=== PATIENT | male | born 1935 | race Caucasian/White ===

== ENCOUNTER 2018-04-15 13:05 | Emergency (ER) | payer MEDICARE, SELFPAY ==
[2018-04-15 13:26] VITALS: BP 160/81; PULSE 66; RESP 14; TEMP 36.8; O2SAT 96; BMI 29.0
--- NOTE | 2018-04-15 14:51 | DI.US.S_ITS ---
PROCEDURE: US PERIPH VENOUS LOW EXTREM BI INDICATIONS: BILATERAL LEG PAIN TECHNIQUE: Real-time imaging, as well as color and pulse Doppler interrogation, were performed of the deep veins of both legs from the inguinal ligament to the popliteal fossa. COMPARISON: None. FINDINGS: The deep veins are normally compressible, and free of intraluminal thrombus. Color and pulse Doppler demonstrate normal phasic intravascular flow. There is normal augmentation response to distal compression maneuver. IMPRESSION: No evidence of right lower extremity deep vein thrombosis. Dictated by: Tony Flores M.D. on 04/15/2018 at 14:32 Approved by: Tony Flores M.D. on 04/15/2018 at 14:32
[2018-04-15 15:00] VITALS: BP 152/76; PULSE 52; O2SAT 97
--- NOTE | 2018-04-15 15:32 | ED.LOWEXIN ---
HPI - Extremity Injury (Lower) General Chief Complaint: Extremity Injury, Lower Stated Complaint: THINKS HE HAS BLOOD CLOTS IN HIS LEGS Time Seen by Provider: 04/15/18 15:00 Source: patient Mode of arrival: ambulatory Limitations: no limitations History of Present Illness HPI Narrative: The patient is an 82-year-old male who presents with all right leg pain and left leg pain. He denies any recent falls. He has a history of multiple blood clots he is on Coumadin. He is worried that there might be a blood clot. He says it hurts when he is lying still sometimes when he is walking as well. He is able to walk he walks with a walker all the time. He is unable to walk without 1. He has right leg pain in the thigh on left leg pain in the groin. He feels his right leg all from his heel all the way up to his groin is hurting. Related Data Home Medications Medication Instructions Recorded Confirmed albuterol sulfate [Ventolin HFA] 2 puff INH BID #0 08/14/16 doxazosin 4 mg PO HS #0 08/14/16 hydrochlorothiazide 25 mg PO QDAY #0 08/14/16 metformin [Glucophage XR] 1,000 mg PO QPM #0 08/14/16 pantoprazole 40 mg PO QPM #0 08/14/16 warfarin [Coumadin] PO QPM #0 08/14/16 acetaminophen 2 tab PO BID #0 07/07/17 Previous Rx's Medication Instructions Recorded tramadol 50 mg PO Q6H PRN #10 tab 04/15/18 Allergies Allergy/AdvReac Type Severity Reaction Status Date / Time Penicillins [PENICILLINS] Allergy Unknown Verified 04/15/18 13:26 Review of Systems Review of Systems All systems reviewed & are unremarkable except as noted in HPI and below Constitutional Denies chills, Denies fever(s), Denies lethargy and Denies weakness Cardiovascular Denies chest pain, Denies irregular heart rhythm, Denies lightheadedness, Denies palpitations, Denies dyspnea, Denies dyspnea on exertion and Denies orthopnea Respiratory Denies cough, Denies dyspnea, Denies dyspnea on exertion and Denies wheezing Musculoskeletal Reports system reviewed and no additional complaints, except as docu Integumentary/Breasts Denies pruritus, Denies erythema, Denies rash and Denies wounds Neurologic Denies weakness Endocrine Denies palpitations Allergic/Immunologic Denies wheezing Exam Initial Vital Signs Initial Vital Signs: Vital Signs Temperature 98.2 F 04/15/18 13:26 Pulse Rate 66 04/15/18 13:26 Respiratory Rate 14 04/15/18 13:26 Blood Pressure 160/81 H 04/15/18 13:26 Pulse Oximetry 96 04/15/18 13:26 GENERAL: Alert elderly male no acute distress HEENT: Head atraumatic,EOMI, pupils reactive neck is supple CARDIOVASCULAR: Regular rate and rhythm without murmurs, rubs or gallops. RESPIRATORY: Breath sounds equal bilaterally, no wheezes rales or rhonchi. ABDOMEN: Soft, nontender. Normoactive bowel sounds all 4 quadrants. No guarding or rebound. EXTREMITIES: Normal range of motion, no clubbing or edema. Neurovascularly intact Distal pedal pulses are strong bilaterally no swelling of calves, no calf pain NEUROLOGICAL: Alert and oriented x4.Normal gait and speech. Cranial nerves II through XII grossly intact. SKIN: Warm, dry, no laceration, no petechiae, no rashes or lesions. Course Orders Ordered: ED Orders 04/15/18 14:51 US periph venous low extrem bi Stat Vital Signs - 8 hr 04/15/18 13:26 04/15/18 15:00 Temperature 98.2 F Pulse Rate 66 52 L Respiratory Rate 14 Blood Pressure 160/81 H Blood Pressure [Right Arm] 152/76 H Pulse Oximetry 96 97 MDM - Extremity Injury (Lower) Imaging Data Venous US: Radiologist's impression: PROCEDURE: US PERIPH VENOUS LOW EXTREM BI INDICATIONS: BILATERAL LEG PAIN TECHNIQUE: Real-time imaging, as well as color and pulse Doppler interrogation, were performed of the deep veins of both legs from the inguinal ligament to the popliteal fossa. COMPARISON: None. FINDINGS: The deep veins are normally compressible, and free of intraluminal thrombus. Color and pulse Doppler demonstrate normal phasic intravascular flow. There is normal augmentation response to distal compression maneuver. IMPRESSION: No evidence of right lower extremity deep vein thrombosis. Dictated by: Tony Flores M.D. on 04/15/2018 at 14:32 Discharge Plan Departure Patient Disposition: Home Clinical Impression: Osteoarthritis Discharge Date/Time: 04/15/18 16:14 Interventions: ED Discharge Assessment Last Done: 04/15/18 16:13 Instructions: DI for Arthritis Activity Restrictions/Additional Instructions: *You have been diagnosed with arthritis *What to do: Use a walker, increased walking as tolerated, no blood clot identified *Continue to take medications as directed -tramadol 50 mg every 6 hr if needed for severe pain *Follow up with your primary care provider in 2-3 days *Return to ER if you should have increasing pain, numbness, tingling, weakness or any new, worsening or concerning symptoms Prescriptions: New tramadol 50 mg tablet 50 mg PO Q6H PRN (Reason: pain) Qty: 10 RF: 0 No Action pantoprazole 40 MG tablet,delayed release (DR/EC) 40 mg PO QPM Qty: 0 RF: 0 hydrochlorothiazide 25 MG tablet 25 mg PO QDAY Qty: 0 RF: 0 warfarin [Coumadin] 5 MG tablet PO QPM Qty: 0 RF: 0 doxazosin 4 MG tablet 4 mg PO HS Qty: 0 RF: 0 albuterol sulfate [Ventolin HFA] 90 MCG/PUFF HFA aerosol inhaler 2 puff INH BID Qty: 0 RF: 0 metformin [Glucophage XR] 500 MG tablet extended release 24 hr 1,000 mg PO QPM Qty: 0 RF: 0 acetaminophen 650 MG tablet extended release 2 tab PO BID Qty: 0 RF: 0 Referrals: Jaclyn Palencia MD [Primary Care Provider] -
== END 2018-04-15 16:14 | disposition home or self-care (01) ==
PROVIDERS: Emergency Provider Emergency Medicine; PCP Internal Medicine
DX: M19.90 Unspecified osteoarthritis, unspecified site (principal)
CPT/HCPCS: 93970; 99283

== ENCOUNTER 2018-05-22 17:01 | Inpatient (IN) | payer MEDICARE, SELFPAY ==
[2018-05-22] VITALS (12 sets, daily range): BP systolic 109–138; BP diastolic 47–85; PULSE 71–104; RESP 21–28; TEMP 37.1–39.1; O2SAT 90–95; BMI 30.2
--- NOTE | 2018-05-22 | DI.CT.S_ITS ---
PROCEDURE: CT ANGIO CHEST PE PROTOCOL INDICATIONS: r/o PE or pneumonia TECHNIQUE: After the administration of intravenous contrast, 2 mm thick sections acquired from the pulmonary apices to the posterior costophrenic angles. 3-dimensional maximum intensity projection (MIP) coronal and sagittal reformats were then acquired through the thorax. For radiation dose reduction, the following was used: automated exposure control, adjustment of mA and/or kV according to patient size. COMPARISON: None. FINDINGS: Image quality: Excellent. Pulmonary arteries: Pulmonary arteries are normal in size, and demonstrate no intraluminal filling defects to suggest central pulmonary embolism. Lungs and pleura: Dependent changes are present within the bases. There is an overall appearance of increased pulmonary vascularity. No pleural effusions or pneumothorax. Central and peripheral airways are patent. Mediastinum: Heart size is normal, without pericardial effusion. No mediastinal or hilar adenopathy. Thoracic aorta is normal in caliber and enhancement. Esophagus is normal in caliber, without hiatal hernia. Bones and chest wall: No suspicious bony lesions. Ribs and thoracic spine appear intact throughout. Thyroid gland is unremarkable. No axillary or supraclavicular adenopathy. Abdomen: Multiple low attenuation hepatic foci are present suggestive of cysts. Stones are present within the gallbladder without wall thickening. Otherwise, visualized upper abdominal solid organs appear normal in the early arterial phase of enhancement. IMPRESSION: 1. No ulnar embolism. 2. Dependent changes within the bases. No consolidations or effusions. Increased pulmonary vascularity consistent with edema is present. 3. Cholelithiasis. Dictated by: Siri Samuel M.D. on 05/22/2018 at 20:33 Approved by: Siri Samuel M.D. on 05/22/2018 at 20:35
--- NOTE | 2018-05-22 17:11 | DI.CT.S_ITS ---
PROCEDURE: CT HEAD/BRAIN WO CON INDICATIONS: fall on coumadin last night TECHNIQUE: Noncontrast 4.5 mm thick angled axial sections acquired from the foramen magnum to the vertex, with coronal and sagittal reformats. For radiation dose reduction, the following was used: automated exposure control, adjustment of mA and/or kV according to patient size. COMPARISON: None. FINDINGS: Image quality: Excellent. CSF spaces: Basal cisterns are patent. No extra-axial fluid collections. The ventricles are symmetric in size and shape. Brain: No intracranial bleeds or masses. There is cerebral volume loss for age, with resultant ventricular and sulcal prominence. There are periventricular and deep white matter chronic small vessel ischemic changes. There is intracranial internal carotid artery atherosclerosis. Skull and face: Calvarium and visualized facial bones appear intact, without suspicious lesions. Sinuses: Visualized sinuses and mastoids are clear. IMPRESSION: 1. No acute intracranial process. 2. Moderate atrophy and chronic microvascular ischemic changes. Dictated by: Siri Samuel M.D. on 05/22/2018 at 18:02 Approved by: Siri Samuel M.D. on 05/22/2018 at 18:06
--- NOTE | 2018-05-22 17:11 | DI.CT.S_ITS ---
PROCEDURE: CT CERVICAL SPINE WO CON INDICATIONS: fall last night neck pain TECHNIQUE: Noncontrast 3 mm thick sections acquired from the skull base to the T4 level. Sagittal and coronal reformats were then constructed. For radiation dose reduction, the following was used: automated exposure control, adjustment of mA and/or kV according to patient size. COMPARISON: None. FINDINGS: Image quality: Excellent. Bones: No fractures or dislocations. Visualized superior ribs are intact. Multilevel degenerative disc space narrowing is present most severe at C5-6 and C6-7. There is trace anterolisthesis of C4 on C5, trace retrolisthesis of C6 on C7. Soft tissues: Prevertebral soft tissues are normal in thickness. No paravertebral hematomas. No apical pneumothoraces. IMPRESSION: No visualized fracture. Dictated by: Siri Samuel M.D. on 05/22/2018 at 18:06 Approved by: Siri Samuel M.D. on 05/22/2018 at 18:08
--- NOTE | 2018-05-22 17:12 | DI.RAD.S_ITS ---
PROCEDURE: XR CHEST 1V INDICATIONS: chest pain TECHNIQUE: One view of the chest was acquired. COMPARISON: [facility], CHEST 1 VIEW, 07/07/2017, 10:32. [facility], CHEST 1 VIEW, 08/14/2016, 13:47. FINDINGS: Surgical changes and devices: None. Lungs and pleura: No pleural effusions or pneumothorax. Increased pulmonary vascularity is present suggestive of edema. There is trace blunting of the costophrenic angles, unchanged and likely scarring. Mediastinum: Mediastinal contours appear normal. Heart size is normal. Bones and chest wall: No suspicious bony lesions. Overlying soft tissues appear unremarkable. IMPRESSION: Increased vascularity suggestive of edema. Dictated by: Siri Samuel M.D. on 05/22/2018 at 18:06 Approved by: Siri Samuel M.D. on 05/22/2018 at 18:06
[2018-05-22 17:20] LABS: Add Manual Diff / Slide Review NO; Basophils Percent Auto 0.1 % (0-2); Eosinophils Percent Auto 0.5 % (2-4); Hematocrit 41.7 % (41-53); Hemoglobin 13.8 g/dL (13.5-17.5); Lymphocytes Percent Auto 7.9 % (25-40); Mean Corpuscular HGB Conc 33.1 % (30-36); Mean Corpuscular Volume 99.7 fL (80-100); Monocytes Percent Auto 1.3 % (3-14); Neutrophils Absolute Auto 6900 /uL (3000-5900); Neutrophils Percent Auto 90.2 % (50-75); Platelet Count 121 X10^3/uL (150-400); Red Blood Cell Count 4.18 X10^6/uL (4.5-5.9); Red Cell Distribution Width 14.9 % (11.6-14.8); White Blood Cell Count 7.7 X10^3/uL (4.5-11.0)
[2018-05-22 17:21] LABS: INR 1.4 (0.9-1.3); Prothrombin Time 15.2 SECONDS (10.1-12.7)
--- NOTE | 2018-05-22 17:21 | ED_ITS ---
HPI - Weakness General Chief complaint: Weakness Stated complaint: Weakness, Shaking, fell last night Time Seen by Provider: 05/22/18 17:11 Source: EMS Mode of arrival: EMS Limitations: no limitations History of Present Illness HPI Narrative: Patient is a 82-year-old male who presents with generalized weakness and shakes. Does been ongoing for the last 2 days he has got extremely weak today he was unable to walk or stand with EMS. He visibly has she tremors. He said 2 days ago he had some significant chest pain and it went away and he was short of breath at that time. Last night he fell and hit is head he is unsure if he lost consciousness or not he has not had any vomiting. He does have some subsequent next pain from it but no numbness or tingling. MD Complaint: generalized weakness Related Data Home Medications Medication Instructions Recorded Confirmed albuterol sulfate [Ventolin HFA] 2 puff INH BID #0 08/14/16 doxazosin 4 mg PO HS #0 08/14/16 hydrochlorothiazide 25 mg PO QDAY #0 08/14/16 metformin [Glucophage XR] 1,000 mg PO QPM #0 08/14/16 pantoprazole 40 mg PO QPM #0 08/14/16 warfarin [Coumadin] PO QPM #0 08/14/16 acetaminophen 2 tab PO BID #0 07/07/17 Previous Rx's Medication Instructions Recorded tramadol 50 mg PO Q6H PRN #10 tab 04/15/18 Allergies Allergy/AdvReac Type Severity Reaction Status Date / Time Penicillins [PENICILLINS] Allergy Unknown Verified 04/15/18 13:26 Review of Systems Review of Systems All systems reviewed & are unremarkable except as noted in HPI and below Constitutional Reports body ache(s), Reports fatigue, Denies frequent falls and Reports headache(s) Eyes Denies change in vision, Denies eye discharge, Denies irritation and Denies loss of vision ENT Ears, Nose, Mouth, and Throat: Reports headache(s) Cardiovascular Reports as per HPI, Reports chest pain and Reports dyspnea Respiratory Reports as per HPI, Denies cough and Reports dyspnea Gastrointestinal Gastrointestinal: Denies abdominal pain, Denies change in bowel habits, Denies diarrhea, Denies nausea and Denies vomiting Musculoskeletal Reports myalgias Integumentary/Breasts Denies pruritus, Denies erythema, Denies rash and Denies wounds Neurologic Denies abnormal speech, Denies frequent falls, Reports headache(s), Denies loss of vision and Reports tremor(s) Endocrine Reports fatigue PFSH Medical History Colon cancer (Acute) DVT (deep venous thrombosis) (Acute) Diabetes (Acute) Social History Smoking Status: Former smoker Exam Initial Vital Signs Initial Vital Signs: Vital Signs Temperature 99.2 F 05/22/18 17:02 Pulse Rate 97 H 05/22/18 17:02 Respiratory Rate 21 05/22/18 17:02 Blood Pressure 138/65 05/22/18 17:02 Pulse Oximetry 92 05/22/18 17:02 Const General: cooperative and ill appearing Orientation: alert, awake and oriented x3 Other: Visible tremors and rigors HENMT Head: abrasion (Posterior) Ears: hearing grossly normal bilaterally Nose: external nose normal Eyes General: appearance normal, both eyes and all related structures Eyelids: eyelids normal Pupils: PERRL EOM: EOM intact bilaterally Neck Neck: tender (Mid line tenderness no step-offs collar placed in the ED) Chest Chest: normal inspection of the chest Resp Effort & Inspection: normal respiratory effort and able to speak in complete sentences Auscultation: clear to auscultation bilaterally, no rales, no rhonchi and no wheezes Cardio Rate: regular rate Rhythm: regular rhythm Heart Sounds: S1 normal and S2 normal GI Inspection: non-distended Palpation: soft, no hepatosplenomegaly, No guarding, No pulsatile mass and No tender Auscultation: normal bowel sounds Skin General: mottling and cool/cold Trauma: abrasion (Posterior head no surrounding erythema wound is healing) Neuro General: alert, awake, oriented x3 and deep tendon reflexes 2+ bilaterally Cranial Nerves: CN's II-XI intact bilaterally Cognition: normal cognition Speech: speech normal Motor: strength abnormal (Weaker in lower extremities especially left leg) Extrem General: normal to inspection and full ROM Scores qSOFA Altered Mental Status (GCS <15): No Respiratory rate greater than/equal to 22: Yes Systolic blood pressure less than or equal to 100: No qSOFA Total: 1 0-1 Not High Risk 1-3 High risk Course Orders Ordered: ED Orders 05/22/18 16:50 Complete Blood Count AUTO DIFF Stat Comprehensive Metabolic Panel Stat Partial Thromboplastin Time Stat Procalcitonin Stat Prothrombin Time INR Stat Troponin & CK Cardiac Panel Stat 05/22/18 17:11 CT cervical spine wo con Stat CT head/brain wo con Stat EKG-12 Lead Routine 05/22/18 17:12 XR chest 1V Stat 05/22/18 17:34 B Type Natriuretic Peptide Stat 05/22/18 17:42 Ictotest Urine Stat Urinalysis and Microscopic Stat Urine Culture Stat 05/22/18 17:50 Lactate (Lactic Acid) Stat 05/22/18 18:05 Blood Culture Stat Sodium Chloride (Normal Saline 0.9%) 1,000 mls @ 200 mls/hr IV CONT DEIDRA Last Infusion: 05/22/18 18:10 Dose: 150 mls/hr Admin: 05/22/18 17:38 Dose: 200 mls/hr Levofloxacin (Levaquin) 750 mg in 150 mls @ 100 mls/hr IV NOW ONE Stop: 05/22/18 19:28 Metronidazole (Flagyl) 500 mg in 100 mls @ 100 mls/hr IV NOW ONE Stop: 05/22/18 19:28 Sodium Chloride (Normal Saline 0.9%) 3,374.73 mls @ 1,124.91 mls/hr 30 ml/kg infuse over 3 hr (3374.73 ml) IV CONT DEIDRA Discontinued Medications Acetaminophen (Tylenol) 975 mg PO NOW ONE Stop: 05/22/18 17:50 Last Admin: 05/22/18 17:51 Dose: 975 mg Vital Signs - 8 hr 05/22/18 17:02 05/22/18 17:57 05/22/18 18:23 Temperature 99.2 F Pulse Rate 97 H 101 H 99 H Respiratory Rate 21 21 26 H Blood Pressure 138/65 Blood Pressure [Left Arm] 131/54 L Pulse Oximetry 92 95 94 MDM - Weakness Lab Data Attestation: I reviewed the patient's lab results. Result diagrams: 05/22/18 16:50 05/22/18 16:50 Lab Results 05/22/18 05/22/18 05/22/18 Range/Units 16:50 16:50 16:50 WBC 7.7 (4.5-11.0) X10^3/uL RBC 4.18 L (4.5-5.9) X10^6/uL Hgb 13.8 (13.5-17.5) g/dL Hct 41.7 (41-53) % MCV 99.7 (80-100) fL MCH 33.0 (26-34) PG MCHC 33.1 (30-36) % RDW 14.9 H (11.6-14.8) % Plt Count 121 L (150-400) X10^3/uL Neut % (Auto) 90.2 H (50-75) % Lymph % (Auto) 7.9 L (25-40) % [place] % (Auto) 1.3 L (3-14) % Eos % (Auto) 0.5 L (2-4) % Baso % (Auto) 0.1 (0-2) % Neut # (Auto) 6900 H (4513-5469) /uL PT 15.2 H (10.1-12.7) SECONDS INR 1.4 H (0.9-1.3) APTT 28 (26.4-36.2) SECONDS Sodium 147 H (137-145) mmol/L Potassium 3.4 (3.4-5.1) mmol/L Chloride 102 (98-107) mmol/L Carbon Dioxide 26 (22-32) mmol/L BUN 41 H (9-20) mg/dL Creatinine 1.10 (0.66-1.25) mg/dL Estimated GFR > 60.0 (>60) mL/min BUN/Creatinine Ratio 37.3 H (6-22) Glucose 124 H (80-110) mg/dL Lactate (0.7-2.1) mmol/L Calcium 9.2 (8.4-10.2) mg/dL Total Bilirubin 2.9 H (0.2-1.3) mg/dL AST 60 H (17-59) IU/L ALT 102 H (21-72) IU/L Alkaline Phosphatase 77 (38-126) U/L Total Creatine Kinase 150 (55-170) U/L CK-MB (CK-2) 1.90 (<2.37) ng/mL CK-MB (CK-2) Rel Index 1.3 L (1.5-5.0) % Troponin I 0.048 H (0.01-0.034) ng/mL Total Protein 7.3 (6.3-8.2) g/dL Albumin 4.3 (3.5-5.0) g/dL Globulin 3.0 (1.7-4.1) g/dL Albumin/Globulin Ratio 1.4 (1.0-2.8) Procalcitonin (<0.5) ng/mL Urine Color Urine Appearance Urine pH (4.5-8.0) Ur Specific [place] (1.000-1.035) Urine Protein (Negative) Urine Glucose (UA) (Normal) g/dL Urine Ketones (NEGATIVE) Urine Occult Blood (Negative) Urine Nitrate (Negative) Urine Bilirubin (NEGATIVE) Urine Ictotest (Negative) Urine Urobilinogen (0.2) E.U./dL Ur Leukocyte Esterase (NEGATIVE) Urine RBC (0-5/HPF) Urine WBC (0-5/HPF) Ur Squamous Epith Cells Amorphous Sediment Urine Bacteria (None) Hyaline Casts (None) Urine Mucus (Negative) Ur Culture Indicated? Micro UA Comment 05/22/18 05/22/18 05/22/18 Range/Units 16:50 17:42 17:50 WBC (4.5-11.0) X10^3/uL RBC (4.5-5.9) X10^6/uL Hgb (13.5-17.5) g/dL Hct (41-53) % MCV (80-100) fL MCH (26-34) PG MCHC (30-36) % RDW (11.6-14.8) % Plt Count (150-400) X10^3/uL Neut % (Auto) (50-75) % Lymph % (Auto) (25-40) % [place]ner % (Auto) (3-14) % Eos % (Auto) (2-4) % Baso % (Auto) (0-2) % Neut # (Auto) (2440-0325) /uL PT (10.1-12.7) SECONDS INR (0.9-1.3) APTT (26.4-36.2) SECONDS Sodium (137-145) mmol/L Potassium (3.4-5.1) mmol/L Chloride (98-107) mmol/L Carbon Dioxide (22-32) mmol/L BUN (9-20) mg/dL Creatinine (0.66-1.25) mg/dL Estimated GFR (>60) mL/min BUN/Creatinine Ratio (6-22) Glucose (80-110) mg/dL Lactate 4.6 H (0.7-2.1) mmol/L Calcium (8.4-10.2) mg/dL Total Bilirubin (0.2-1.3) mg/dL AST (17-59) IU/L ALT (21-72) IU/L Alkaline Phosphatase (38-126) U/L Total Creatine Kinase (55-170) U/L CK-MB (CK-2) (<2.37) ng/mL CK-MB (CK-2) Rel Index (1.5-5.0) % Troponin I (0.01-0.034) ng/mL Total Protein (6.3-8.2) g/dL Albumin (3.5-5.0) g/dL Globulin (1.7-4.1) g/dL Albumin/Globulin Ratio (1.0-2.8) Procalcitonin 10.97 H (<0.5) ng/mL Urine Color Yellow Urine Appearance Clear Urine pH 5.0 (4.5-8.0) Ur Specific [place] 1.025 (1.000-1.035) Urine Protein 1+ H (Negative) Urine Glucose (UA) Negative (Normal) g/dL Urine Ketones Trace H (NEGATIVE) Urine Occult Blood Trace-intact (Negative) Urine Nitrate Negative (Negative) Urine Bilirubin 1+ H (NEGATIVE) Urine Ictotest Negative (Negative) Urine Urobilinogen 1.0 (0.2) E.U./dL Ur Leukocyte Esterase Trace H (NEGATIVE) Urine RBC 0-1/hpf (0-5/HPF) Urine WBC 1-5/hpf (0-5/HPF) Ur Squamous Epith Cells 1-5 /hpf Amorphous Sediment 2+ Urine Bacteria Few (2-10) H (None) Hyaline Casts 0-1/lpf (None) Urine Mucus 2+ H (Negative) Ur Culture Indicated? Specimen cultured Micro UA Comment Not Reportable Imaging Data Chest x-ray: Radiologist's impression: PROCEDURE: XR CHEST 1V INDICATIONS: chest pain TECHNIQUE: One view of the chest was acquired. COMPARISON: formerly [facility], CHEST 1 VIEW, 07/07/2017, 10:32. formerly [facility], CHEST 1 VIEW, 08/14/2016, 13:47. FINDINGS: Surgical changes and devices: None. Lungs and pleura: No pleural effusions or pneumothorax. Increased pulmonary vascularity is present suggestive of edema. There is trace blunting of the costophrenic angles, unchanged and likely scarring. Mediastinum: Mediastinal contours appear normal. Heart size is normal. Bones and chest wall: No suspicious bony lesions. Overlying soft tissues appear unremarkable. IMPRESSION: Increased vascularity suggestive of edema. Dictated by: Siri Samuel M.D. on 05/22/2018 at 18:06 CT scan - head: Radiologist's impression: PROCEDURE: CT HEAD/BRAIN WO CON INDICATIONS: fall on coumadin last night TECHNIQUE: Noncontrast 4.5 mm thick angled axial sections acquired from the foramen magnum to the vertex, with coronal and sagittal reformats. For radiation dose reduction, the following was used: automated exposure control, adjustment of mA and/or kV according to patient size. COMPARISON: None. FINDINGS: Image quality: Excellent. CSF spaces: Basal cisterns are patent. No extra-axial fluid collections. The ventricles are symmetric in size and shape. Brain: No intracranial bleeds or masses. There is cerebral volume loss for age , with resultant ventricular and sulcal prominence. There are periventricular and deep white matter chronic small vessel ischemic changes. There is intracranial internal carotid artery atherosclerosis. Skull and face: Calvarium and visualized facial bones appear intact, without suspicious lesions. Sinuses: Visualized sinuses and mastoids are clear. IMPRESSION: 1. No acute intracranial process. 2. Moderate atrophy and chronic microvascular ischemic changes. Dictated by: Siri Samuel M.D. on 05/22/2018 at 18:02 CT Cervical: Radiologist's impression: PROCEDURE: CT CERVICAL SPINE WO CON INDICATIONS: fall last night neck pain TECHNIQUE: Noncontrast 3 mm thick sections acquired from the skull base to the T4 level. Sagittal and coronal reformats were then constructed. For radiation dose reduction, the following was used: automated exposure control, adjustment of mA and/or kV according to patient size. COMPARISON: None. FINDINGS: Image quality: Excellent. Bones: No fractures or dislocations. Visualized superior ribs are intact. Multilevel degenerative disc space narrowing is present most severe at C5-6 and C6-7. There is trace anterolisthesis of C4 on C5, trace retrolisthesis of C6 on C7. Soft tissues: Prevertebral soft tissues are normal in thickness. No paravertebral hematomas. No apical pneumothoraces. IMPRESSION: No visualized fracture. Dictated by: Siri Samuel M.D. on 05/22/2018 at 18:06 ECG Data Attestation: I personally reviewed and interpreted this ECG as follows: Prior ECG tracings: available for review Interpretation: Sinus rhythm rate 91 here interval 194 QRS 110 QTC 407 Q-waves noted in lead 3 previous EKG is similar. No acute ST or ischemic changes MDM Narrative Medical decision making narrative: Patient is hemodynamically stable. He has an increased lactic acid increased procalcitonin. No true findings of sepsis. His abdomen does remain soft. A chest x-ray did not show any pneumonia urine is clean. He is given IV fluids and empirically treated with Levaquin and Flagyl. Dr. Zambrano has been updated on patient's symptoms and test results. Agrees with admission request Flagyl. Discharge Plan Departure Patient Disposition: Admitted As Inpatient Clinical Impression: Sepsis Admit Date/Time: 05/22/18 18:29 Admit Provider: Eleanor Zambrano
[2018-05-22 17:23] LABS: PTT Partial Thromboplastin Tim 28 SECONDS (26.4-36.2)
[2018-05-22 17:34] LABS: Alanine Aminotransferase 102 IU/L (21-72); Albumin 4.3 g/dL (3.5-5.0); Albumin Globulin Ratio 1.4 (1.0-2.8); Alkaline Phosphatase 77 U/L (38-126); Aspartate Aminotransferase 60 IU/L (17-59); BUN Creatinine Ratio 37.3 (6-22); Bilirubin Total 2.9 mg/dL (0.2-1.3); Blood Urea Nitrogen 41 mg/dL (9-20); Calcium 9.2 mg/dL (8.4-10.2); Carbon Dioxide 26 mmol/L (22-32); Chloride 102 mmol/L (98-107); Creatine Kinase 150 U/L (55-170); Estimated Glomerular Filt Rate > 60.0 mL/min (>60); Glucose 124 mg/dL (80-110); HEMOLYSIS 23 (0-50); Potassium 3.4 mmol/L (3.4-5.1); Sodium 147 mmol/L (137-145); Total Protein 7.3 g/dL (6.3-8.2)
[2018-05-22] MEDS: SODIUM CHLORIDE 0.9% 1,000 ML 200 ML IV (17:38)
--- NOTE | 2018-05-22 17:40 | PC.NURSE ---
pt arrived with ns, 100ml infused, now infusing at 200ml hr via pump.
[2018-05-22 17:42] LABS: Procalcitonin 10.97 ng/mL (<0.5)
[2018-05-22 17:50] LABS: CKMB % Relative Index 1.3 % (1.5-5.0)
--- NOTE | 2018-05-22 17:50 | PC.NURSE ---
and lactate, pt requeted oxygen, applied 2lpm via nc.
[2018-05-22] MEDS: ACETAMINOPHEN 325 MG TABLET 975 MG PO (17:51)
[2018-05-22 17:57] LABS: Appearance Urine UA CLEAR; Bilirubin Urine UA 1+ (NEGATIVE); Color Urine UA YELLOW; Glucose Urine UA NEGATIVE (Normal); Ketones Urine UA TRACE (NEGATIVE); Leukocyte Esterase Urine UA TRACE (NEGATIVE); Nitrite Urine UA Negative (Negative); Occult Blood Urine UA TRACE-INTACT (Negative); Protein Urine UA 1+ (Negative); Specific Gravity Urine UA 1.025 (1.000-1.035)
[2018-05-22 18:10] LABS: Lactate (Lactic Acid) 4.6 mmol/L (0.7-2.1)
--- NOTE | 2018-05-22 18:13 | PC.NURSE ---
noted pt with generalized skin modeling, warm blanket applied. dr osman made aware.
[2018-05-22 18:24] LABS: Ictotest Urine Negative (Negative)
[2018-05-22 18:25] LABS: Amorphous Sediment Urine 2+; Bacteria Urine Few (2-10); Hyaline Casts Urine 0-1/LPF; Mucus Urine 2+ (Negative); RBC Urine 0-1/HPF (0-5/HPF); Squamous Epithelial Cell Urine 1-5 /HPF; WBC Urine 1-5/HPF (0-5/HPF)
[2018-05-22 18:26] LABS: Culture Indicated Urine Specimen Cultured
[2018-05-22 18:29] LABS: Troponin I 0.048 ng/mL (0.01-0.034)
--- NOTE | 2018-05-22 18:35 | PC.NURSE ---
recieved permission to give information to daughter antonia, daughter updated with plan of care. pt admission to the hospital.
--- NOTE | 2018-05-22 18:41 | PC.NURSE ---
change infusion rate to wide open vo dr osman
[2018-05-22] MEDS: levoFLOXacin 750 MG/150 ML PIGGYBACK 100 MG IV (18:42)
[2018-05-22] MEDS: SODIUM CHLORIDE 0.9% 999 ML IV (18:48)
--- NOTE | 2018-05-22 18:50 | PC.NURSE ---
pt remain alert and awake, no furthur scheevering, skin warm dry pink, maew. no nausea at this time.
--- NOTE | 2018-05-22 20:02 | P.HP_ITS ---
History of Present Illness Date Patient Seen: 05/22/18 Chief complaint: Weakness, Shaking, fell last night Narrative: Patient is an 82-year-old male with history of diabetes, GERD, history of multiple PEs, chronic lower extremity edema who was well until yesterday. Patient was helping his with Alzheimer's I get back to bed. He was attempting to write information down when he fell backwards hitting his head. He also reported having an episode of chest pressure. The pain was sharp. The pain lasted 20 min. It radiated down the left arm. He had associated shortness of breath which is chronic. He denied any palpitations. He had no sweating. He did feel chills. Patient reports shaking chills. He has documented fever of 102 here. He has had headaches since his fall. But he denies any cough or sneezing. Patient does have runny nose which is chronic. He is chronically short of breath. He uses an inhaler. His chest pain has since resolved. He has no history of cardiac disease. Patient was evaluated in the emergency department. CT scan of the head was negative. CT of the cervical spine was negative. Patient had a chest x-ray which was unremarkable. He had a UA which was negative. Patient was found to have a lactate of over 4. He received IV fluids for presumed severe sepsis. Patient's troponin was mildly elevated at 0.04. Procalcitonin was 10. Pa Coumadin for blood clots but noted elevated INR when taking ibuprofen. He was taking ibuprofen for chronic leg pain. Because of the chronic leg pain the patient I discontinued his Coumadin and has been alternating his Coumadin with ibuprofen. His INR upon admission was 1.4. Patient is admitted to the hospital for further evaluation. Patient History Medical History Colon cancer (Acute) DVT (deep venous thrombosis) (Acute) Diabetes (Acute) Family & Social History Safety & Behavioral: Feels Safe in Current Yes Environment Tobacco & Substance use: Smoking Status Former smoker Substance Use Type does not use Meds Home Medications Medication Instructions Recorded Confirmed Type albuterol sulfate [Ventolin HFA] 2 puff INH BID #0 08/14/16 05/22/18 History doxazosin 4 mg PO HS #0 08/14/16 05/22/18 History metformin [Glucophage XR] 1,000 mg PO QPM #0 08/14/16 05/22/18 History pantoprazole 40 mg PO QDRHS #0 08/14/16 05/22/18 History warfarin [Coumadin] 5 mg PO QPM #0 08/14/16 05/22/18 History acetaminophen 2 tab PO BID #0 07/07/17 05/22/18 History tramadol 50 mg PO Q6H PRN #10 tab 04/15/18 05/22/18 Rx Multi-Vitamins with Iron 1 tab PO DAILY 05/22/18 05/22/18 History gabapentin 300 mg PO BID 05/22/18 05/22/18 History Allergies Allergy/AdvReac Type Severity Reaction Status Date / Time Penicillins [PENICILLINS] Allergy Unknown Verified 04/15/18 13:26 Review of Systems Review of Systems All systems reviewed & are unremarkable except as noted in HPI and below Exam Vital Signs (past 8 hours): - 05/22/18 17:02 05/22/18 17:57 05/22/18 18:23 Temperature 99.2 F Pulse Rate 97 H 101 H 99 H Respiratory Rate 21 21 26 H Blood Pressure 138/65 Blood Pressure [Left Arm] 131/54 L Pulse Oximetry 92 95 94 05/22/18 18:30 05/22/18 18:46 Temperature 101.2 F H Pulse Rate 98 H Respiratory Rate 28 H Blood Pressure Blood Pressure [Left Arm] 127/47 L Pulse Oximetry 95 Oxygen Delivery Method Nasal Cannula Oxygen Flow Rate 2 Narrative Exam Narrative: Pleasant white male resting comfortably in no acute distress HEENT: NC/At, EOMI, Oropharynx dry mucus membranes, neck supple without adenopathy Lungs: Decreased breath sounds with left basilar crackles CV: RRR nl S1S2 2/6 BENITA Abd: Soft/ non tender/ non distended, no rebound tenderness, no boardlike rigidity, no palpable masses EXt: cool 1+ edema bilaterally Neuro: weak in lower extremities, non focal Skin: no lesions Psych: no delusions or hallucinations Objective Labs Result Diagrams: 05/22/18 16:50 05/22/18 16:50 Labs: Laboratory Results - last 24 hr 05/22/18 05/22/18 05/22/18 16:50 16:50 16:50 WBC 7.7 RBC 4.18 L Hgb 13.8 Hct 41.7 MCV 99.7 MCH 33.0 MCHC 33.1 RDW 14.9 H Plt Count 121 L Neut % (Auto) 90.2 H Lymph % (Auto) 7.9 L Emanuel % (Auto) 1.3 L Eos % (Auto) 0.5 L Baso % (Auto) 0.1 Neut # (Auto) 6900 H PT 15.2 H INR 1.4 H APTT 28 Sodium 147 H Potassium 3.4 Chloride 102 Carbon Dioxide 26 BUN 41 H Creatinine 1.10 Estimated GFR > 60.0 BUN/Creatinine Ratio 37.3 H Glucose 124 H Lactate Calcium 9.2 Total Bilirubin 2.9 H AST 60 H ALT 102 H Alkaline Phosphatase 77 Total Creatine Kinase 150 CK-MB (CK-2) 1.90 CK-MB (CK-2) Rel Index 1.3 L Troponin I 0.048 H B-Natriuretic Peptide Total Protein 7.3 Albumin 4.3 Globulin 3.0 Albumin/Globulin Ratio 1.4 Procalcitonin Urine Color Urine Appearance Urine pH Ur Specific [place] Urine Protein Urine Glucose (UA) Urine Ketones Urine Occult Blood Urine Nitrate Urine Bilirubin Urine Ictotest Urine Urobilinogen Ur Leukocyte Esterase Urine RBC Urine WBC Ur Squamous Epith Cells Amorphous Sediment Urine Bacteria Hyaline Casts Urine Mucus Ur Culture Indicated? Micro UA Comment 05/22/18 05/22/18 05/22/18 16:50 17:34 17:42 WBC RBC Hgb Hct MCV MCH MCHC RDW Plt Count Neut % (Auto) Lymph % (Auto) Emanuel % (Auto) Eos % (Auto) Baso % (Auto) Neut # (Auto) PT INR APTT Sodium Potassium Chloride Carbon Dioxide BUN Creatinine Estimated GFR BUN/Creatinine Ratio Glucose Lactate Calcium Total Bilirubin AST ALT Alkaline Phosphatase Total Creatine Kinase CK-MB (CK-2) CK-MB (CK-2) Rel Index Troponin I B-Natriuretic Peptide 617.0 H Total Protein Albumin Globulin Albumin/Globulin Ratio Procalcitonin 10.97 H Urine Color Yellow Urine Appearance Clear Urine pH 5.0 Ur Specific [place] 1.025 Urine Protein 1+ H Urine Glucose (UA) Negative Urine Ketones Trace H Urine Occult Blood Trace-intact Urine Nitrate Negative Urine Bilirubin 1+ H Urine Ictotest Negative Urine Urobilinogen 1.0 Ur Leukocyte Esterase Trace H Urine RBC 0-1/hpf Urine WBC 1-5/hpf Ur Squamous Epith Cells 1-5 /hpf Amorphous Sediment 2+ Urine Bacteria Few (2-10) H Hyaline Casts 0-1/lpf Urine Mucus 2+ H Ur Culture Indicated? Specimen cultured Micro UA Comment Not Reportable 05/22/18 17:50 WBC RBC Hgb Hct MCV MCH MCHC RDW Plt Count Neut % (Auto) Lymph % (Auto) Emanuel % (Auto) Eos % (Auto) Baso % (Auto) Neut # (Auto) PT INR APTT Sodium Potassium Chloride Carbon Dioxide BUN Creatinine Estimated GFR BUN/Creatinine Ratio Glucose Lactate 4.6 H Calcium Total Bilirubin AST ALT Alkaline Phosphatase Total Creatine Kinase CK-MB (CK-2) CK-MB (CK-2) Rel Index Troponin I B-Natriuretic Peptide Total Protein Albumin Globulin Albumin/Globulin Ratio Procalcitonin Urine Color Urine Appearance Urine pH Ur Specific [place] Urine Protein Urine Glucose (UA) Urine Ketones Urine Occult Blood Urine Nitrate Urine Bilirubin Urine Ictotest Urine Urobilinogen Ur Leukocyte Esterase Urine RBC Urine WBC Ur Squamous Epith Cells Amorphous Sediment Urine Bacteria Hyaline Casts Urine Mucus Ur Culture Indicated? Micro UA Comment Assessment & Plan (1) Severe sepsis: Problem details: Patient has had blood cultures drawn, is currently receiving 30 Cc/kg of IVF, Has been started on broad spectrum antibiotics. Will recheck lactate again Current visit: Yes Status: Acute (2) History of pulmonary embolus (PE): Problem details: Given history of chest pain, known recurrent PE's and low INR, will check CTA to r/o PE tonight Current visit: Yes Status: Acute (3) Dehydration: Problem details: Continue IV hydration as above Current visit: Yes Status: Acute (4) Hypernatremia: Problem details: Likely secondary to dehydration Current visit: Yes Status: Acute (5) Chest pain: Problem details: Serial cardiac enzymes and evaluate EKG. Current visit: No Status: Acute Plan: Assessment/Plan Narrative: Patient request to be DNR 60 minutes spent on this critcally ill patient
[2018-05-22 21:57] LABS: Reflexed Lactate in 2 Hours Y
[2018-05-22] MEDS: SODIUM CHLORIDE 0.9% 1,000 ML 100 ML IV (22:05)
[2018-05-22] MEDS: CEFTRIAXONE 2 GM/50 ML FROZ.PIGGY IV (22:06)
[2018-05-22] MEDS: DOCUSATE 100 MG CAPSULE PO (22:14)
[2018-05-22] MEDS: GABAPENTIN 300 MG CAPSULE PO (22:14)
[2018-05-22 22:28] LABS: Lactate 2HR (Lactic Acid Rflx) 1.4 mmol/L (0.7-2.1)
--- NOTE | 2018-05-22 22:39 | DI.US.S_ITS ---
PROCEDURE: US ABDOMEN COMPLETE INDICATIONS: GALLSTONES ON CT TECHNIQUE: Real-time scanning was performed of the abdominal and retroperitoneal organs, with image documentation. COMPARISON: None. FINDINGS: Liver: Liver is normal in size and homogeneous in echotexture, moderately hyperechoic consistent with fatty infiltration. There are several scattered simple appearing hepatic cysts measuring up to 4.4 cm of the right anterior hepatic segment and then also measuring up to 3.6 cm at the medial left hepatic lobe. Gallbladder: The gallbladder contains numerous stones, the largest of which measures up to 1.9 cm and is appear non-mobile, at and adjacent to the gallbladder neck. The gallbladder wall is abnormally thickened at 4.6-5.0 mm. Biliary ducts: Intrahepatic bile ducts are non-dilated. Extrahepatic bile duct caliber measures 12.0 mm. Normal is 6-7 mm or less in diameter, or 10 mm or less post-cholecystectomy. Pancreas: Visualized portions of the pancreas are sonographically normal. Spleen: Spleen is just above the upper limits of normal in size at 13 point for centimeters craniocaudad and homogeneous in echotexture. Kidneys: Kidneys are normal in size and echotexture. Right kidney measures 13.8 cm long; left kidney measures 15.3 cm long. No hydronephrosis or nephrolithiasis. No solid masses. Aorta: Visualized aorta is normal in caliber at less than 3 cm. Iliacs: Proximal common iliac arteries are normal in caliber at less than 2.5 cm. IVC: Intrahepatic inferior vena cava is patent. Miscellaneous: No free abdominal fluid. IMPRESSION: Abnormal gallbladder wall thickening, impacted calculi noted at the gallbladder neck area. Acute cholecystitis may explain the gallbladder wall thickening but chronic cholecystitis can also produce this appearance. Please correlate clinically. Abnormal distention of the common bile duct measuring up to 12 mm. Depending on clinical status this may indicate presence of the distal common duct stone which couldn't be adequately detected by MR cholangiogram. Incidental mode is made of moderate fatty infiltration throughout the liver. Mild splenomegaly. Dictated by: Harvey Yun M.D. on 05/23/2018 at 9:49 Approved by: Harvey Yun M.D. on 05/23/2018 at 9:54
--- NOTE | 2018-05-22 22:42 | PC.NURSE ---
1900 - Pt to room for ER. Transfer to bed via slider board. Temp on arrival 102.4. IVF bolus infusing. Oriented to room and routine. Dr. Zambrano into see pt. 1954 - Pt to CT with WALT Deutsch. R/o PE. 2199 - Dr. Zambrano called in to check CT results. Order obtained for [place]. in am. request call back with Lactate results. 2234 - Dr. Zambrano notified of Lactate results. Reviewed current vital signs. BP 115/68, HR 105, Temp 98.8. Orders obtained.
[2018-05-22] MEDS: AZITHROMYCIN 250 MG in DEXTROSE 5% IN WATER 250 ML IV (23:54)
[2018-05-23] VITALS (15 sets, daily range): BP systolic 105–150; BP diastolic 39–81; PULSE 58–103; RESP 14–28; TEMP 37.1–37.6; O2SAT 89–98
[2018-05-23] MEDS: ACETAMINOPHEN 325 MG TABLET 650 MG PO ×2 (02:47→08:35)
[2018-05-23 05:08] LABS: Add Manual Diff / Slide Review NO; Basophils Percent Auto 0.2 % (0-2); Eosinophils Percent Auto 0.4 % (2-4); Hematocrit 33.8 % (41-53); Hemoglobin 11.4 g/dL (13.5-17.5); Lymphocytes Percent Auto 6.7 % (25-40); Mean Corpuscular HGB Conc 33.8 % (30-36); Mean Corpuscular Hemoglobin 32.9 PG (26-34); Mean Corpuscular Volume 97.2 fL (80-100); Monocytes Percent Auto 5.8 % (3-14); Neutrophils Absolute Auto 6700 /uL (3000-5900); Neutrophils Percent Auto 86.9 % (50-75); Platelet Count 82 X10^3/uL (150-400); Red Blood Cell Count 3.48 X10^6/uL (4.5-5.9); Red Cell Distribution Width 14.3 % (11.6-14.8); White Blood Cell Count 7.7 X10^3/uL (4.5-11.0)
[2018-05-23 05:14] LABS: Alanine Aminotransferase 67 IU/L (21-72); Albumin 3.1 g/dL (3.5-5.0); Albumin Globulin Ratio 1.2 (1.0-2.8); Alkaline Phosphatase 57 U/L (38-126); Aspartate Aminotransferase 32 IU/L (17-59); Bilirubin Total 2.3 mg/dL (0.2-1.3); Blood Urea Nitrogen 27 mg/dL (9-20); Calcium 7.8 mg/dL (8.4-10.2); Carbon Dioxide 24 mmol/L (22-32); Chloride 108 mmol/L (98-107); Estimated Glomerular Filt Rate > 60.0 mL/min (>60); Globulin 2.5 g/dL (1.7-4.1); Glucose 142 mg/dL (80-110); HEMOLYSIS < 15 (0-50); Potassium 3.1 mmol/L (3.4-5.1); Sodium 141 mmol/L (137-145); Total Protein 5.6 g/dL (6.3-8.2)
[2018-05-23 05:25] LABS: Troponin I 0.054 ng/mL (0.01-0.034)
[2018-05-23] MEDS: INSULIN ASPART 100 UNIT/ML INSULN PEN SUBCUT ×2 (06:18→11:55)
--- NOTE | 2018-05-23 06:25 | PC.NURSE ---
This RN worked with Yajaira GODOY and agree with her assessment findings, ordered interventions, and care of the patient.
[2018-05-23] MEDS: GABAPENTIN 300 MG CAPSULE PO (08:35)
[2018-05-23] MEDS: ENOXAPARIN 40 MG/0.4 ML SYRINGE SUBCUT (08:35)
[2018-05-23] MEDS: PANTOPRAZOLE 40 MG TABLET PO ×2 (08:35→08:39)
[2018-05-23] MEDS: DOCUSATE 100 MG CAPSULE PO (08:36)
[2018-05-23 08:54] LABS: Acinetobacter baumannii Not Detected (Not Detect); Candida albicans Not Detected (Not Detect); Candida glabrata Not Detected (Not Detect); Candida krusei Not Detected (Not Detect); Candida parapsilosis Not Detected (Not Detect); Candida tropicalis Not Detected (Not Detect); E. coli Detected (Not Detect); Enterobacter cloacae complex Not Detected (Not Detect); Enterobacteriaceae species Not Detected (Not Detect); Enterococcus species Not Detected (Not Detect); Haemophilus influenzae Not Detected (Not Detect); KPC (carbapenem-resist gene) Not Detected (Not Detect); Listeria monocytogenes Not Detected (Not Detect); Neisseria meningitidis Not Detected (Not Detect); Proteus species Not Detected (Not Detect); Pseudomonas aeruginosa Not Detected (Not Detect); Serratia marcescens Not Detected (Not Detect); Staphylococcus species Not Detected (Not Detect); Streptococcus agalactiae (Gr B Not Detected (Not Detect); Streptococcus pneumonia Not Detected (Not Detect); Streptococcus pyogenes (Gr A) Not Detected (Not Detect); Streptococcus species Not Detected (Not Detect)
--- NOTE | 2018-05-23 11:34 | PM.PN.1 ---
Subjective Date Patient Seen: 05/23/18 Interval history: Patient complains of being thirsty, dry mouth, and back pain. He denies any abdominal pain. He really wants to eat. Overnight events were unremarkable Exam Vital Signs (past 8 hours): - 05/23/18 04:00 05/23/18 05:00 05/23/18 06:00 Temperature 99.2 F 99.1 F Pulse Rate 65 60 63 Respiratory Rate 28 H 25 H 18 Blood Pressure 105/39 L 107/55 L 128/64 Pulse Oximetry 97 98 95 05/23/18 07:00 05/23/18 07:31 05/23/18 08:02 Temperature Pulse Rate 70 Respiratory Rate 17 Blood Pressure 116/55 L Pulse Oximetry 97 97 96 05/23/18 08:11 05/23/18 08:30 05/23/18 08:35 Temperature 99.0 F 99.7 F H 99.7 F H Pulse Rate 73 Respiratory Rate 14 Blood Pressure 150/81 H Pulse Oximetry 95 05/23/18 10:39 Temperature Pulse Rate Respiratory Rate Blood Pressure Pulse Oximetry 96 Oxygen Delivery Method Nasal Cannula Oxygen Flow Rate 2 Narrative Exam Narrative: Pleasant gentleman in no acute distress Lungs: clear to auscultation CV:tachycardic nl S1S2 2/6 BENITA Abd: mildly distended, soft/ non tender/ hypoactive bowel tones/no boardlike rigidity or masses palpated Ext: no edema Objective Labs Result Diagrams: 05/23/18 04:43 05/23/18 04:43 Labs: Laboratory Results - last 24 hr No ulnar embolism. 2. Dependent changes within the bases. No consolidations or effusions. Increased pulmonary vascularity consistent with edema is present. 3. Cholelithiasis. Abnormal gallbladder wall thickening, impacted calculi noted at the gallbladder neck area. Acute cholecystitis may explain the gallbladder wall thickening but chronic cholecystitis can also produce this appearance. Please correlate clinically. Abnormal distention of the common bile duct measuring up to 12 mm. Depending on clinical status this may indicate presence of the distal common duct stone which couldn't be adequately detected by MR cholangiogram. Incidental mode is made of moderate fatty infiltration throughout the liver. Mild splenomegaly. 05/22/18 05/22/18 05/22/18 16:50 16:50 16:50 WBC 7.7 RBC 4.18 L Hgb 13.8 Hct 41.7 MCV 99.7 MCH 33.0 MCHC 33.1 RDW 14.9 H Plt Count 121 L Neut % (Auto) 90.2 H Lymph % (Auto) 7.9 L [place] % (Auto) 1.3 L Eos % (Auto) 0.5 L Baso % (Auto) 0.1 Neut # (Auto) 6900 H PT 15.2 H INR 1.4 H APTT 28 Sodium 147 H Potassium 3.4 Chloride 102 Carbon Dioxide 26 BUN 41 H Creatinine 1.10 Estimated GFR > 60.0 BUN/Creatinine Ratio 37.3 H Glucose 124 H Lactate Calcium 9.2 Total Bilirubin 2.9 H AST 60 H ALT 102 H Alkaline Phosphatase 77 Total Creatine Kinase 150 CK-MB (CK-2) 1.90 CK-MB (CK-2) Rel Index 1.3 L Troponin I 0.048 H B-Natriuretic Peptide Total Protein 7.3 Albumin 4.3 Globulin 3.0 Albumin/Globulin Ratio 1.4 Procalcitonin Urine Color Urine Appearance Urine pH Ur Specific [place] Urine Protein Urine Glucose (UA) Urine Ketones Urine Occult Blood Urine Nitrate Urine Bilirubin Urine Ictotest Urine Urobilinogen Ur Leukocyte Esterase Urine RBC Urine WBC Ur Squamous Epith Cells Amorphous Sediment Urine Bacteria Hyaline Casts Urine Mucus Ur Culture Indicated? Micro UA Comment Nasal Screen MRSA (PCR) A. baumannii (PCR) Adelina albicans (PCR) C. glabrata (PCR) C. krusei (PCR) C. parapsilosis (PCR) C. tropicalis (PCR) Enterobacteriac sp PCR E. cloacae complex PCR Enterococcus sp PCR E. coli (PCR) H. influenzae (PCR) Klebsiella oxytoca PCR Klebsiella pneumoniae List. monocytogenes PCR N. meningitidis (PCR) Proteus species (PCR) Serratia marcescens PCR Staphylococcus sp PCR Staph aureus (PCR) mecA-Methicil Res Gene Streptococcus sp PCR Group A Strep (PCR) Strep agalactiae (PCR) Strep pneumoniae (PCR) P. aeruginosa (PCR) Wilmer/B-Vanco Res Genes KPC-Carbap Res Gene PCR 05/22/18 05/22/18 05/22/18 16:50 16:50 17:34 WBC RBC Hgb Hct MCV MCH MCHC RDW Plt Count Neut % (Auto) Lymph % (Auto) [place] % (Auto) Eos % (Auto) Baso % (Auto) Neut # (Auto) PT INR APTT Sodium Potassium Chloride Carbon Dioxide BUN Creatinine Estimated GFR BUN/Creatinine Ratio Glucose Lactate Calcium Total Bilirubin AST ALT Alkaline Phosphatase Total Creatine Kinase CK-MB (CK-2) CK-MB (CK-2) Rel Index Troponin I B-Natriuretic Peptide 617.0 H Total Protein Albumin Globulin Albumin/Globulin Ratio Procalcitonin 10.97 H Urine Color Urine Appearance Urine pH Ur Specific [place] Urine Protein Urine Glucose (UA) Urine Ketones Urine Occult Blood Urine Nitrate Urine Bilirubin Urine Ictotest Urine Urobilinogen Ur Leukocyte Esterase Urine RBC Urine WBC Ur Squamous Epith Cells Amorphous Sediment Urine Bacteria Hyaline Casts Urine Mucus Ur Culture Indicated? Micro UA Comment Nasal Screen MRSA (PCR) A. baumannii (PCR) Not detected Adelina albicans (PCR) Not detected C. glabrata (PCR) Not detected C. krusei (PCR) Not detected C. parapsilosis (PCR) Not detected C. tropicalis (PCR) Not detected Enterobacteriac sp PCR Not detected E. cloacae complex PCR Not detected Enterococcus sp PCR Not detected E. coli (PCR) Detected H H. influenzae (PCR) Not detected Klebsiella oxytoca PCR Not detected Klebsiella pneumoniae Not detected List. monocytogenes PCR Not detected N. meningitidis (PCR) Not detected Proteus species (PCR) Not detected Serratia marcescens PCR Not detected Staphylococcus sp PCR Not detected Staph aureus (PCR) Not detected mecA-Methicil Res Gene Not Reportable Streptococcus sp PCR Not detected Group A Strep (PCR) Not detected Strep agalactiae (PCR) Not detected Strep pneumoniae (PCR) Not detected P. aeruginosa (PCR) Not detected Wilmer/B-Vanco Res Genes Not Reportable KPC-Carbap Res Gene PCR Not detected 05/22/18 05/22/18 05/22/18 17:42 17:50 19:15 WBC RBC Hgb Hct MCV MCH MCHC RDW Plt Count Neut % (Auto) Lymph % (Auto) [place] % (Auto) Eos % (Auto) Baso % (Auto) Neut # (Auto) PT INR APTT Sodium Potassium Chloride Carbon Dioxide BUN Creatinine Estimated GFR BUN/Creatinine Ratio Glucose Lactate 4.6 H Calcium Total Bilirubin AST ALT Alkaline Phosphatase Total Creatine Kinase CK-MB (CK-2) CK-MB (CK-2) Rel Index Troponin I B-Natriuretic Peptide Total Protein Albumin Globulin Albumin/Globulin Ratio Procalcitonin Urine Color Yellow Urine Appearance Clear Urine pH 5.0 Ur Specific [place] 1.025 Urine Protein 1+ H Urine Glucose (UA) Negative Urine Ketones Trace H Urine Occult Blood Trace-intact Urine Nitrate Negative Urine Bilirubin 1+ H Urine Ictotest Negative Urine Urobilinogen 1.0 Ur Leukocyte Esterase Trace H Urine RBC 0-1/hpf Urine WBC 1-5/hpf Ur Squamous Epith Cells 1-5 /hpf Amorphous Sediment 2+ Urine Bacteria Few (2-10) H Hyaline Casts 0-1/lpf Urine Mucus 2+ H Ur Culture Indicated? Specimen cultured Micro UA Comment Not Reportable Nasal Screen MRSA (PCR) Negative for mrsa A. baumannii (PCR) Adelina albicans (PCR) C. glabrata (PCR) C. krusei (PCR) C. parapsilosis (PCR) C. tropicalis (PCR) Enterobacteriac sp PCR E. cloacae complex PCR Enterococcus sp PCR E. coli (PCR) H. influenzae (PCR) Klebsiella oxytoca PCR Klebsiella pneumoniae List. monocytogenes PCR N. meningitidis (PCR) Proteus species (PCR) Serratia marcescens PCR Staphylococcus sp PCR Staph aureus (PCR) mecA-Methicil Res Gene Streptococcus sp PCR Group A Strep (PCR) Strep agalactiae (PCR) Strep pneumoniae (PCR) P. aeruginosa (PCR) Wilmer/B-Vanco Res Genes KPC-Carbap Res Gene PCR 05/22/18 05/23/18 05/23/18 22:10 04:43 04:43 WBC 7.7 RBC 3.48 L Hgb 11.4 L Hct 33.8 L MCV 97.2 MCH 32.9 MCHC 33.8 RDW 14.3 Plt Count 82 L Neut % (Auto) 86.9 H Lymph % (Auto) 6.7 L [place] % (Auto) 5.8 Eos % (Auto) 0.4 L Baso % (Auto) 0.2 Neut # (Auto) 6700 H PT INR APTT Sodium 141 Potassium 3.1 L Chloride 108 H Carbon Dioxide 24 BUN 27 H Creatinine 0.90 Estimated GFR > 60.0 BUN/Creatinine Ratio 30.0 H Glucose 142 H Lactate 1.4 Calcium 7.8 L Total Bilirubin 2.3 H AST 32 ALT 67 Alkaline Phosphatase 57 Total Creatine Kinase CK-MB (CK-2) CK-MB (CK-2) Rel Index Troponin I 0.054 H B-Natriuretic Peptide 459.0 H Total Protein 5.6 L Albumin 3.1 L Globulin 2.5 Albumin/Globulin Ratio 1.2 Procalcitonin Urine Color Urine Appearance Urine pH Ur Specific [place] Urine Protein Urine Glucose (UA) Urine Ketones Urine Occult Blood Urine Nitrate Urine Bilirubin Urine Ictotest Urine Urobilinogen Ur Leukocyte Esterase Urine RBC Urine WBC Ur Squamous Epith Cells Amorphous Sediment Urine Bacteria Hyaline Casts Urine Mucus Ur Culture Indicated? Micro UA Comment Nasal Screen MRSA (PCR) A. baumannii (PCR) Adelina albicans (PCR) C. glabrata (PCR) C. krusei (PCR) C. parapsilosis (PCR) C. tropicalis (PCR) Enterobacteriac sp PCR E. cloacae complex PCR Enterococcus sp PCR E. coli (PCR) H. influenzae (PCR) Klebsiella oxytoca PCR Klebsiella pneumoniae List. monocytogenes PCR N. meningitidis (PCR) Proteus species (PCR) Serratia marcescens PCR Staphylococcus sp PCR Staph aureus (PCR) mecA-Methicil Res Gene Streptococcus sp PCR Group A Strep (PCR) Strep agalactiae (PCR) Strep pneumoniae (PCR) P. aeruginosa (PCR) Wilmer/B-Vanco Res Genes KPC-Carbap Res Gene PCR Assessment & Plan (1) Cholelithiasis and acute cholecystitis with obstruction: Problem details: Patient has what looks like an impacted CBD stone. He does not have pain. I suspect this is chronic cholecystitis. Patient would benefit from GI consultation for ? ERCP, may need a cholecystomy tube and ultimately a cholecystectomy. Plan to transfer to [facility] for GI consult/Cholecystomy tube placement Current visit: Yes Status: Acute (2) Bacteremia due to Escherichia coli: Problem details: Will continue ceftriaxone, d/c Azithyromycin Current visit: Yes Status: Acute (3) Hypernatremia: Problem details: Likely secondary to dehydration Continue IV hydration Current visit: Yes Status: Acute (4) Severe sepsis: Problem details: Patient has had blood cultures drawn, is currently receiving 30 Cc/kg of IVF, Has been started on broad spectrum antibiotics. Will recheck lactate again Repeat Lactate improved Current visit: Yes Status: Acute (5) Hypokalemia due to loss of potassium: Current visit: Yes Status: Acute (6) Hypokalemia: Problem details: Will replace potassium in IVF Current visit: Yes Status: Acute Quality VTE Deep Vein Thrombosis/Pulmonary Embolism Present on Admission: No
[2018-05-23] MEDS: KCL 20 MEQ IN NS 1,000 ML 84 MEQ IV (11:53)
--- NOTE | 2018-05-23 12:15 | PC.NURSE ---
Addendum entered by Shanna Marinelli R.N. 05/23/18 16:05: 1600 - Ambulance crew arrived to transfer patient to [facility]. Day shift nurse Meaghan states that all discharge paperwork has been done and report has been given to receiving nurse. Discharge packet given to ambulance crew and questions answered. Patient left building with all belongings in good condition. Original Note: Addendum entered by Meaghan Wesley R.N. 05/23/18 13:59: Patients wallet, watch, clothing and shoes given to patients friend Edil to take home, per patients request. Original Note: Pt alert, oriented, c/o pain to back and shoulders,states its probably from my fall. Denies abdominal pain and nausea. Given tylenol for pain and fever of 99.7 at 0840. Abdominal ulttrasound complete and Dr Zambrano aware of results, pt remains NPO. Pt bathed and repostioned to left side. Pt able to reposition independently in bed, alarm on.
--- NOTE | 2018-05-23 12:48 | CM.DANOTE ---
DCP: Case received, EMR reviewed. Unable to meet with patient, was having ultra-sound, and bath. DCP template completed with information currently available. Patient is an 82 year old male who admitted yesterday evening to the care of the hospitalist team. PCP: Dr. Jaclyn Palencia. Payer: confirmed: Medicare. Patient came to hospital secondary to a ground level fall while assisting his , who has dementia. Patient also had symptoms of weakness, as well as tremors. Patient carries diagnosis of Sepsis, and also, Cholecystitis. Patient also has elevated troponin levels, is a diabetic as well.Lives at home with daughter, and . Unable to speak to patient, but did attempt to reach out to daughter, Liza, and left a message for her to call back. P: Patient is to be transfered to [facility], due to condition, and multiple co-morbidities. DCP here to offer any support during process if needed. Bushra Agustin RN/Clamp Jig Assembler
--- NOTE | 2018-05-23 12:59 | CM.DPC ---
DCP Cont: Checked in with hospitalist, Dr. Zambrano. Stated that they are waiting for availability of a bed at [facility]. Patient is in need of a stent, due to significance of Gall stone. P: DCP continue to assess and help with any resources needed. Bushra Agustin RN/Administrative Professional
== END 2018-05-23 16:07 | disposition short-term general hospital (02) | DRG 872 ==
LOC: ED 18:16 → AC 18:30 → ICU 19:09
PROVIDERS: Admitting Provider Internal Medicine; Emergency Provider Emergency Medicine; PCP Internal Medicine; Visit Provider Internal Medicine
DX: A41.51 Sepsis due to Escherichia coli [E. coli] (principal); E87.0 Hyperosmolality and hypernatremia; K80.01 Calculus of gallbladder with acute cholecystitis with obstruction; E86.0 Dehydration; R07.9 Chest pain, unspecified; E11.9 Type 2 diabetes mellitus without complications; K21.9 Gastro-esophageal reflux disease without esophagitis; Z86.711 Personal history of pulmonary embolism; Z79.01 Long term (current) use of anticoagulants; R60.0 Localized edema; Z79.84 Long term (current) use of oral hypoglycemic drugs
CPT/HCPCS: 36415; 70450; 71045; 71275; 72125; 76700; 80053; 81001; 82550; 82553; 82962; 83605; 83880; 84145; 84484; 85025; 85610; 85730; 87040; 87086; 87150; 87186; 87205; 87797; 93005; 96360; 99285; J0696; J1650; J1956

== ENCOUNTER → 2019-02-01 07:03 | Outpatient (CLI) | payer MEDICARE, SELFPAY ==
[2018-05-22 21:11] VITALS: BMI 30.2
[2019-02-01 09:25] LABS: Blood Urea Nitrogen 27 mg/dL (9-20); Calcium 9.2 mg/dL (8.4-10.2); Carbon Dioxide 26 mmol/L (22-32); Chloride 105 mmol/L (98-107); Cholesterol 134 mg/dL (140-199); Estimated Glomerular Filt Rate > 60.0 mL/min (>60); Glucose 149 mg/dL (80-110); HDL Cholesterol 46 mg/dL (40-60); HEMOLYSIS < 15 (0-50); LDL Cholesterol Calculated 28 mg/dL (<100); Potassium 3.9 mmol/L (3.4-5.1); Sodium 144 mmol/L (137-145); Triglycerides 300 mg/dL (35-150)
== END ==
PROVIDERS: PCP Internal Medicine; Visit Provider Internal Medicine
DX: I10 Essential (primary) hypertension (principal); E78.5 Hyperlipidemia, unspecified; E11.9 Type 2 diabetes mellitus without complications
CPT/HCPCS: 36415; 80048; 80061

== ENCOUNTER → 2019-06-22 14:37 | Outpatient (ROUT) | payer MEDICARE, SELFPAY ==
[2018-05-22 21:11] VITALS: BMI 30.2
[2019-06-22 14:56] LABS: BUN Creatinine Ratio 27.5 (6-22); Blood Urea Nitrogen 22 mg/dL (9-20); Calcium 9.5 mg/dL (8.4-10.2); Carbon Dioxide 25 mmol/L (22-32); Chloride 103 mmol/L (98-107); Cholesterol 119 mg/dL (140-199); Estimated Glomerular Filt Rate > 60.0 mL/min (>60); Glucose 129 mg/dL (80-110); HDL Cholesterol 41 mg/dL (40-60); HEMOLYSIS < 15 (0-50); LDL Cholesterol Calculated 27 mg/dL (<100); Potassium 4.1 mmol/L (3.4-5.1); Sodium 142 mmol/L (137-145); Triglycerides 253 mg/dL (35-150)
== END ==
PROVIDERS: PCP Internal Medicine; Visit Provider Internal Medicine
DX: I10 Essential (primary) hypertension (principal); E78.5 Hyperlipidemia, unspecified; M10.9 Gout, unspecified
CPT/HCPCS: 80048; 80061; 84550

== ENCOUNTER → 2019-06-30 06:44 | Outpatient (CLI) | payer MEDICARE, SELFPAY ==
[2018-05-22 21:11] VITALS: BMI 30.2
--- NOTE | 2019-06-30 | DI.ECHO.S_ITS ---
[facility] +---------+ [facility] +---------+ : : [address] [place] [address] : : : : [id number] : : : : Phone: [phone]---------+ Echocardiogram Report + + :Name: GUSTABO CLAUDIO Study Date: 06/30/2019 Height: 76 in : :[facility] Weight: 256 lb : : Gender: Male BSA: 2.5 m2 : :: 1935 Age: 83 yrs BP: 160/88 mmHg: :Reason For Study: Dyspnea : : Performed By: Alicia Hernandez : :Referring: MANN XIAO : + + Interpretation Summary Patient was in sinus bradycardia at the beginning of this study with HR of 49 bpm with abrupt increase in heart rate to 80s. Please correlate clinically and obtain heart monitor if indicated. The left ventricular ejection fraction is normal. There are no focal wall motion abnormalities. The right ventricle grossly appears normal in size with probable normal systolic function. Pulmonary artery pressures cannot be estimated because of the lack of a measurable TR jet velocity. The inferior vena cava was not visualized. No hemodynamically significant valvular abnormalities. No prior echo for comparison. Procedure: A two-dimensional transthoracic echocardiogram with color flow and Doppler was performed. There is no prior echocardiogram noted for this patient. The study quality was technically adequate. The subcostal views were difficult to obtain and are suboptimal in quality. The patient was in a bradycardic rhythm during the exam. Left Ventricle: Left ventricular wall thickness is mildly increased. The left ventricle is normal in size. The ejection fraction is estimated to be 55- 60%. The left ventricular ejection fraction is normal. There are no focal wall motion abnormalities. Diastolic function could not be accurately assessed due to contradictory data. Right Ventricle: The right ventricle grossly appears normal in size with probable normal systolic function. Atria: The left atrium is moderately dilated. Right atrial size is normal. There is no Doppler evidence for an interatrial shunt. Mitral Valve: The mitral valve is grossly normal. There is mild mitral regurgitation. Aortic Valve: The aortic valve is trileaflet. The aortic valve opens well. There is discrete nodular thickening of the non- coronary cusp. There is no aortic valve stenosis. There is mild aortic regurgitation. Tricuspid Valve: The tricuspid valve leaflets are thin and pliable. There is mild tricuspid regurgitation. Pulmonary artery pressures cannot be estimated because of the lack of a measurable TR jet velocity. Pulmonic Valve: The pulmonic valve is normal in structure and function. There is trace pulmonic regurgitation. Great Vessels: The aortic root is moderately dilated. The ascending aorta is normal in size. The aortic arch is mildly enlarged. The inferior vena cava was not visualized. Pericardium/ Pleura There is no pericardial effusion. There is no pleural effusion. MMode/2D Measurements & Calculations LVIDd: 5.9 cm Ao root diam: 4.6 cm LVIDs: 4.1 cm Aortic Jxn: 3.1 cm FS: 31.2 % asc Aorta Diam: 3.7 cm EPSS: 0.51 cm Ao Arch Diam (Prox Trans): 3.4 cm IVSd: 1.2 cm LVPWd: 1.1 cm LV white. diameter/BSA (cm/m^2): 2.4 LV sys. diameter/BSA (cm/m^2): 1.7 LA dimension: 5.6 cm RA long axis: 5.9 cm LA A2 area: 27.8 cm2 RA area: 23.9 cm2 LA A4 area: 23.6 cm2 RA vol: 82.3 ml LA length (vol): 5.7 cm RA : 33.4 ml/m2 LA vol: 97.2 ml RVDd major: 5.4 cm LA vol index: 39.5 ml/m2 RVD1 (basal): 4.0 cm LVAd ap4: 29.8 cm2 RVD2 (mid): 3.2 cm LVAs ap4: 19.6 cm2 LVLs ap4: 7.1 cm LVAd ap2: 29.0 cm2 LVLd ap2: 8.3 cm Doppler Measurements & Calculations Ao V2 max: 123.8 cm/sec MV E max andrey: 91.6 cm/sec Ao V2 mean: 86.6 cm/sec MV A max andrey: 74.0 cm/sec Ao max P.1 mmHg MV E/A: 1.2 Ao mean P.4 mmHg Med Peak E' Andrey: 4.3 cm/sec Ao V2 VTI: 20.7 cm E/E' med: 21.2 Lat Peak E' Andrey: 9.9 cm/sec E/E' lat: 9.2 E/e' average: 15.2 MV dec time: 0.25 sec MV P1/2t: 75.1 msec TR max andrey: 300.8 cm/sec MV P1/2t max andrey: 91.2 cm/sec TR max P.2 mmHg MVA(P1/2t): 2.9 cm2 PA V2 max: 62.5 cm/sec PA V2 mean: 41.4 cm/sec PA mean P.78 mmHg PA Accel Time: 0.10 sec Electronically signed by: Ming Hopkins M.D. on Reading Physician:06/30/2019 08:41 AM
== END ==
PROVIDERS: PCP Internal Medicine; Visit Provider Internal Medicine
DX: I08.3 Combined rheumatic disorders of mitral, aortic and tricuspid valves (principal); R06.09 Other forms of dyspnea
CPT/HCPCS: 93306

== ENCOUNTER → 2020-07-29 18:29 | Outpatient (ROUT) | payer MEDICARE, SELFPAY ==
[2018-05-22 21:11] VITALS: BMI 30.2
[2020-07-29 18:59] LABS: Add Manual Diff / Slide Review NO; Basophils Absolute Auto 100 /uL (0-100); Basophils Percent Auto 0.9 % (0-2); Eosinophils Absolute Auto 100 /uL (0-450); Eosinophils Percent Auto 1.4 % (2-4); Hematocrit 40.8 % (41-53); Hemoglobin 13.4 g/dL (13.5-17.5); Lymphocytes Absolute Auto 1400 /uL (1100-4500); Lymphocytes Percent Auto 22.6 % (25-40); Mean Corpuscular HGB Conc 32.8 % (30-36); Mean Corpuscular Hemoglobin 32.2 PG (26-34); Mean Corpuscular Volume 98.2 fL (80-100); Monocytes Absolute Auto 400 /uL (0-900); Monocytes Percent Auto 6.8 % (3-14); Neutrophils Absolute Auto 4300 /uL (1500-7000); Neutrophils Percent Auto 68.3 % (50-75); Platelet Count 158 X10^3/uL (150-400); Red Blood Cell Count 4.16 X10^6/uL (4.5-5.9); Red Cell Distribution Width 14.3 % (11.6-14.8); White Blood Cell Count 6.4 X10^3/uL (4.5-11.0)
[2020-07-29 19:15] LABS: Alanine Aminotransferase 29 IU/L (<50); Albumin Globulin Ratio 1.4 (1.0-2.8); Alkaline Phosphatase 62 U/L (38-126); Aspartate Aminotransferase 36 IU/L (17-59); BUN Creatinine Ratio 25.7 (6-22); Bilirubin Total 1.1 mg/dL (0.2-1.3); Blood Urea Nitrogen 26 mg/dL (9-20); Calcium 9.4 mg/dL (8.4-10.2); Carbon Dioxide 29 mmol/L (22-32); Chloride 102 mmol/L (98-107); Cholesterol 128 mg/dL (140-199); Estimated Glomerular Filt Rate > 60.0 mL/min (>60); Globulin 2.9 g/dL (1.7-4.1); Glucose 143 mg/dL (80-110); HDL Cholesterol 41 mg/dL (40-60); HEMOLYSIS < 15 (0-50); LDL Cholesterol Calculated 32 mg/dL (<100); Potassium 3.8 mmol/L (3.4-5.1); Sodium 138 mmol/L (137-145); Total Protein 6.9 g/dL (6.3-8.2); Triglycerides 276 mg/dL (35-150)
[2020-07-29 19:25] LABS: Hemoglobin A1C% w Est Avg Glu 8.5 % (4.0-6.0)
[2020-07-31 12:19] LABS: HEMOLYSIS < 15 (0-50); Iron 60 ug/dL (49-181)
[2020-07-31 12:30] LABS: Percent Iron Saturation 16 % (20-50); Total Iron Binding Capacity 387 ug/dL (261-462); Transferrin 283 mg/dL (206-381)
[2020-07-31 12:56] LABS: Ferritin 70 ng/mL (18-464)
[2020-07-31 13:10] LABS: Vitamin B12 319 pg/mL (239-931)
== END ==
PROVIDERS: PCP Internal Medicine; Visit Provider Physician Assistant
DX: E11.9 Type 2 diabetes mellitus without complications (principal); E78.2 Mixed hyperlipidemia; I10 Essential (primary) hypertension
CPT/HCPCS: 80053; 80061; 82607; 82728; 83036; 83540; 83550; 85025

== ENCOUNTER → 2020-09-19 15:57 | Outpatient (CLI) | payer MEDICARE, SELFPAY ==
[2018-05-22 21:11] VITALS: BMI 30.2
--- NOTE | 2020-09-19 15:59 | DI.ECHO.S_ITS ---
[facility]---------+ [facility] +---------+ : : [address] : [address] [address] : : : : [id number] : : : : Phone: [phone] : : [phone]---------+ Echocardiogram Report + + :Name: GUSTABO CLAUDIO Study Date: 09/19/2020 Height: 76 in : :[facility] ReadingLocation: Weight: 252 lb : : Gender: Male BSA: 2.4 m2 : :: 1935 Age: 85 yrs BP: 170/92 mmHg: :Reason For Study: SHORTNESS OF BREATH : :Ordering Physician: STEPHANIE, : :JULIA Performed By: Cintia Celestin : :Referring: JULIA BROWN : + + Interpretation Summary 1) Mildly increased left ventricular thickness (concentric) with normal size and low normal systolic function (EF 50-55%). 2) Mildly enlaged right ventricle with low normal function. 3) No significant valvular abnormalities. 4) Pulmonary artery pressures cannot be estimated because of the lack of a measurable TR jet velocity but the IVC suggests a CVP of around 3 mmHg. 5) Severe hypertension present during the study (BP 170/92mHg). 6) Compared to the Echo done 06/30/2019, LVEF has decreased from normal to low-normal on this study. Procedure: A two-dimensional transthoracic echocardiogram with color flow and Doppler was performed. The study quality was technically adequate. Comparison is made with the echocardiogram of 06/30/2019. The patient was in sinus rhythm with heart rates between 53-98 bpm during the exam. Left Ventricle: The left ventricle is normal in size. There is mild concentric left ventricular hypertrophy. The ejection fraction is estimated to be 50-55%. There are no obvious focal wall motion abnormalities noted but poor endocardial definition reduces the sensitivity for the detection of such. Right Ventricle: The right ventricle is mildly dilated. Right ventricular systolic function is at the lower limits of normal. Atria: The left atrium is mildly dilated. Right atrial size is normal. There is no Doppler evidence for an interatrial shunt. Mitral Valve: The mitral valve leaflets appear mildly thickened, but open well. There is mild mitral regurgitation. Aortic Valve: There is discrete nodular thickening of the non- coronary cusp. The aortic valve is trileaflet. The aortic valve opens well. There is no aortic valve stenosis. There is mild aortic regurgitation. Tricuspid Valve: The tricuspid valve is normal in structure and function. There is mild tricuspid regurgitation. Pulmonary artery pressures cannot be estimated because of the lack of a measurable TR jet velocity but the IVC suggests a CVP of around 3 mmHg. Pulmonic Valve: The pulmonic valve leaflets are thin and pliable; valve motion is normal. There is mild pulmonic regurgitation. Great Vessels: The aortic root is mildly dilated. The ascending aorta is mildly enlarged. The IVC is of normal diameter and collapses greater than 50% with a sniff. This suggests a low right atrial pressure of 3 mm Hg. Pericardium/ Pleura There is no pericardial effusion. There is no pleural effusion. MMode/2D Measurements & Calculations LVIDd: 4.7 cm LVOT diam: 2.2 cm LVIDs: 2.9 cm Ao root diam: 4.3 cm FS: 38.6 % asc Aorta Diam: 3.7 cm EPSS: 1.4 cm Ao Arch Diam (Prox Trans): 2.9 cm IVSd: 1.2 cm LVPWd: 1.1 cm LV white. diameter/BSA (cm/m^2): 1.9 LV sys. diameter/BSA (cm/m^2): 1.2 LA A2 area: 25.4 cm2 RA long axis: 5.3 cm LA A4 area: 25.0 cm2 RA area: 20.1 cm2 LA length (vol): 5.7 cm RA vol: 64.3 ml LA vol: 93.9 ml RA : 26.3 ml/m2 LA vol index: 38.4 ml/m2 IVC diam: 1.3 cm RVD1 (basal): 4.2 cm TAPSE: 1.9 cm Doppler Measurements & Calculations Ao V2 max: 84.4 cm/sec LVOT Max Andrey: 67.0 cm/sec Ao V2 mean: 65.9 cm/sec LV V1 max P.8 mmHg Ao max P.8 mmHg LV V1 VTI: 11.0 cm Ao mean P.8 mmHg ENEDELIA(I,D): 3.5 cm2 Ao V2 VTI: 12.0 cm ENEDELIA(V,D): 3.0 cm2 sev ratio: 0.92 ENEDELIA indexed to BSA (cm^2/m^2): 1.4 MV E max andrey: 49.5 cm/sec PA V2 max: 59.8 cm/sec MV A max andrey: 92.4 cm/sec PA V2 mean: 41.3 cm/sec MV E/A: 0.54 PA mean P.76 mmHg Med Peak E' Andrey: 3.8 cm/sec JODI pr(Accel): 32.8 mmHg E/E' med: 13.1 Lat Peak E' Andrey: 5.4 cm/sec E/E' lat: 9.1 E/e' average: 11.1 MV dec time: 0.37 sec SV(LVOT): 42.1 ml Reading Physician:06:03 PM
== END ==
PROVIDERS: PCP Internal Medicine; Referring Provider Physician Assistant; Visit Provider Physician Assistant
DX: I08.3 Combined rheumatic disorders of mitral, aortic and tricuspid valves (principal); I77.810 Thoracic aortic ectasia; R06.02 Shortness of breath; R03.0 Elevated blood-pressure reading, without diagnosis of hypertension
CPT/HCPCS: 93306

== ENCOUNTER → 2020-10-14 09:39 | Outpatient (CLI) | payer MEDICARE, SELFPAY ==
[2018-05-22 21:11] VITALS: BMI 30.2
== END ==
PROVIDERS: PCP Internal Medicine; Referring Provider Physician Assistant; Visit Provider Family Medicine
DX: E11.628 Type 2 diabetes mellitus with other skin complications (principal); E11.40 Type 2 diabetes mellitus with diabetic neuropathy, unspecified; S81.802A Unspecified open wound, left lower leg, initial encounter; S91.104A Unspecified open wound of right lesser toe(s) without damage to nail, initial encounter; S91.105A Unspecified open wound of left lesser toe(s) without damage to nail, initial encounter; L08.9 Local infection of the skin and subcutaneous tissue, unspecified; R06.02 Shortness of breath; R06.01 Orthopnea; R60.0 Localized edema; I25.10 Atherosclerotic heart disease of native coronary artery without angina pectoris
CPT/HCPCS: 97597; 99213; 99214

== ENCOUNTER → 2020-10-21 09:46 | Outpatient (CLI) | payer MEDICARE, SELFPAY ==
[2018-05-22 21:11] VITALS: BMI 30.2
== END ==
PROVIDERS: PCP Internal Medicine; Referring Provider Internal Medicine; Visit Provider Family Medicine
DX: E11.628 Type 2 diabetes mellitus with other skin complications (principal); S91.104A Unspecified open wound of right lesser toe(s) without damage to nail, initial encounter; S91.105A Unspecified open wound of left lesser toe(s) without damage to nail, initial encounter; S81.801A Unspecified open wound, right lower leg, initial encounter; S81.802A Unspecified open wound, left lower leg, initial encounter; E11.40 Type 2 diabetes mellitus with diabetic neuropathy, unspecified; R60.0 Localized edema; R06.01 Orthopnea; R06.02 Shortness of breath
CPT/HCPCS: 17250; 87070; 87075; 87077; 87186; 87205; 97597

== ENCOUNTER → 2020-10-28 09:32 | Outpatient (CLI) | payer MEDICARE, SELFPAY ==
[2018-05-22 21:11] VITALS: BMI 30.2
== END ==
PROVIDERS: PCP Internal Medicine; Referring Provider Internal Medicine; Visit Provider Family Medicine
DX: E11.621 Type 2 diabetes mellitus with foot ulcer (principal); L97.526 Non-pressure chronic ulcer of other part of left foot with bone involvement without evidence of necrosis; L08.9 Local infection of the skin and subcutaneous tissue, unspecified; E11.40 Type 2 diabetes mellitus with diabetic neuropathy, unspecified; M19.072 Primary osteoarthritis, left ankle and foot; R06.02 Shortness of breath; Z79.01 Long term (current) use of anticoagulants; E11.628 Type 2 diabetes mellitus with other skin complications; L97.511 Non-pressure chronic ulcer of other part of right foot limited to breakdown of skin; S81.801A Unspecified open wound, right lower leg, initial encounter; S81.802A Unspecified open wound, left lower leg, initial encounter; R06.01 Orthopnea; R60.0 Localized edema; B95.7 Other staphylococcus as the cause of diseases classified elsewhere
CPT/HCPCS: 36415; 71046; 73630; 80053; 81003; 81015; 83036; 84134; 85025; 85610; 85651; 86140; 97597; 99214

== ENCOUNTER → 2020-10-28 10:15 | Outpatient (CLI) | payer MEDICARE, SELFPAY ==
[2018-05-22 21:11] VITALS: BMI 30.2
--- NOTE | 2020-10-28 10:21 | DI.RAD.S_ITS ---
PROCEDURE: XR CHEST 2V INDICATIONS: RASH TECHNIQUE: 2 views of the chest were acquired. COMPARISON: [facility], CR, XR CHEST 1V, 05/22/2018, 16:59. FINDINGS: Surgical changes and devices: None. No pleural effusions or pneumothorax. Scattered subsegmental atelectasis and/or scarring. No focal consolidation. Mediastinum: Mediastinal contours are normal. Heart size is normal. Bones and chest wall: No suspicious bony abnormalities. Soft tissues appear unremarkable. IMPRESSION: Scattered subsegmental atelectasis and/or scarring. No focal consolidation. Dictated by: Td Oh M.D. on 10/28/2020 at 13:10 Approved by: Td Oh M.D. on 10/28/2020 at 13:11
--- NOTE | 2020-10-28 10:22 | DI.RAD.S_ITS ---
PROCEDURE: XR FOOT LT MIN 3V INDICATIONS: FOOT PAIN TECHNIQUE: 3 views of the foot were acquired. COMPARISON: None. FINDINGS: Bones: No fractures or dislocations. No suspicious bony lesions. Scattered degenerative subchondral sclerosis and spurring. Diffuse hindfoot and midfoot degenerative changes. Mild to moderate 1st MTP joint degeneration. Soft tissues: Scattered vascular calcifications. IMPRESSION: Diffuse degenerative changes. Dictated by: Td Oh M.D. on 10/28/2020 at 14:18 Approved by: Td Oh M.D. on 10/28/2020 at 14:19
[2020-10-28 10:55] LABS: Add Manual Diff / Slide Review NO; Basophils Absolute Auto 0 /uL (0-100); Basophils Percent Auto 0.5 % (0-2); Eosinophils Absolute Auto 100 /uL (0-450); Eosinophils Percent Auto 0.9 % (2-4); Hematocrit 40.9 % (41-53); Hemoglobin 13.5 g/dL (13.5-17.5); Lymphocytes Absolute Auto 1300 /uL (1100-4500); Lymphocytes Percent Auto 19.9 % (25-40); Mean Corpuscular Hemoglobin 32.4 PG (26-34); Mean Corpuscular Volume 98.4 fL (80-100); Monocytes Absolute Auto 500 /uL (0-900); Neutrophils Absolute Auto 4700 /uL (1500-7000); Neutrophils Percent Auto 71.7 % (50-75); Platelet Count 160 X10^3/uL (150-400); Red Blood Cell Count 4.16 X10^6/uL (4.5-5.9); Red Cell Distribution Width 14.2 % (11.6-14.8); White Blood Cell Count 6.5 X10^3/uL (4.5-11.0)
[2020-10-28 10:59] LABS: Appearance Urine UA CLEAR; Bilirubin Urine UA NEGATIVE (NEGATIVE); Color Urine UA YELLOW; Glucose Urine UA NEGATIVE (Negative); Ketones Urine UA NEGATIVE (NEGATIVE); Leukocyte Esterase Urine UA NEGATIVE (NEGATIVE); Nitrite Urine UA NEGATIVE (Negative); Occult Blood Urine UA 3+ (Negative); Protein Urine UA NEGATIVE (Negative); Specific Gravity Urine UA 1.025 (1.000-1.035); Urobilinogen Urine UA 0.2 E.U./dL (0.2); pH Urine UA 5.5 (4.5-8.0)
[2020-10-28 11:01] LABS: INR 1.6 (0.9-1.3); Prothrombin Time 18.3 SECONDS (10.1-12.7)
[2020-10-28 11:03] LABS: Bacteria Urine None Seen; WBC Urine None Seen (0-5/HPF)
[2020-10-28 11:04] LABS: Hemoglobin A1C% w Est Avg Glu 7.8 % (4.0-6.0)
[2020-10-28 11:05] LABS: RBC Urine 10-30/HPF (0-5/HPF)
[2020-10-28 11:15] LABS: Erythrocyte Sedimentation Rate 18 MM/HR (0-15)
[2020-10-28 11:20] LABS: Alanine Aminotransferase 22 IU/L (<50); Albumin 4.1 g/dL (3.5-5.0); Albumin Globulin Ratio 1.6 (1.0-2.8); Alkaline Phosphatase 59 U/L (38-126); Aspartate Aminotransferase 34 IU/L (17-59); BUN Creatinine Ratio 29.1 (6-22); Bilirubin Total 1.4 mg/dL (0.2-1.3); Blood Urea Nitrogen 30 mg/dL (9-20); C-Reactive Protein Quant 1.2 mg/dL (<1.0); Calcium 9.8 mg/dL (8.4-10.2); Carbon Dioxide 32 mmol/L (22-32); Chloride 102 mmol/L (98-107); Estimated Glomerular Filt Rate > 60.0 mL/min (>60); Globulin 2.6 g/dL (1.7-4.1); Glucose 172 mg/dL (80-110); HEMOLYSIS < 15 (0-50); Potassium 4.5 mmol/L (3.4-5.1); Sodium 138 mmol/L (137-145); Total Protein 6.7 g/dL (6.3-8.2)
[2020-10-28 11:25] LABS: Prealbumin 23.8 mg/dL (17.6-36.0)
== END ==
PROVIDERS: PCP Physician Assistant; Referring Provider Family Medicine; Visit Provider Family Medicine
DX: E11.621 Type 2 diabetes mellitus with foot ulcer (principal); L97.526 Non-pressure chronic ulcer of other part of left foot with bone involvement without evidence of necrosis; L08.9 Local infection of the skin and subcutaneous tissue, unspecified; E11.40 Type 2 diabetes mellitus with diabetic neuropathy, unspecified; M19.072 Primary osteoarthritis, left ankle and foot; R06.02 Shortness of breath; Z79.01 Long term (current) use of anticoagulants
CPT/HCPCS: 36415; 71046; 73630; 80053; 81003; 81015; 83036; 84134; 85025; 85610; 85651; 86140

== ENCOUNTER → 2020-11-04 09:46 | Outpatient (CLI) | payer MEDICARE, SELFPAY ==
[2018-05-22 21:11] VITALS: BMI 30.2
== END ==
PROVIDERS: PCP Physician Assistant; Referring Provider Physician Assistant; Visit Provider Family Medicine
DX: E11.621 Type 2 diabetes mellitus with foot ulcer (principal); E11.628 Type 2 diabetes mellitus with other skin complications; L97.521 Non-pressure chronic ulcer of other part of left foot limited to breakdown of skin; L08.9 Local infection of the skin and subcutaneous tissue, unspecified; S81.801A Unspecified open wound, right lower leg, initial encounter; S81.802A Unspecified open wound, left lower leg, initial encounter; E11.40 Type 2 diabetes mellitus with diabetic neuropathy, unspecified; R06.02 Shortness of breath; R06.01 Orthopnea; R60.0 Localized edema; B95.7 Other staphylococcus as the cause of diseases classified elsewhere; R31.21 Asymptomatic microscopic hematuria; Z79.01 Long term (current) use of anticoagulants
CPT/HCPCS: 11042; 97597; 99213

== ENCOUNTER → 2020-11-11 09:26 | Outpatient (CLI) | payer MEDICARE, SELFPAY ==
[2018-05-22 21:11] VITALS: BMI 30.2
== END ==
PROVIDERS: PCP Physician Assistant; Referring Provider Physician Assistant; Visit Provider Family Medicine
DX: E11.621 Type 2 diabetes mellitus with foot ulcer (principal); E11.622 Type 2 diabetes mellitus with other skin ulcer; L97.526 Non-pressure chronic ulcer of other part of left foot with bone involvement without evidence of necrosis; L97.811 Non-pressure chronic ulcer of other part of right lower leg limited to breakdown of skin; L97.511 Non-pressure chronic ulcer of other part of right foot limited to breakdown of skin; L97.521 Non-pressure chronic ulcer of other part of left foot limited to breakdown of skin; S81.801D Unspecified open wound, right lower leg, subsequent encounter; L08.9 Local infection of the skin and subcutaneous tissue, unspecified; R60.0 Localized edema; E11.40 Type 2 diabetes mellitus with diabetic neuropathy, unspecified
CPT/HCPCS: 11042; 87070; 87075; 87077; 87186; 87205; 97597; 99214

== ENCOUNTER 2020-11-19 21:52 | Inpatient (IN) | payer MEDICARE, SELFPAY ==
[2018-05-22 21:11] VITALS: BMI 30.2
[2020-11-19] VITALS (7 sets, daily range): BP systolic 122–143; BP diastolic 67–71; PULSE 56–107; RESP 25–29; TEMP 37.6; O2SAT 92–95; BMI 30.4
--- NOTE | 2020-11-19 22:12 | DI.RAD.S_ITS ---
PROCEDURE: XR CHEST 1V INDICATIONS: shortness of breath TECHNIQUE: One view of the chest was acquired. COMPARISON: [facility], CR, XR CHEST 1V, 05/22/2018, 16:59. FINDINGS: Surgical changes and devices: None. Lungs and pleura: Mild interstitial prominence in the lungs bilaterally. No pleural effusions or pneumothorax. Mediastinum: Mediastinal contours appear normal. Heart size is normal. Bones and chest wall: No suspicious bony lesions. Overlying soft tissues appear unremarkable. IMPRESSION: Mild interstitial prominence which could represent pulmonary edema or atypical pneumonia. Dictated by: Marisela Moreau MD, PhD on 11/20/2020 at 8:20 Approved by: Marisela Moreau MD, PhD on 11/20/2020 at 8:21
[2020-11-19 22:20] LABS: Add Manual Diff / Slide Review NO; Basophils Absolute Auto 100 /uL (0-100); Basophils Percent Auto 0.7 % (0-2); Eosinophils Absolute Auto 200 /uL (0-450); Eosinophils Percent Auto 2.3 % (2-4); Hematocrit 37.5 % (41-53); Hemoglobin 12.5 g/dL (13.5-17.5); Lymphocytes Absolute Auto 800 /uL (1100-4500); Lymphocytes Percent Auto 10.5 % (25-40); Mean Corpuscular HGB Conc 33.4 % (30-36); Mean Corpuscular Hemoglobin 32.6 PG (26-34); Mean Corpuscular Volume 97.7 fL (80-100); Monocytes Absolute Auto 700 /uL (0-900); Monocytes Percent Auto 9.4 % (3-14); Neutrophils Absolute Auto 5900 /uL (1500-7000); Neutrophils Percent Auto 77.1 % (50-75); Platelet Count 225 X10^3/uL (150-400); Red Blood Cell Count 3.84 X10^6/uL (4.5-5.9); Red Cell Distribution Width 13.9 % (11.6-14.8); White Blood Cell Count 7.6 X10^3/uL (4.5-11.0)
[2020-11-19 22:26] LABS: Alanine Aminotransferase 15 IU/L (<50); Albumin 3.6 g/dL (3.5-5.0); Albumin Globulin Ratio 1.2 (1.0-2.8); Alkaline Phosphatase 57 U/L (38-126); Aspartate Aminotransferase 26 IU/L (17-59); BUN Creatinine Ratio 21.9 (6-22); Bilirubin Total 1.3 mg/dL (0.2-1.3); Blood Urea Nitrogen 23 mg/dL (9-20); Carbon Dioxide 23 mmol/L (22-32); Chloride 106 mmol/L (98-107); Estimated Glomerular Filt Rate > 60.0 mL/min (>60); Glucose 186 mg/dL (80-110); HEMOLYSIS < 15 (0-50); Sodium 140 mmol/L (137-145); Total Protein 6.6 g/dL (6.3-8.2)
[2020-11-19 22:38] LABS: Creatine Kinase 119 U/L (55-170)
[2020-11-19 22:52] LABS: NT-proBNP (BNP-Adult 18+) 1150 pg/mL (<450)
[2020-11-19 22:54] LABS: CKMB % Relative Index 0.9 % (1.5-5.0); Creatine Kinase MB 1.13 ng/mL (<2.37)
[2020-11-20] VITALS (27 sets, daily range): BP systolic 109–174; BP diastolic 60–84; PULSE 51–110; RESP 16–35; TEMP 36.6–36.8; O2SAT 80–97; BMI 30.4
[2020-11-20 00:17] LABS: Reflexed Lactate in 2 Hours Y
[2020-11-20 00:49] LABS: Lactate 2HR (Lactic Acid Rflx) 1.1 mmol/L (0.7-2.1)
--- NOTE | 2020-11-20 01:19 | ED_ITS ---
HPI - SOB/Dyspnea General Chief Complaint: Shortness of Breath/Dyspnea Stated Complaint: Shortness of breath Time Seen by Provider: 11/19/20 22:25 Source: patient Mode of arrival: EMS Limitations: no limitations History of Present Illness HPI Narrative: 85-year-old male who presents with increasing shortness of breath over the last 3 days. He says that he is having more shortness of breath with exertion he denies any chest pain. He actually has oxygen concentrator at home that he has purchased a has not been ordered by a physician. He says he typically does not need it but over last 3 days he has felt extremely short of breath with exertion. He is on a diuretic medication because he has had lower extremity edema ongoing for a number of weeks. He actually had an echocardiogram in September 2020 showed an EF of 50-55%. He states that his legs are not any more swollen than normal. He denies fever or cough. He does have some erythema on his right leg and apparently a chronic wound on his his left to e which is followed by wound care. He denies any orthopnea. He does have a history of PEs and is on Coumadin. MD Complaint: shortness of breath Onset (ago): day(s) Context: occurred during exertion Severity: severe Relieving factors: oxygen and rest Exacerbating factors: exertion Related Data Home Medications Medication Instructions Recorded Confirmed doxazosin 4 mg PO HS #0 08/14/16 11/20/20 pantoprazole 40 mg PO QAM #0 08/14/16 11/20/20 acetaminophen 2 tab PO BID #0 07/07/17 11/20/20 Multi-Vitamins with Iron 1 tab PO DAILY 05/22/18 11/20/20 gabapentin 300 mg PO BEDTIME 05/22/18 11/20/20 Natural Eggshell Membrane 500 mg PO DAILY 11/20/20 11/20/20 doxycycline monohydrate 100 mg PO BID 11/20/20 11/20/20 furosemide 40 mg PO DAILY 11/20/20 11/20/20 gabapentin 600 mg PO DAILY 11/20/20 11/20/20 losartan 50 mg PO BID 11/20/20 11/20/20 pioglitazone 15 mg PO QAM 11/20/20 11/20/20 warfarin 5 mg PO QPM 11/20/20 11/20/20 Allergies Allergy/AdvReac Type Severity Reaction Status Date / Time Penicillins [PENICILLINS] Allergy Unknown Verified 11/19/20 22:00 Review of Systems Review of Systems ROS Unobtainable: All systems reviewed & are unremarkable except as noted in HPI and below Constitutional Constitutional: Denies chills, Denies fever(s), Denies lethargy and Denies weakness ENT Ears, Nose, Mouth, and Throat: Denies dizziness Cardiovascular Cardiovascular: Reports as per HPI, Denies chest pain, Denies syncope, Reports leg edema and Reports dyspnea on exertion Respiratory Respiratory: Reports as per HPI, Denies cough, Denies hemoptysis and Reports dyspnea on exertion Gastrointestinal Gastrointestinal: Denies abdominal pain, Denies constipation and Denies nausea Musculoskeletal Musculoskeletal: Denies myalgias and Denies joint swelling Integumentary/Breasts Skin/Breast: Denies pruritus, Denies erythema, Denies rash and Reports wounds Neurologic Neurologic: Denies dizziness, Denies syncope and Denies weakness Patient History Medical History (Updated 11/20/20 @ 06:25 by SHARMIN Ferraro) Bilateral lower extremity edema Colon cancer 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 Diabetes DVT (deep venous thrombosis) Emphysema lung GERD (gastroesophageal reflux disease) History of pulmonary embolus (PE) Tremor Venous stasis dermatitis Surgical History (Updated 11/20/20 @ 06:25 by SHARMIN Ferraro) History of arthroscopic knee surgery History of cholecystectomy Family History (Updated 11/20/20 @ 06:26 by SHARMIN Ferraro) Father Heart attack Mother Heart attack Brother Heart attack Sister Diabetes mellitus Social History household members: children Smoking Status: Former smoker alcohol intake: former Smoking Status: Former smoker alcohol intake frequency: holidays/special occasions only Substance Use Type: does not use Exam Initial Vital Signs Initial Vital Signs: Vital Signs Temperature 99.6 F 11/19/20 21:55 Pulse Rate 107 H 11/19/20 21:55 Respiratory Rate 28 H 11/19/20 21:55 Blood Pressure 122/71 11/19/20 21:55 Pulse Oximetry 93 11/19/20 21:55 GENERAL: Alert pleasant 85-year-old male and in no acute distress. HEENT: Head atraumatic,EOMI, pupils reactive, face symmetric, moist mucous membranes CARDIOVASCULAR: Regular rate and rhythm without murmurs, rubs or gallops. RESPIRATORY: Decreased breath sounds bilaterally ABDOMEN: Soft, nontender. Normoactive bowel sounds all 4 quadrants. No guarding or rebound. : No CVA tenderness EXTREMITIES: Normal range of motion, no clubbing.. Neurovascularly intact +2 lower extremity edema right hart has some mild erythema with a wound dressing on it. NEUROLOGICAL: Alert and oriented x4.Normal gait and speech. SKIN: Warm, dry, no laceration, no petechiae, no rashes or lesions. Course Orders Ordered: Acetaminophen (Acetaminophen 325 Mg Tablet) 650 mg PO Q4HR PRN PRN Reason: Fever/Mild Pain (1-3) Al Hydrox/Mg Hydrox/Simethicone (Mag Hydrox/Alum/Simeth 30 Ml Udc) 30 ml PO Q6HR PRN PRN Reason: Dyspepsia Albuterol (Albuterol Hfa Mdi 60 Puff/8 Gm Inhaler) 1 puff INH Q2H PRN PRN Reason: Shortness Of Breath Albuterol/Ipratropium (Albuterol/Ipratropium 3 Ml Ampul) 3 ml INH RTQ6HR [facility] Last Admin: 11/20/20 13:34 Dose: Not Given Documented by: Admin: 11/20/20 08:42 Dose: 3 ml Documented by: DRAGAN Aspirin (Aspirin Ec 81 Mg Tablet) 81 mg PO DAILY [facility] Last Admin: 11/20/20 08:30 Dose: 81 mg Documented by: SHAN Bisacodyl (Bisacodyl 10 Mg Supp) 10 mg HI DAILY PRN PRN Reason: Constipation Dextrose (Dextrose 50 % In Water 25 Gm/50 Ml Syringe) 25 gm IV PRN PRN; Protocol PRN Reason: Hypoglycemia Docusate Sodium (Docusate 100 Mg Capsule) 100 mg PO BID [facility] Last Admin: 11/20/20 08:30 Dose: 100 mg Documented by: SHAN Ceftriaxone Sodium/Dextrose (Rocephin) 2 gm in 50 mls @ 100 mls/hr IV Q24H [facility] Last Infusion: 11/20/20 09:00 Dose: 0 mls/hr Documented by: Admin: 11/20/20 08:26 Dose: 100 mls/hr Documented by: SHAN Azithromycin 500 mg/ Dextrose 250 mls @ 250 mls/hr IV Q24H [facility] Stop: 11/22/20 09:59 Last Admin: 11/20/20 09:22 Dose: 250 mls/hr Documented by: SHAN Insulin Aspart (Insulin Aspart 100 Unit/Ml Insuln Pen) 0 unit [facility]; Protocol Last Admin: 11/20/20 17:00 Dose: 4 unit Documented by: SKY Cosigned by: ABRAHAN Admin: 11/20/20 13:00 Dose: 2 unit Documented by: SHAN Cosigned by: SAPNA Admin: 11/20/20 08:48 Dose: 1 unit Documented by: SHAN Cosigned by: BELLE Naloxone HCl (Naloxone 0.4 Mg/Ml Vial) 0.2 mg IV Q2MIN PRN PRN Reason: Opiate Reversal Potassium Chloride (Potassium Chloride 20 Meq/15 Ml Udc) 40 meq PO TID [facility] Stop: 11/21/20 01:00 Last Admin: 11/20/20 14:12 Dose: 40 meq Documented by: Admin: 11/20/20 11:48 Dose: 40 meq Documented by: DINORA Warfarin Sodium (Warfarin 5 Mg Tablet) 5 mg PO DAILY@1700 [facility] Last Admin: 11/20/20 17:08 Dose: 5 mg Documented by: SKY Discontinued Medications Albuterol/Ipratropium (Albuterol/Ipratropium 3 Ml Ampul) 3 ml INH RTBID [facility] Furosemide (Furosemide 40 Mg/4 Ml Vial) 40 mg IV NOW ONE Stop: 11/20/20 01:35 Last Admin: 11/20/20 01:54 Dose: 40 mg Documented by: JENIFER Furosemide (Furosemide 20 Mg/2 Ml Vial) 40 mg IV NOW ONE Stop: 11/20/20 05:46 Last Admin: 11/20/20 08:55 Dose: Not Given Documented by: SHAN Furosemide (Furosemide 40 Mg/4 Ml Vial) 40 mg IV NOW ONE Stop: 11/20/20 08:57 Last Admin: 11/20/20 09:22 Dose: 40 mg Documented by: SHAN Ceftriaxone Sodium/Dextrose (Rocephin) 2 gm in 50 mls @ 100 mls/hr IV Q24H [facility] Last Admin: 11/20/20 08:35 Dose: Not Given Documented by: SHAN Azithromycin 500 mg/ Dextrose 250 mls @ 250 mls/hr IV Q24H [facility] Stop: 11/22/20 05:46 Last Admin: 11/20/20 08:34 Dose: Not Given Documented by: SHAN Potassium Chloride 40 meq/ (Sodium Chloride) 520 mls @ 130 mls/hr IV NOW ONE Stop: 11/20/20 09:44 Last Admin: 11/20/20 06:53 Dose: 130 mls/hr Documented by: ANA Cosigned by: SHANNAN Magnesium Sulfate (Magnesium Sulfate) 2 gm in 50 mls @ 150 mls/hr IV NOW ONE Stop: 11/20/20 06:04 Last Infusion: 11/20/20 07:52 Dose: 0 mls/hr Documented by: ANA Cosigned by: SAHN Admin: 11/20/20 06:08 Dose: 150 mls/hr Documented by: ANA Cosigned by: SHANNAN Metoclopramide HCl (Metoclopramide 10 Mg/2 Ml Inj) 5 mg IV Q6HR PRN PRN Reason: Nausea And Vomiting Potassium Chloride (Potassium Chloride 20 Meq Tab) 40 meq PO NOW ONE Stop: 11/20/20 05:46 Last Admin: 11/20/20 06:07 Dose: 40 meq Documented by: ANA Prednisone (Prednisone 20 Mg Tablet) 40 mg PO DAILY [facility] Stop: 11/20/20 09:00 Last Admin: 11/20/20 09:22 Dose: 40 mg Documented by: SHAN Tramadol HCl (Tramadol 50 Mg Tablet) 50 mg PO Q6H PRN PRN Reason: pain Vital Signs Vital signs: Vital Signs - 8 hr 11/19/20 21:55 11/19/20 21:59 11/19/20 22:00 Temperature 99.6 F Pulse Rate 107 H 102 H 101 H Respiratory Rate 28 H Blood Pressure 122/71 122/71 Pulse Oximetry 93 92 92 11/19/20 22:30 11/19/20 23:00 11/19/20 23:30 Temperature Pulse Rate 97 H 58 L 57 L Respiratory Rate 29 H 25 H 27 H Blood Pressure 143/67 H Pulse Oximetry 95 93 95 11/19/20 23:46 11/20/20 00:00 11/20/20 00:30 Temperature Pulse Rate 56 L 54 L 56 L Respiratory Rate 28 H 23 25 H Blood Pressure 143/67 H 139/64 Pulse Oximetry 95 93 93 11/20/20 00:31 11/20/20 01:00 11/20/20 01:01 Temperature Pulse Rate 56 L 52 L 52 L Respiratory Rate 25 H 22 23 Blood Pressure 135/60 140/63 Pulse Oximetry 94 94 94 11/20/20 01:30 11/20/20 01:31 11/20/20 02:00 Temperature Pulse Rate 56 L 58 L 90 Respiratory Rate 27 H 22 22 Blood Pressure 174/72 H Pulse Oximetry 95 95 92 11/20/20 02:01 11/20/20 02:30 11/20/20 02:31 Temperature Pulse Rate 89 65 110 H Respiratory Rate 20 20 35 H Blood Pressure 121/61 121/69 Pulse Oximetry 93 90 L 90 L 11/20/20 03:00 Temperature Pulse Rate 88 Respiratory Rate 16 Blood Pressure 137/84 Pulse Oximetry 89 L MDM - SOB/Dyspnea Lab Data Attestation: I reviewed the patient's lab results. Result diagrams: 11/20/20 06:40 11/20/20 15:55 Labs: Lab Results 11/19/20 11/19/20 11/19/20 Range/Units 21:50 21:50 22:10 WBC 7.6 (4.5-11.0) X10^3/uL RBC 3.84 L (4.5-5.9) X10^6/uL Hgb 12.5 L (13.5-17.5) g/dL Hct 37.5 L (41-53) % MCV 97.7 (80-100) fL MCH 32.6 (26-34) PG MCHC 33.4 (30-36) % RDW 13.9 (11.6-14.8) % Plt Count 225 (150-400) X10^3/uL Neut % (Auto) 77.1 H (50-75) % Lymph % (Auto) 10.5 L (25-40) % [place] % (Auto) 9.4 (3-14) % Eos % (Auto) 2.3 (2-4) % Baso % (Auto) 0.7 (0-2) % Neut # (Auto) 5900 (3876-4559) /uL Lymph # (Auto) 800 L (3259-1838) /uL [place] # (Auto) 700 (0-900) /uL Eos # (Auto) 200 (0-450) /uL Baso # (Auto) 100 (0-100) /uL PT 26.2 H (10.1-12.7) SECONDS INR 2.3 H (0.9-1.3) Sodium 140 (137-145) mmol/L Potassium 3.0 L (3.4-5.1) mmol/L Chloride 106 (98-107) mmol/L Carbon Dioxide 23 (22-32) mmol/L BUN 23 H (9-20) mg/dL Creatinine 1.05 (0.66-1.25) mg/dL Estimated GFR > 60.0 (>60) mL/min BUN/Creatinine Ratio 21.9 (6-22) Glucose 186 H (80-110) mg/dL Lactate (0.7-2.1) mmol/L Calcium 9.0 (8.4-10.2) mg/dL Magnesium (1.6-2.3) mg/dL Total Bilirubin 1.3 (0.2-1.3) mg/dL AST 26 (17-59) IU/L ALT 15 (<50) IU/L Alkaline Phosphatase 57 (38-126) U/L Total Creatine Kinase (55-170) U/L CK-MB (CK-2) (<2.37) ng/mL CK-MB (CK-2) Rel Index (1.5-5.0) % Troponin I (0.01-0.034) ng/mL NT-Pro-B Natriuret Pep (<450) pg/mL Total Protein 6.6 (6.3-8.2) g/dL Albumin 3.6 (3.5-5.0) g/dL Globulin 3.0 (1.7-4.1) g/dL Albumin/Globulin Ratio 1.2 (1.0-2.8) Procalcitonin (<0.5) ng/mL Urine Color Urine Appearance Urine pH (4.5-8.0) Ur Specific [place] (1.000-1.035) Urine Protein (Negative) Urine Glucose (UA) (Negative) g/dL Urine Ketones (NEGATIVE) Urine Occult Blood (Negative) Urine Nitrate (Negative) Urine Bilirubin (NEGATIVE) Urine Urobilinogen (0.2) E.U./dL Ur Leukocyte Esterase (NEGATIVE) Urine RBC (0-5/HPF) Urine WBC (0-5/HPF) Ur Squamous Epith Cells (0-5/HPF) Urine Bacteria (None) Ur Culture Indicated? 11/19/20 11/19/20 11/19/20 Range/Units 22:10 22:10 22:10 WBC (4.5-11.0) X10^3/uL RBC (4.5-5.9) X10^6/uL Hgb (13.5-17.5) g/dL Hct (41-53) % MCV (80-100) fL MCH (26-34) PG MCHC (30-36) % RDW (11.6-14.8) % Plt Count (150-400) X10^3/uL Neut % (Auto) (50-75) % Lymph % (Auto) (25-40) % [place] % (Auto) (3-14) % Eos % (Auto) (2-4) % Baso % (Auto) (0-2) % Neut # (Auto) (4060-8267) /uL Lymph # (Auto) (1578-1312) /uL [place] # (Auto) (0-900) /uL Eos # (Auto) (0-450) /uL Baso # (Auto) (0-100) /uL PT (10.1-12.7) SECONDS INR (0.9-1.3) Sodium (137-145) mmol/L Potassium (3.4-5.1) mmol/L Chloride (98-107) mmol/L Carbon Dioxide (22-32) mmol/L BUN (9-20) mg/dL Creatinine (0.66-1.25) mg/dL Estimated GFR (>60) mL/min BUN/Creatinine Ratio (6-22) Glucose (80-110) mg/dL Lactate 2.0 (0.7-2.1) mmol/L Calcium (8.4-10.2) mg/dL Magnesium 1.5 L (1.6-2.3) mg/dL Total Bilirubin (0.2-1.3) mg/dL AST (17-59) IU/L ALT (<50) IU/L Alkaline Phosphatase (38-126) U/L Total Creatine Kinase 119 (55-170) U/L CK-MB (CK-2) 1.13 (<2.37) ng/mL CK-MB (CK-2) Rel Index 0.9 L (1.5-5.0) % Troponin I 0.020 (0.01-0.034) ng/mL NT-Pro-B Natriuret Pep 1150 H (<450) pg/mL Total Protein (6.3-8.2) g/dL Albumin (3.5-5.0) g/dL Globulin (1.7-4.1) g/dL Albumin/Globulin Ratio (1.0-2.8) Procalcitonin 0.10 (<0.5) ng/mL Urine Color Urine Appearance Urine pH (4.5-8.0) Ur Specific [place] (1.000-1.035) Urine Protein (Negative) Urine Glucose (UA) (Negative) g/dL Urine Ketones (NEGATIVE) Urine Occult Blood (Negative) Urine Nitrate (Negative) Urine Bilirubin (NEGATIVE) Urine Urobilinogen (0.2) E.U./dL Ur Leukocyte Esterase (NEGATIVE) Urine RBC (0-5/HPF) Urine WBC (0-5/HPF) Ur Squamous Epith Cells (0-5/HPF) Urine Bacteria (None) Ur Culture Indicated? 11/20/20 11/20/20 Range/Units 00:30 03:15 WBC (4.5-11.0) X10^3/uL RBC (4.5-5.9) X10^6/uL Hgb (13.5-17.5) g/dL Hct (41-53) % MCV (80-100) fL MCH (26-34) PG MCHC (30-36) % RDW (11.6-14.8) % Plt Count (150-400) X10^3/uL Neut % (Auto) (50-75) % Lymph % (Auto) (25-40) % [place] % (Auto) (3-14) % Eos % (Auto) (2-4) % Baso % (Auto) (0-2) % Neut # (Auto) (5680-9008) /uL Lymph # (Auto) (1371-6029) /uL [place] # (Auto) (0-900) /uL Eos # (Auto) (0-450) /uL Baso # (Auto) (0-100) /uL PT (10.1-12.7) SECONDS INR (0.9-1.3) Sodium (137-145) mmol/L Potassium (3.4-5.1) mmol/L Chloride (98-107) mmol/L Carbon Dioxide (22-32) mmol/L BUN (9-20) mg/dL Creatinine (0.66-1.25) mg/dL Estimated GFR (>60) mL/min BUN/Creatinine Ratio (6-22) Glucose (80-110) mg/dL Lactate 1.1 (0.7-2.1) mmol/L Calcium (8.4-10.2) mg/dL Magnesium (1.6-2.3) mg/dL Total Bilirubin (0.2-1.3) mg/dL AST (17-59) IU/L ALT (<50) IU/L Alkaline Phosphatase (38-126) U/L Total Creatine Kinase (55-170) U/L CK-MB (CK-2) (<2.37) ng/mL CK-MB (CK-2) Rel Index (1.5-5.0) % Troponin I (0.01-0.034) ng/mL NT-Pro-B Natriuret Pep (<450) pg/mL Total Protein (6.3-8.2) g/dL Albumin (3.5-5.0) g/dL Globulin (1.7-4.1) g/dL Albumin/Globulin Ratio (1.0-2.8) Procalcitonin (<0.5) ng/mL Urine Color Yellow Urine Appearance Sl cloudy Urine pH 5.5 (4.5-8.0) Ur Specific [place] 1.015 (1.000-1.035) Urine Protein Negative (Negative) Urine Glucose (UA) Negative (Negative) g/dL Urine Ketones Negative (NEGATIVE) Urine Occult Blood 2+ H (Negative) Urine Nitrate Negative (Negative) Urine Bilirubin Negative (NEGATIVE) Urine Urobilinogen 0.2 (0.2) E.U./dL Ur Leukocyte Esterase Trace H (NEGATIVE) Urine RBC 30-100/hpf H (0-5/HPF) Urine WBC 0-1/hpf (0-5/HPF) Ur Squamous Epith Cells 0-1 /hpf (0-5/HPF) Urine Bacteria Occasional (0-1) (None) Ur Culture Indicated? Specimen cultured Imaging Data Chest x-ray: Radiologist's Impression: Interstitial prominence and faint bilateral opacity may indicate infection or edema CT scan - chest: Radiologist's Impression: Preliminary report no evidence of pulmonary embolus. Mild your it to severe emphysema and bronchial wall thickening suggestive of underlying reactive airway disease such as bronchitis. Bilateral hazy ground-glass opacity associated with trace bilateral pleural effusions. Findings may be secondary to infectious inflammatory process or fluid overload and early pulmonary edema. Correlate clinical is necessary. Mediastinal and hilar adenopathy which may be reactive in etiology. However given large side of these nodules clinical correlation is necessary for follow-up in is advised to exclude a neoplastic process ECG Data Attestation: I personally reviewed and interpreted this ECG as follows: Interpretation: Sinus mild rhythm rate [address] changes low voltage in lead 2 different from previous EKG MDM Narrative Medical decision making narrative: Patient appears to have CHF elevated BNP and peripheral edema along with shortness of breath. His head was leg down for the Simmons catheter and his O2 decreased. He responded well with Lasix putting out over more than 1 L. Patient supposedly has a concentrator oxygen at home however he was not prescribed it and never is ?qualified ?for it. He is taken off oxygen and at room air his O2 goes to 82%. I am on sure that he has actual oxygen at home and at this time recommend admission for CHF exacerbation and hypoxia. Discharge Plan Departure Patient Disposition: Admitted as Observation Clinical Impression: Congestive heart failure Qualifiers: Heart failure type: unspecified Heart failure chronicity: unspecified Qualified Code(s): I50.9 - Heart failure, unspecified Admit Date/Time: 11/20/20 04:46 Admit Provider: Faisal Gabriel
--- NOTE | 2020-11-20 01:34 | DI.CT.S_ITS ---
PROCEDURE: CT ANGIO CHEST PE PROTOCOL INDICATIONS: hypoxia, history of pulmonary embolism TECHNIQUE: After the administration of intravenous contrast, 2 mm thick sections acquired from the pulmonary apices to the posterior costophrenic angles. 3-dimensional maximum intensity projection (MIP) coronal and sagittal reformats were then acquired through the thorax. For radiation dose reduction, the following was used: automated exposure control, adjustment of mA and/or kV according to patient size. COMPARISON: [facility], MR, MR ABDOMEN MRCP, 05/23/2018, 23:02. [facility], CT, CT ANGIO CHEST PE PROTOCOL, 05/22/2018, 20:08. FINDINGS: Image quality: Excellent. Pulmonary arteries: Pulmonary arteries are normal in size, and demonstrate no intraluminal filling defects to suggest central pulmonary embolism. Lungs and pleura: Moderate to severe centrilobular emphysema is seen. Diffuse bronchial wall thickening and patchy ground-glass opacities are seen scattered in bilateral lung bailey. Trace bilateral pleural effusion is seen. No pneumothorax. Central and peripheral airways are patent. Mediastinum: Heart size is enlarged, without pericardial effusion. Prominent mediastinal lymph nodes are seen and measures up to 2 cm in short axis diameter in right paratracheal space. Thoracic aorta is normal in caliber and enhancement. Esophagus is normal in caliber, without hiatal hernia. Bones and chest wall: No suspicious bony lesions. Ribs and thoracic spine appear intact throughout. Small hypodensity involving lower pole of right thyroid lobe is seen. No axillary or supraclavicular adenopathy. Abdomen: Visualized upper abdominal solid organs appear normal in the early arterial phase of enhancement. 4.1 x 3.6 cm hypodensity involving right hepatic lobe inferior aspect is seen likely represent hepatic cyst. Additional possible small cysts are also seen in left and right hepatic lobes not significantly changed from 2018 study. IMPRESSION: 1. No evidence of pulmonary emboli. 2. Moderate to severe emphysema and suggestion of reactive airway disease such as bronchitis with bronchial wall thickening. 3. Scattered hazy ground-glass opacities in bilateral lung bailey and trace bilateral pleural effusion which may represent pulmonary edema versus pneumonitis. No pneumothorax. 4. Enlarged mediastinal and hilar lymph nodes suggestive of reactive inflammatory lymphadenopathy. Clinical correlation and follow-up is recommended. No discrepancies. Dictated by: Johnny Sinclair M.D. on 11/20/2020 at 8:19 Approved by: Johnny Sinclair M.D. on 11/20/2020 at 8:34
[2020-11-20] MEDS: FUROSEMIDE 40 MG/4 ML VIAL IV ×2 (01:54→09:22)
--- NOTE | 2020-11-20 02:42 | PC.NURSE ---
Bladder scan showed 520ml; pt unable to void
[2020-11-20 03:29] LABS: Appearance Urine UA SL CLOUDY; Bilirubin Urine UA NEGATIVE (NEGATIVE); Color Urine UA YELLOW; Glucose Urine UA NEGATIVE (Negative); Ketones Urine UA NEGATIVE (NEGATIVE); Leukocyte Esterase Urine UA TRACE (NEGATIVE); Nitrite Urine UA NEGATIVE (Negative); Occult Blood Urine UA 2+ (Negative); Protein Urine UA NEGATIVE (Negative); Specific Gravity Urine UA 1.015 (1.000-1.035); Urobilinogen Urine UA 0.2 E.U./dL (0.2); pH Urine UA 5.5 (4.5-8.0)
[2020-11-20 03:31] LABS: Bacteria Urine Occasional (0-1); Culture Indicated Urine Specimen Cultured; RBC Urine 30-100/HPF (0-5/HPF); Squamous Epithelial Cell Urine 0-1 /HPF (0-5/HPF); WBC Urine 0-1/HPF (0-5/HPF)
--- NOTE | 2020-11-20 04:33 | PC.NURSE ---
Pts daughter Liza had to leave prior to patient being admitted; she would like phone updates at [phone]
[2020-11-20 05:19] LABS: INR 2.3 (0.9-1.3); Prothrombin Time 26.2 SECONDS (10.1-12.7)
[2020-11-20 05:23] LABS: Magnesium 1.5 mg/dL (1.6-2.3)
--- NOTE | 2020-11-20 05:28 | P.HP_ITS ---
History of Present Illness History of Present Illness Date Patient Seen: 11/20/20 Chief complaint: Shortness of breath Narrative: Mr. Jimmie Quiroz is an 85-year-old male patient with a past medical history significant for diabetes type 2, GERD, history of multiple PEs, chronic lower extremity edema on Lasix who presents to the ER via EMS with complaints of shortness of breath for 3 days. Patient describes having a chronic shortness of breath for which he bought an O2 concentrator from friend approximately year and half ago that he has used often on. He states when he gets short of breath was concentrated on 70% use for few hours and then turns it off. Additionally the patient endorses having a 2 pillow orthopnea. Three days ago he states he became acutely short of breath with gasping and exertional dyspnea and developed associated rigors and chills. He denies nasal congestion or sore throat headaches or dizziness. He denies chest pain or palpitations, he has had shortness of breath as above and reports a nonproductive cough. He has had no abdominal pain, nausea vomiting though describes having a poor appetite. He denies constipation or diarrhea he reports no difficulty urinating. Upon arrival to the ER the patient has a temperature 99.6?, heart rate 107, blood pressure 122/71, respiratory rate of 28 saturating 93% on 4 L nasal cannula. A chest x-ray is taken which finds increased interstitial prominence with faint bibasilar opacities. CTA finds no PE but does identify moderate to severe emphysema with bronchial thickening consistent with bronchitis. Twelve lead EKG: Atrial fibrillation with a ventricular rate of 104, no ectopy, left axis deviation, left bundle branch block. On laboratory analysis he has white count of 7.6 with no shift, hemoglobin of 12.5 and hematocrit of 37.5 and platelets 225. His chemistries are notable for a potassium of 3.0, BUN of 25 and a creatinine of 1.05 and a nonfasting glucose 186. His liver functions are within normal range. His lactic acid of 1.100 procalcitonin of 0.10. His total CK is 119 with a CK-MB of 1.13 for an index is 0.9. He has elevated proBNP of 1150 and a troponin of 0.020. His urine is cloudy has a specific gravity of 1.125 and positive for blood and leukocyte esterase. His COVID screening is negative in the ER the patient received Lasix 40 mg and had a Simmons catheter placed. The patient is admitted to the hospitalist service for multifactorial acute respiratory failure. Patient History Medical History (Updated 11/20/20 @ 06:25 by SHARMIN Ferraro) Bilateral lower extremity edema Colon cancer Current use of usp anticoagulation Diabetes DVT (deep venous thrombosis) Emphysema lung GERD (gastroesophageal reflux disease) History of pulmonary embolus (PE) Tremor Venous stasis dermatitis Surgical History (Updated 11/20/20 @ 06:25 by SHARMIN Ferraro) History of arthroscopic knee surgery History of cholecystectomy Family & Social History Family History (Updated 11/20/20 @ 06:26 by SHARMIN Ferraro) Father Heart attack Mother Heart attack Brother Heart attack Sister Diabetes mellitus Social History: household members spouse,children Safety & Behavioral: Feels Safe in Current Yes Environment Been Physically Hurt or No Threatened By a Person Tobacco & Substance use: Smoking Status Former smoker alcohol intake former alcohol intake frequency holiday/special occasion Substance Use Type does not use Meds Home Medications and Allergies Home Medications Medication Instructions Recorded Confirmed Type albuterol sulfate [Ventolin HFA] 2 puff INH BID #0 08/14/16 05/22/18 History doxazosin 4 mg PO HS #0 08/14/16 05/22/18 History metformin [Glucophage XR] 1,000 mg PO QPM #0 08/14/16 05/22/18 History pantoprazole 40 mg PO QDRHS #0 08/14/16 05/22/18 History warfarin [Coumadin] 5 mg PO QPM #0 08/14/16 05/22/18 History acetaminophen 2 tab PO BID #0 07/07/17 05/22/18 History tramadol 50 mg PO Q6H PRN #10 tab 04/15/18 05/22/18 Rx Multi-Vitamins with Iron 1 tab PO DAILY 05/22/18 05/22/18 History gabapentin 300 mg PO BID 05/22/18 05/22/18 History Allergies Allergy/AdvReac Type Severity Reaction Status Date / Time Penicillins [PENICILLINS] Allergy Unknown Verified 11/19/20 22:00 Review of Systems Review of Systems ROS: Yes All systems reviewed with the patient and are negative except as otherwise documented Exam Vital Signs (past 8 hours): - 11/19/20 21:55 11/19/20 21:59 11/19/20 22:00 Temperature 99.6 F Pulse Rate 107 H 102 H 101 H Respiratory Rate 28 H Blood Pressure 122/71 122/71 Pulse Oximetry 93 92 92 11/19/20 22:30 11/19/20 23:00 11/19/20 23:30 Temperature Pulse Rate 97 H 58 L 57 L Respiratory Rate 29 H 25 H 27 H Blood Pressure 143/67 H Pulse Oximetry 95 93 95 11/19/20 23:46 11/20/20 00:00 11/20/20 00:30 Temperature Pulse Rate 56 L 54 L 56 L Respiratory Rate 28 H 23 25 H Blood Pressure 143/67 H 139/64 Pulse Oximetry 95 93 93 11/20/20 00:31 11/20/20 01:00 11/20/20 01:01 Temperature Pulse Rate 56 L 52 L 52 L Respiratory Rate 25 H 22 23 Blood Pressure 135/60 140/63 Pulse Oximetry 94 94 94 11/20/20 01:30 11/20/20 01:31 11/20/20 02:00 Temperature Pulse Rate 56 L 58 L 90 Respiratory Rate 27 H 22 22 Blood Pressure 174/72 H Pulse Oximetry 95 95 92 11/20/20 02:01 11/20/20 02:30 11/20/20 02:31 Temperature Pulse Rate 89 65 110 H Respiratory Rate 20 20 35 H Blood Pressure 121/61 121/69 Pulse Oximetry 93 90 L 90 L 11/20/20 03:00 11/20/20 03:30 11/20/20 04:00 Temperature Pulse Rate 88 55 L 56 L Respiratory Rate 16 22 26 H Blood Pressure 137/84 147/66 H Pulse Oximetry 89 L 91 94 11/20/20 04:01 11/20/20 04:30 11/20/20 04:31 Temperature Pulse Rate 60 63 57 L Respiratory Rate 28 H 24 25 H Blood Pressure 152/69 H 145/67 H Pulse Oximetry 94 80 L 87 L 11/20/20 05:00 11/20/20 05:01 Temperature Pulse Rate 54 L 55 L Respiratory Rate 30 H 27 H Blood Pressure 158/73 H Pulse Oximetry 89 L 89 L Oxygen Delivery Method Room Air Oxygen Flow Rate 0 Narrative Exam Narrative: GENERAL APPEARANCE: well developed, obese male sitting upright in bed with mild dyspnea. HEENT: Normocephalic, PERRLA, arcus senilis, conjunctiva clear, EOMs intact without nystagmus, mucous membranes are moist and pink. NECK/THYROID: neck supple, no JVD,no thyromegaly, trachea midline. LYMPH NODES: no cervical or supraclavicular lymphadenopathy. SKIN: [place], warm and dry, venous stasis dermatitis bilateral lower extremities HEART: regular rate and rhythm, S1-S2, no murmur, no rubs or gallops, brisk capillary refill, 2+ edema lower extremities LUNGS: Globally diminished lung sounds with bibasilar crackles no wheezing appreciated, no cough with deep inspiration. CHEST: Symmetrical movement, no retractions or accessory muscle use, shallow tidal volume, no conversational dyspnea. ABDOMEN: Soft, tympanitic to percussion no abdominal tenderness,no organomegaly, no flank or suprapubic tenderness, active bowel tones. 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 PSYCH: Good eye contact cooperative, appropriate with stable behavior Objective Labs Result Diagrams: 11/20/20 06:40 11/20/20 06:40 Labs: Laboratory Results - last 24 hr 11/19/20 11/19/20 11/19/20 21:50 21:50 22:10 WBC 7.6 RBC 3.84 L Hgb 12.5 L Hct 37.5 L MCV 97.7 MCH 32.6 MCHC 33.4 RDW 13.9 Plt Count 225 Neut % (Auto) 77.1 H Lymph % (Auto) 10.5 L [place] % (Auto) 9.4 Eos % (Auto) 2.3 Baso % (Auto) 0.7 Neut # (Auto) 5900 Lymph # (Auto) 800 L [place] # (Auto) 700 Eos # (Auto) 200 Baso # (Auto) 100 PT 26.2 H INR 2.3 H Sodium 140 Potassium 3.0 L Chloride 106 Carbon Dioxide 23 BUN 23 H Creatinine 1.05 Estimated GFR > 60.0 BUN/Creatinine Ratio 21.9 Glucose 186 H Lactate Calcium 9.0 Magnesium Total Bilirubin 1.3 AST 26 ALT 15 Alkaline Phosphatase 57 Total Creatine Kinase CK-MB (CK-2) CK-MB (CK-2) Rel Index Troponin I NT-Pro-B Natriuret Pep Total Protein 6.6 Albumin 3.6 Globulin 3.0 Albumin/Globulin Ratio 1.2 Procalcitonin Urine Color Urine Appearance Urine pH Ur Specific Adel Urine Protein Urine Glucose (UA) Urine Ketones Urine Occult Blood Urine Nitrate Urine Bilirubin Urine Urobilinogen Ur Leukocyte Esterase Urine RBC Urine WBC Ur Squamous Epith Cells Urine Bacteria Ur Culture Indicated? 11/19/20 11/19/20 11/19/20 22:10 22:10 22:10 WBC RBC Hgb Hct MCV MCH MCHC RDW Plt Count Neut % (Auto) Lymph % (Auto) [place] % (Auto) Eos % (Auto) Baso % (Auto) Neut # (Auto) Lymph # (Auto) [place] # (Auto) Eos # (Auto) Baso # (Auto) PT INR Sodium Potassium Chloride Carbon Dioxide BUN Creatinine Estimated GFR BUN/Creatinine Ratio Glucose Lactate 2.0 Calcium Magnesium 1.5 L Total Bilirubin AST ALT Alkaline Phosphatase Total Creatine Kinase 119 CK-MB (CK-2) 1.13 CK-MB (CK-2) Rel Index 0.9 L Troponin I 0.020 NT-Pro-B Natriuret Pep 1150 H Total Protein Albumin Globulin Albumin/Globulin Ratio Procalcitonin 0.10 Urine Color Urine Appearance Urine pH Ur Specific Adel Urine Protein Urine Glucose (UA) Urine Ketones Urine Occult Blood Urine Nitrate Urine Bilirubin Urine Urobilinogen Ur Leukocyte Esterase Urine RBC Urine WBC Ur Squamous Epith Cells Urine Bacteria Ur Culture Indicated? 11/20/20 11/20/20 00:30 03:15 WBC RBC Hgb Hct MCV MCH MCHC RDW Plt Count Neut % (Auto) Lymph % (Auto) [place] % (Auto) Eos % (Auto) Baso % (Auto) Neut # (Auto) Lymph # (Auto) [place] # (Auto) Eos # (Auto) Baso # (Auto) PT INR Sodium Potassium Chloride Carbon Dioxide BUN Creatinine Estimated GFR BUN/Creatinine Ratio Glucose Lactate 1.1 Calcium Magnesium Total Bilirubin AST ALT Alkaline Phosphatase Total Creatine Kinase CK-MB (CK-2) CK-MB (CK-2) Rel Index Troponin I NT-Pro-B Natriuret Pep Total Protein Albumin Globulin Albumin/Globulin Ratio Procalcitonin Urine Color Yellow Urine Appearance Sl cloudy Urine pH 5.5 Ur Specific Adel 1.015 Urine Protein Negative Urine Glucose (UA) Negative Urine Ketones Negative Urine Occult Blood 2+ H Urine Nitrate Negative Urine Bilirubin Negative Urine Urobilinogen 0.2 Ur Leukocyte Esterase Trace H Urine RBC 30-100/hpf H Urine WBC 0-1/hpf Ur Squamous Epith Cells 0-1 /hpf Urine Bacteria Occasional (0-1) Ur Culture Indicated? Specimen cultured Assessment & Plan Assessment & Plan narrative: The patient is an 85-year-old male patient with a past medical history significant for diabetes type 2, GERD, history of multiple PEs, chronic lower extremity edema on Lasix who presents to the ER via EMS with complaints of shortness of breath for 3 days complaining of associated fevers, rigors and chills, worsening dyspnea with activity. 1. Acute on chronic respiratory failure with hypoxia, multifactorial, acute, present on admission, active. -the patient presents with acute dyspnea with respiratory rate of 28 requiring 4 L of oxygen to maintain a saturation 93%. His PF ratio by table conversion is 191.6. -cause of shortness of breath include: Congestive heart failure evidence by elevated proBNP at 1150 bilateral extremity swelling with chest x-ray identifying increased interstitial prominence. COPD, evidence by CT of the chest identifying moderate to severe emphysema. Pneumonia, evidence by fevers, rigors and chills, procalcitonin of 0.[address] identifying bronchial thickening. -requested RT to consult evaluate and treat. -EGD allergy is discussed below 2. Acute on chronic congestive heart failure with preserved ejection fraction, present on admission, active. -proBNP is 1150. Troponin is 0.020. Chest x-ray identifies interstitial prominence. -most recent echocardiogram on 09/19/2020 describes increased LV wall thickness, concentric, EF of 50-55% and is noted to be reduced from prior study in 2018. -the patient received Lasix 40 mg IV in the emergency department with diuresis of 1 L. will continue Lasix 40 mg IV daily. 3. Hypokalemia, acute, present on admission, active -initial labs find potassium of 3.0 and the patient subsequently received Lasix 40 mg IV. -ordered potassium 40 mEq by mouth and 40 mEq IV. Will recheck potassium level at 1:00 p.m. 4. COPD, emphysema, chronic, active. -patient describes episodic difficulty breathing for which he purchased an oxygen concentrator that he will use on an as-needed basis. The patient reports using his oxygen for last 3 days. -requested RT to consult evaluate and treat. -ordered albuterol Atrovent nebulizer twice daily and albuterol MDI every 2 hours as needed. 5. Community-acquired pneumonia, probable bacterial acute, active. -patient reports fevers, rigors and chills at home presents with a temperature of 99.6? upon arrival the ER. He has bibasilar opacities on chest x-ray. -ordered Rocephin 2 g daily and azithromycin 500 mg daily for 3 days. 6. Atrial fibrillation, probable paroxysmal, present on admission, stable. -12 lead EKG finds atrial fibrillation with a rate of 104 without ectopy, left axis shift and left bundle branch block. Previous tracings identify sinus rhythm. -on telemetry the patient is going in and out of atrial fibrillation helping a sinus mechanism with a biphasic P wave consistent with left atrial enlargement. -patient is hypokalemic as noted above and repleted with 40 mEq p.o. and 40 mEq IV potassium. Magnesium is 1.5 repleted with 2 g Mag sulfate IV. -will continue anticoagulation with warfarin 5 mg daily and check PT and INR. 7. Diabetes type 2, uncontrolled, chronic, stable -patient previously on metformin but was intolerant to side effects. -He is noncompliant with a diabetic diet request dietitian consult. -ordered fingerstick blood sugars a.c. and hs, coverage with low-dose correctional insulin. 8. Probable UTI, present on admission, active. -urinalysis finds specific gravity 1.015, urine is cloudy and positive for blood leukocyte esterase. -patient is receiving Rocephin IV. VTE prophylaxis: Enoxaparin IV fluid: Saline lock Diet: Small consistent carbohydrate Code status: DO NOT RESUSCITATE, the patient designates his daughter to be his surrogate decision maker. The patient is admitted to the hospital due to the severity of his difficulty breathing requiring a complex treatment plan to cover the multiple etiologies. The patient is admitted as an inpatient with expected length of stay greater than 2 midnights. COVID-19 COVID-19 status: Negative Result date/Date tested (Pos, Neg/Pending): 11/20/20 Scores GCS [place] coma scale eye opening: Spontaneous [place] coma scale verbal response: Orientated [place] coma scale motor response: Obey commands [place] coma scale total score: 15 Quality MIPS - Admit I confirm the patient?s Advance Care Plan is present, Code status is documented, Surrogate decision maker is in patient?s record [If Yes, STOP here]: Yes
[2020-11-20 05:38] LABS: COVID19 - ADMIT (NP swab/PCR) Negative (Negative)
--- NOTE | 2020-11-20 05:45 | DI.ECHO.S_ITS ---
[facility]---------+ [facility] +---------+ : : [address] : : : : [id number] : : : : Phone: [phone]+ Echocardiogram Report + + :Name: GUSTABO CLAUDIO Study Date: 11/20/2020 Height: 76 in : :[facility] ReadingLocation: Weight: 250 lb : : Gender: Male BSA: 2.4 m2 : :: 1935 Age: 85 yrs BP: 145/67 mmHg: :Reason For Study: ACUTE ON CHRONIC HEART FAILURE : :Ordering Physician: SALVADOR, : :SILKE FINNEY Performed By: Cintia Celestin : :Referring: SILKE FRANCO : + + Interpretation Summary Limited Echo: 1) Mildly increased left ventricular thickness (concentric) with upper normal size and low normal systolic function (EF 50-55%). 2) Mildly enlarged right ventricle with low normal function. 3) Compared to the Echo done 09/19/2020, no significant change. Procedure: A two-dimensional transthoracic echocardiogram with color flow and Doppler was performed in limited views only to assess ejection fraction.. The study quality was technically adequate. Comparison is made with the echocardiogram of 09/19/2020. Left Ventricle: The estimated left ventricular end diastolic volume is 147 ml. There is normal left ventricular wall thickness. Left ventricular size is at the upper limits of normal. The ejection fraction is estimated to be 50- 55%. There are no focal wall motion abnormalities. Right Ventricle: The right ventricle is mildly dilated. Right ventricular systolic function is at the lower limits of normal. Atria: The left atrium is mildly dilated. The right atrium is borderline dilated. Pericardium/ Pleura There is no pericardial effusion. There is no pleural effusion. MMode/2D Measurements & Calculations LVIDd: 5.6 cm LA A2 area: 29.4 cm2 LVIDs: 4.0 cm LA A4 area: 23.6 cm2 FS: 28.6 % LA length (vol): 6.3 cm IVSd: 0.96 cm LA vol: 93.8 ml LVPWd: 0.97 cm LA vol index: 38.5 ml/m2 LV white. diameter/BSA (cm/m^2): 2.3 LV sys. diameter/BSA (cm/m^2): 1.6 RA long axis: 5.6 cm RVD1 (basal): 4.1 cm RA area: 23.1 cm2 TAPSE: 2.0 cm RA vol: 81.5 ml RA : 33.4 ml/m2 Reading Physician:02:47 PM
[2020-11-20] MEDS: POTASSIUM CHLORIDE 20 MEQ TAB 40 MEQ PO (06:07)
[2020-11-20] MEDS: MAGNESIUM SULFATE 2 GM/50 ML PIGGYBACK IV (06:08)
[2020-11-20 06:50] LABS: Add Manual Diff / Slide Review NO; Basophils Absolute Auto 100 /uL (0-100); Basophils Percent Auto 0.8 % (0-2); Eosinophils Absolute Auto 200 /uL (0-450); Eosinophils Percent Auto 2.4 % (2-4); Hematocrit 36.6 % (41-53); Hemoglobin 12.1 g/dL (13.5-17.5); Lymphocytes Absolute Auto 900 /uL (1100-4500); Lymphocytes Percent Auto 11.9 % (25-40); Mean Corpuscular Hemoglobin 32.2 PG (26-34); Mean Corpuscular Volume 97.7 fL (80-100); Monocytes Absolute Auto 700 /uL (0-900); Monocytes Percent Auto 10.3 % (3-14); Neutrophils Absolute Auto 5300 /uL (1500-7000); Neutrophils Percent Auto 74.6 % (50-75); Platelet Count 222 X10^3/uL (150-400); Red Blood Cell Count 3.74 X10^6/uL (4.5-5.9); White Blood Cell Count 7.1 X10^3/uL (4.5-11.0)
[2020-11-20] MEDS: POTASSIUM CHLORIDE 40 MEQ in SODIUM CHLORIDE 0.9% 500 ML 130 ML IV (06:53)
[2020-11-20 07:00] LABS: Hemoglobin A1C% w Est Avg Glu 8.1 % (4.0-6.0)
[2020-11-20 07:02] LABS: Cholesterol 95 mg/dL (140-199); HDL Cholesterol 32 mg/dL (40-60); LDL Cholesterol Calculated 42 mg/dL (<100); Triglycerides 107 mg/dL (35-150)
[2020-11-20 07:04] LABS: BUN Creatinine Ratio 23.5 (6-22); Blood Urea Nitrogen 23 mg/dL (9-20); Calcium 8.9 mg/dL (8.4-10.2); Carbon Dioxide 28 mmol/L (22-32); Chloride 103 mmol/L (98-107); Estimated Glomerular Filt Rate > 60.0 mL/min (>60); Glucose 156 mg/dL (80-110); HEMOLYSIS 15 (0-50); Sodium 141 mmol/L (137-145)
[2020-11-20 07:11] LABS: NT-proBNP (BNP-Adult 18+) 887 pg/mL (<450)
[2020-11-20 07:13] LABS: Troponin I 0.027 ng/mL (0.01-0.034)
[2020-11-20 07:33] LABS: Thyroid Stimulating Hormone 0.598 uIU/mL (0.47-4.68)
[2020-11-20 07:49] LABS: Magnesium 1.9 mg/dL (1.6-2.3)
[2020-11-20] MEDS: CEFTRIAXONE 2 GM/50 ML FROZ.PIGGY IV (08:26)
[2020-11-20] MEDS: DOCUSATE 100 MG CAPSULE PO ×2 (08:30→20:34)
[2020-11-20] MEDS: ASPIRIN EC 81 MG TABLET PO (08:30)
--- NOTE | 2020-11-20 08:35 | PC.NURSE ---
Per production shift supervisor RN magnesium and potassium infusions were to be priority for infusing first. Antibiotics not yet infused, rescheduled by pharmacy, and this RN attempted to obtain second IV site. Clarification needed re IV lasix order, will follow.
[2020-11-20] MEDS: ALBUTEROL/IPRATROPIUM 3 ML AMPUL INH ×2 (08:42→19:37)
[2020-11-20] MEDS: INSULIN ASPART 100 UNIT/ML INSULN PEN SUBCUT ×4 (08:48→20:34)
[2020-11-20] MEDS: predniSONE 20 MG TABLET 40 MG PO (09:22)
[2020-11-20] MEDS: AZITHROMYCIN 500 MG in DEXTROSE 5% IN WATER 250 ML IV (09:22)
[2020-11-20] MEDS: POTASSIUM CHLORIDE 20 MEQ/15 ML UDC 40 MEQ PO ×3 (11:48→20:34)
--- NOTE | 2020-11-20 14:30 | CM.DANOTE ---
Patient is an 85 year old male who was admitted on 11/20/20 for SOB. Pt has MCR for insurance and his PCP is [facility]. EMR was reviewed. Per MD, pt with hx of diabetes, multiple PE's, edema with [facility] [place] and now SOB. Pt admitted for acute Resp Failure and requiring oxygen. Per MD, pt not quite medically appropriate for PT eval today but will likely be stable enough to order PT eval tomorrow. SW met bedside with pt and explained role and he confirms he lives at home in [place] with his adult Dtr/DPOA Liza and due to hx of knee surgery he does not ambulate far but uses 4WW in the bedrooms and hallways as his w/c does not fit but has w/c set up in the kitchen that he uses while getting his food ready. Pt is mostly independent with his ADL's and Dtr assists with appointments, chores, driving. Pt has a remote hx of using HH and would be agreeable if needed at d/c and denies any hx of SNF. Pt discussed his spouse was [facility] 2 years before passing away 2 years ago and pt has been discussing if he may be at a place that Hospice referral could be beneficial for himself. SW discussed further with him and currently his plan is to speak with his PCP to determine if he would likely qualify for Hospice at this time and not currently requesting referral by SW or the hospital but has been contemplating this and discussing with Dtr. Pt aware that he is below baseline and that PT and possibly OT will help determine if he is closer to baseline for safe d/c home with Dtr or not and RT working with pt towards likely need of setting up home O2 as pt has been using oxygen at home from a friend and not managed by oxygen company. Plan: SW to follow closely for ordering of PT/OT eval tomorrow when more medically appropriate to participate and confirm if he will be safe for d/c home with Dtr and HH vs SNF. SOLEDAD Doan Discharge Planning/Care Management CM Discharge Assessment Start: 11/20/20 14:22 Freq: Status: Active Protocol: Document 11/20/20 14:23 BF (Rec: 11/20/20 14:30 BF [id number]) Discharge Planning Assessment Assigned Airport Ramp Attendant SOLEDAD Mariano DPOA/Assigned Designee Name Dtr Liza Contact Information [phone] Advance Directives? Yes Advance Directives on File bringing in a copy History Provided By Patient,Medical Record Has Patient been admitted in last 30 No days? Prior Living Arrangements House Household Members children Comment Spouse 2 years ago Type of transporation used prior to Relies on Others admit Comment Lives at home with his adult Dtr, spouse 2 years ago on Hospice Independent with ADL's Yes: mostly Is patient alert and oriented? Yes Needs Assistance With Meal Prep,Home Chores / Shopping Caregiver for Another No DME Already Rented / Owned Wheelchair,FWW / Walker Comment Pending PT eval tomorrow when more medically appropriate Barriers to Discharge No Discharge Plan Home Transportation Arrangement Likely Dtr POV Additional Comment Pending PT eval and recommendations Whiteboard Updated in Patient Room with Yes name and ext. # of Airport Ramp Attendant Review Status In Process Please Provide Date Initial DC 11/20/20 Assessment Was Performed Next Review Type Continued Stay Review
--- NOTE | 2020-11-20 16:06 | PM.PN.1 ---
Subjective Subjective Interval history: Still feels short of breath, but does feel like it is quite improved after starting on treatment here. Otherwise no complaints Exam Vital Signs (past 8 hours): - 11/20/20 08:16 11/20/20 08:51 11/20/20 12:00 Temperature 98.0 F 98.0 F Pulse Rate 80 58 L 57 L Respiratory Rate 18 20 Blood Pressure 132/71 109/64 Pulse Oximetry 97 93 92 Oxygen Delivery Method Nasal Cannula Oxygen Flow Rate 4 Narrative Exam Narrative: GENERAL APPEARANCE: mild respiratory distress HEENT: Normocephalic, PERRLA, conjunctiva clear, EOMs intact without nystagmus, mucous membranes are moist and pink. NECK/THYROID: neck supple, no JVD, trachea midline. SKIN: [place], warm and dry, venous stasis dermatitis bilateral lower extremities HEART: regular rate and rhythm, S1-S2, no murmur, no rubs or gallops, brisk capillary refill, 2+ edema lower extremities LUNGS: Globally diminished lung sounds ABDOMEN: Soft, no abdominal tenderness,no organomegaly, no flank or suprapubic tenderness, active bowel tones. 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 PSYCH: Good eye contact cooperative, appropriate with stable behavior Objective Labs Result Diagrams: 11/20/20 06:40 11/20/20 06:40 Labs: Laboratory Results - last 24 hr 11/19/20 11/19/20 11/19/20 21:50 21:50 22:10 WBC 7.6 RBC 3.84 L Hgb 12.5 L Hct 37.5 L MCV 97.7 MCH 32.6 MCHC 33.4 RDW 13.9 Plt Count 225 Neut % (Auto) 77.1 H Lymph % (Auto) 10.5 L [place] % (Auto) 9.4 Eos % (Auto) 2.3 Baso % (Auto) 0.7 Neut # (Auto) 5900 Lymph # (Auto) 800 L [place] # (Auto) 700 Eos # (Auto) 200 Baso # (Auto) 100 PT 26.2 H INR 2.3 H Sodium 140 Potassium 3.0 L Chloride 106 Carbon Dioxide 23 BUN 23 H Creatinine 1.05 Estimated GFR > 60.0 BUN/Creatinine Ratio 21.9 Glucose 186 H Hemoglobin A1c Lactate Calcium 9.0 Magnesium Total Bilirubin 1.3 AST 26 ALT 15 Alkaline Phosphatase 57 Total Creatine Kinase CK-MB (CK-2) CK-MB (CK-2) Rel Index Troponin I NT-Pro-B Natriuret Pep Total Protein 6.6 Albumin 3.6 Globulin 3.0 Albumin/Globulin Ratio 1.2 Triglycerides Cholesterol LDL Cholesterol, Calc HDL Cholesterol Procalcitonin TSH Urine Color Urine Appearance Urine pH Ur Specific [place] Urine Protein Urine Glucose (UA) Urine Ketones Urine Occult Blood Urine Nitrate Urine Bilirubin Urine Urobilinogen Ur Leukocyte Esterase Urine RBC Urine WBC Ur Squamous Epith Cells Urine Bacteria Ur Culture Indicated? SARS-CoV-2 (PCR) 11/19/20 11/19/20 11/19/20 22:10 22:10 22:10 WBC RBC Hgb Hct MCV MCH MCHC RDW Plt Count Neut % (Auto) Lymph % (Auto) [place] % (Auto) Eos % (Auto) Baso % (Auto) Neut # (Auto) Lymph # (Auto) [place] # (Auto) Eos # (Auto) Baso # (Auto) PT INR Sodium Potassium Chloride Carbon Dioxide BUN Creatinine Estimated GFR BUN/Creatinine Ratio Glucose Hemoglobin A1c Lactate 2.0 Calcium Magnesium 1.5 L Total Bilirubin AST ALT Alkaline Phosphatase Total Creatine Kinase 119 CK-MB (CK-2) 1.13 CK-MB (CK-2) Rel Index 0.9 L Troponin I 0.020 NT-Pro-B Natriuret Pep 1150 H Total Protein Albumin Globulin Albumin/Globulin Ratio Triglycerides Cholesterol LDL Cholesterol, Calc HDL Cholesterol Procalcitonin 0.10 TSH Urine Color Urine Appearance Urine pH Ur Specific [place] Urine Protein Urine Glucose (UA) Urine Ketones Urine Occult Blood Urine Nitrate Urine Bilirubin Urine Urobilinogen Ur Leukocyte Esterase Urine RBC Urine WBC Ur Squamous Epith Cells Urine Bacteria Ur Culture Indicated? SARS-CoV-2 (PCR) 11/20/20 11/20/20 11/20/20 00:30 03:15 04:55 WBC RBC Hgb Hct MCV MCH MCHC RDW Plt Count Neut % (Auto) Lymph % (Auto) [place] % (Auto) Eos % (Auto) Baso % (Auto) Neut # (Auto) Lymph # (Auto) [place] # (Auto) Eos # (Auto) Baso # (Auto) PT INR Sodium Potassium Chloride Carbon Dioxide BUN Creatinine Estimated GFR BUN/Creatinine Ratio Glucose Hemoglobin A1c Lactate 1.1 Calcium Magnesium Total Bilirubin AST ALT Alkaline Phosphatase Total Creatine Kinase CK-MB (CK-2) CK-MB (CK-2) Rel Index Troponin I NT-Pro-B Natriuret Pep Total Protein Albumin Globulin Albumin/Globulin Ratio Triglycerides Cholesterol LDL Cholesterol, Calc HDL Cholesterol Procalcitonin TSH Urine Color Yellow Urine Appearance Sl cloudy Urine pH 5.5 Ur Specific [place] 1.015 Urine Protein Negative Urine Glucose (UA) Negative Urine Ketones Negative Urine Occult Blood 2+ H Urine Nitrate Negative Urine Bilirubin Negative Urine Urobilinogen 0.2 Ur Leukocyte Esterase Trace H Urine RBC 30-100/hpf H Urine WBC 0-1/hpf Ur Squamous Epith Cells 0-1 /hpf Urine Bacteria Occasional (0-1) Ur Culture Indicated? Specimen cultured SARS-CoV-2 (PCR) Negative 11/20/20 11/20/20 11/20/20 06:40 06:40 06:40 WBC RBC Hgb Hct MCV MCH MCHC RDW Plt Count Neut % (Auto) Lymph % (Auto) [place] % (Auto) Eos % (Auto) Baso % (Auto) Neut # (Auto) Lymph # (Auto) [place] # (Auto) Eos # (Auto) Baso # (Auto) PT INR Sodium Cancelled Potassium Cancelled Chloride Cancelled Carbon Dioxide Cancelled BUN Cancelled Creatinine Cancelled Estimated GFR Cancelled BUN/Creatinine Ratio Cancelled Glucose Cancelled Hemoglobin A1c 8.1 H Lactate Calcium Cancelled Magnesium Total Bilirubin AST ALT Alkaline Phosphatase Total Creatine Kinase CK-MB (CK-2) CK-MB (CK-2) Rel Index Troponin I NT-Pro-B Natriuret Pep Total Protein Albumin Globulin Albumin/Globulin Ratio Triglycerides Cholesterol LDL Cholesterol, Calc HDL Cholesterol Procalcitonin TSH 0.598 Urine Color Urine Appearance Urine pH Ur Specific [place] Urine Protein Urine Glucose (UA) Urine Ketones Urine Occult Blood Urine Nitrate Urine Bilirubin Urine Urobilinogen Ur Leukocyte Esterase Urine RBC Urine WBC Ur Squamous Epith Cells Urine Bacteria Ur Culture Indicated? SARS-CoV-2 (PCR) 11/20/20 11/20/20 11/20/20 06:40 06:40 06:40 WBC 7.1 RBC 3.74 L Hgb 12.1 L Hct 36.6 L MCV 97.7 MCH 32.2 MCHC 33.0 RDW 14.0 Plt Count 222 Neut % (Auto) 74.6 Lymph % (Auto) 11.9 L [place] % (Auto) 10.3 Eos % (Auto) 2.4 Baso % (Auto) 0.8 Neut # (Auto) 5300 Lymph # (Auto) 900 L [place] # (Auto) 700 Eos # (Auto) 200 Baso # (Auto) 100 PT INR Sodium Potassium Chloride Carbon Dioxide BUN Creatinine Estimated GFR BUN/Creatinine Ratio Glucose Hemoglobin A1c Lactate Calcium Magnesium Total Bilirubin AST ALT Alkaline Phosphatase Total Creatine Kinase CK-MB (CK-2) CK-MB (CK-2) Rel Index Troponin I 0.027 NT-Pro-B Natriuret Pep 887 H Total Protein Albumin Globulin Albumin/Globulin Ratio Triglycerides 107 Cholesterol 95 L LDL Cholesterol, Calc 42 HDL Cholesterol 32 L Procalcitonin TSH Urine Color Urine Appearance Urine pH Ur Specific [place] Urine Protein Urine Glucose (UA) Urine Ketones Urine Occult Blood Urine Nitrate Urine Bilirubin Urine Urobilinogen Ur Leukocyte Esterase Urine RBC Urine WBC Ur Squamous Epith Cells Urine Bacteria Ur Culture Indicated? SARS-CoV-2 (PCR) 11/20/20 11/20/20 06:40 06:40 WBC RBC Hgb Hct MCV MCH MCHC RDW Plt Count Neut % (Auto) Lymph % (Auto) [place] % (Auto) Eos % (Auto) Baso % (Auto) Neut # (Auto) Lymph # (Auto) [place] # (Auto) Eos # (Auto) Baso # (Auto) PT INR Sodium 141 Potassium 3.0 L Chloride 103 Carbon Dioxide 28 BUN 23 H Creatinine 0.98 Estimated GFR > 60.0 BUN/Creatinine Ratio 23.5 H Glucose 156 H Hemoglobin A1c Lactate Calcium 8.9 Magnesium 1.9 Total Bilirubin AST ALT Alkaline Phosphatase Total Creatine Kinase CK-MB (CK-2) CK-MB (CK-2) Rel Index Troponin I NT-Pro-B Natriuret Pep Total Protein Albumin Globulin Albumin/Globulin Ratio Triglycerides Cholesterol LDL Cholesterol, Calc HDL Cholesterol Procalcitonin TSH Urine Color Urine Appearance Urine pH Ur Specific [place] Urine Protein Urine Glucose (UA) Urine Ketones Urine Occult Blood Urine Nitrate Urine Bilirubin Urine Urobilinogen Ur Leukocyte Esterase Urine RBC Urine WBC Ur Squamous Epith Cells Urine Bacteria Ur Culture Indicated? 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 Diabetes DVT (deep venous thrombosis) Emphysema lung GERD (gastroesophageal reflux disease) History of pulmonary embolus (PE) Tremor Venous stasis dermatitis Surgical History (Updated 11/20/20 @ 06:25 by SHARMIN Ferraro) History of arthroscopic knee surgery History of cholecystectomy Family History (Updated 11/20/20 @ 06:26 by SHARMIN Ferraro) Father Heart attack Mother Heart attack Brother Heart attack Sister Diabetes mellitus Social History household members: children Smoking Status: Former smoker alcohol intake: former Assessment & Plan Assessment & Plan narrative: 85-year-old male patient with a past medical history significant for diabetes type 2, GERD, history of multiple PEs, chronic lower extremity edema on Lasix who presents to the ER via EMS with complaints of shortness of breath for 3 days complaining of associated fevers, rigors and chills, worsening dyspnea with activity. 1. Acute on chronic respiratory failure with hypoxia, multifactorial, acute, present on admission, active. -the patient presents with acute dyspnea with respiratory rate of 28 requiring 4 L of oxygen to maintain a saturation 93%. -cause of shortness of breath include: Congestive heart failure evidence by elevated proBNP at 1150 bilateral extremity swelling with chest x-ray identifying increased interstitial prominence. COPD, evidence by CT of the chest identifying moderate to severe emphysema. Pneumonia, evidence by fevers, rigors and chills, procalcitonin of 0.[address] identifying bronchial thickening. -requested RT to consult evaluate and treat. 2. Acute on chronic congestive heart failure with preserved ejection fraction, present on admission, active. -proBNP is 1150. Troponin is 0.020. Chest x-ray identifies interstitial prominence. -most recent echocardiogram on 09/19/2020 describes increased LV wall thickness, concentric, EF of 50-55% and is noted to be reduced from prior study in 2018. -the patient received Lasix 40 mg IV in the emergency department with diuresis of 1 L. will continue Lasix 40 mg IV daily. 3. Hypokalemia, acute, present on admission, active -initial labs find potassium of 3.0 and the patient subsequently received Lasix 40 mg IV. -ordered potassium 40 mEq TID today and repeat in PM 4. COPD, emphysema, chronic, active. -patient describes episodic difficulty breathing for which he purchased an oxygen concentrator that he will use on an as-needed basis. The patient reports using his oxygen for last 3 days. -requested RT to consult evaluate and treat. -ordered albuterol Atrovent nebulizer twice daily and albuterol MDI every 2 hours as needed. -add prednisone 5. Community-acquired pneumonia, probable bacterial acute, active. -patient reports fevers, rigors and chills at home presents with a temperature of 99.6? upon arrival the ER. He has bibasilar opacities on chest x-ray. -ordered Rocephin 2 g daily and azithromycin 500 mg daily for 3 days. 6. Atrial fibrillation, probable paroxysmal, present on admission, stable. -12 lead EKG finds atrial fibrillation with a rate of 104 without ectopy, left axis shift and left bundle branch block. Previous tracings identify sinus rhythm. -on telemetry the patient is going in and out of atrial fibrillation helping a sinus mechanism with a biphasic P wave consistent with left atrial enlargement. -patient is hypokalemic as noted above and repleted with 40 mEq p.o. and 40 mEq IV potassium. Magnesium is 1.5 repleted with 2 g Mag sulfate IV. -will continue anticoagulation with warfarin 5 mg daily and check PT and INR. 7. Diabetes type 2, uncontrolled, chronic, stable -patient previously on metformin but was intolerant to side effects. -He is noncompliant with a diabetic diet request dietitian consult. -ordered fingerstick blood sugars a.c. and hs, coverage with low-dose correctional insulin. VTE prophylaxis: Enoxaparin IV fluid: Saline lock Diet: Small consistent carbohydrate Code status: DO NOT RESUSCITATE, the patient designates his daughter to be his surrogate decision maker.
[2020-11-20 16:22] LABS: BUN Creatinine Ratio 22.7 (6-22); Blood Urea Nitrogen 20 mg/dL (9-20); Calcium 8.5 mg/dL (8.4-10.2); Carbon Dioxide 25 mmol/L (22-32); Chloride 105 mmol/L (98-107); Estimated Glomerular Filt Rate > 60.0 mL/min (>60); Glucose 286 mg/dL (80-110); HEMOLYSIS < 15 (0-50); Potassium 4.7 mmol/L (3.4-5.1); Sodium 139 mmol/L (137-145)
[2020-11-20] MEDS: WARFARIN 5 MG TABLET PO (17:08)
--- NOTE | 2020-11-20 18:21 | PC.NURSE ---
call from ICU nurse, patient dipping down as low as 47bpm and noted prolonged QT waves. Provider made aware. EKG ordered, no action to further be taken. Per Provider everything looks to be just fine.
[2020-11-21] VITALS (12 sets, daily range): BP systolic 133–143; BP diastolic 64–73; PULSE 53–97; RESP 16–21; TEMP 36.1–36.9; O2SAT 87–95
[2020-11-21 00:06] LABS: Enterococcus species Not Detected (Not Detect); Listeria monocytogenes Not Detected (Not Detect); Methicillin-resistant gene Detected (Not Detect); Staphylococcus species Detected (Not Detect); Streptococcus agalactiae (Gr B Not Detected (Not Detect); Streptococcus species Not Detected (Not Detect)
[2020-11-21 00:07] LABS: Acinetobacter baumannii Not Detected (Not Detect); Candida albicans Not Detected (Not Detect); Candida glabrata Not Detected (Not Detect); Candida krusei Not Detected (Not Detect); Candida parapsilosis Not Detected (Not Detect); Candida tropicalis Not Detected (Not Detect); E. coli Not Detected (Not Detect); Enterobacter cloacae complex Not Detected (Not Detect); Enterobacteriaceae species Not Detected (Not Detect); Haemophilus influenzae Not Detected (Not Detect); Neisseria meningitidis Not Detected (Not Detect); Proteus species Not Detected (Not Detect); Pseudomonas aeruginosa Not Detected (Not Detect); Serratia marcescens Not Detected (Not Detect); Streptococcus pneumonia Not Detected (Not Detect); Streptococcus pyogenes (Gr A) Not Detected (Not Detect)
[2020-11-21] MEDS: ALBUTEROL/IPRATROPIUM 3 ML AMPUL INH ×2 (01:28→10:41)
--- NOTE | 2020-11-21 03:46 | PC.NURSE ---
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 pt stable at this time.
[2020-11-21 05:32] LABS: Hematocrit 33.5 % (41-53); Mean Corpuscular HGB Conc 32.9 % (30-36); Mean Corpuscular Hemoglobin 32.1 PG (26-34); Mean Corpuscular Volume 97.5 fL (80-100); Platelet Count 218 X10^3/uL (150-400); Red Blood Cell Count 3.43 X10^6/uL (4.5-5.9); White Blood Cell Count 6.4 X10^3/uL (4.5-11.0)
[2020-11-21 05:37] LABS: INR 2.9 (0.9-1.3); Prothrombin Time 32.5 SECONDS (10.1-12.7)
[2020-11-21 05:45] LABS: BUN Creatinine Ratio 26.8 (6-22); Blood Urea Nitrogen 22 mg/dL (9-20); Calcium 8.5 mg/dL (8.4-10.2); Carbon Dioxide 27 mmol/L (22-32); Chloride 107 mmol/L (98-107); Estimated Glomerular Filt Rate > 60.0 mL/min (>60); Glucose 161 mg/dL (80-110); HEMOLYSIS < 15 (0-50); Potassium 3.5 mmol/L (3.4-5.1); Sodium 140 mmol/L (137-145)
[2020-11-21] MEDS: ASPIRIN EC 81 MG TABLET PO (08:25)
[2020-11-21] MEDS: DOCUSATE 100 MG CAPSULE PO (08:25)
[2020-11-21] MEDS: CEFTRIAXONE 2 GM/50 ML FROZ.PIGGY IV (08:26)
[2020-11-21] MEDS: INSULIN ASPART 100 UNIT/ML INSULN PEN SUBCUT ×3 (08:26→17:51)
[2020-11-21] MEDS: POTASSIUM CHLORIDE 20 MEQ TAB 40 MEQ PO (09:56)
[2020-11-21] MEDS: FUROSEMIDE 40 MG/4 ML VIAL IV (09:56)
[2020-11-21] MEDS: VANCOMYCIN 1,500 MG/300 ML PIGGYBACK 200 MG IV (10:08)
[2020-11-21] MEDS: AZITHROMYCIN 500 MG in DEXTROSE 5% IN WATER 250 ML IV (12:09)
--- NOTE | 2020-11-21 12:15 | PT-IP ANOTE ---
Jimmie is feeling too tired to do therapy at this time. He agrees to try later today. He uses a 4WW at home and does not like the fWW. Asked pt to have his Daughter bring his 4WW from home to use during therapy. Pt currently up in recliner and waiting on lunch.
--- NOTE | 2020-11-21 12:23 | CM.DPC ---
DCP: continued: case received, EMR reviewed and met with prior and during Team Rounds. Pt will see PT/OT today and his daughter will bring in his FWW. Pt confirms he lives with daughter Liza and her boyfriend Allen. He has never had HH services. Dr. Phillips stated in Rounds that pt was still short of breath and RT is following for ? need home 02. He will remain in hospital until at least tomorrow. Will also look to see what PT/OT recommend. Admission status: INPT: confirmed by [facility] RN team. Payer: Medicare.
--- NOTE | 2020-11-21 15:34 | PT.IIE ---
Current Diagnoses Unspecified bacterial pneumonia (11/20/20) Surgical History (Last Updated 11/20/20 @ 06:25 by SHARMIN Ferraro) History of arthroscopic knee surgery History of cholecystectomy Medical History (Last Updated 11/20/20 @ 06:25 by SHARMIN Ferraro) Bilateral lower extremity edema Colon cancer Current use of nursing home anticoagulation Diabetes DVT (deep venous thrombosis) Emphysema lung GERD (gastroesophageal reflux disease) History of pulmonary embolus (PE) Tremor Venous stasis dermatitis Physical Therapy Inpatient Evaluation/Re-Eval M1 PT/OT-IP Prior Functional Status Start: 11/21/20 11:31 Freq: NEEDED Status: Active Protocol: Document 11/21/20 15:34 DLM (Rec: 11/21/20 15:58 DLM [id number]) Medical Review Prior Functional Status Medical History Reviewed Yes Diet/Fluid Consistency Regular Communication WNL, glasses Mobility and Gait he ambulates short distances in the house with 4WW, he uses a wheelchair for longer distances and when not feeling well, he reports the wheelchair does not fit through his doors, he got a narrower WC that will fit through doors but it is very tight for him so he leaves it the car and only uses is for appointments Activities of Daily Living and IADL's gets dressed on his own, has help for meals, Daughter does chores and drives him to appointments Prior Functional Level (Other details) sleeps on two pillows, has an oxygen concentrator that he bought but only intermittent use of oxygen at home in the past Social History Household Members children Living Arrangements House Number of Floors (Floors) One Floor Number of Stairs To Enter/Railing? ramp Home Environment High Toilet,Walk in Shower Home Equipment Four Wheel Walker,Manual Wheelchair,Grab Bars Near Toilet,Grab Bars In Shower Additional Social History Comment has been attending out-pt wound care for his LE edema M2 PT-IP Current Condition Start: 11/21/20 11:31 Freq: NEEDED Status: Active Protocol: Document 11/21/20 15:34 DLM (Rec: 11/21/20 15:58 DLM [id number]) Physical Therapy Current Condition Current Condition Evaluation Date 11/21/20 Treatment Diagnosis Respiratory failure, PNA, impaired mobility Onset Date 11/20/20 Precautions Other Precautions monitor oxygen needs M3 PT-IP Subjective Start: 11/21/20 11:31 Freq: NEEDED Status: Active Protocol: Document 11/21/20 15:34 DLM (Rec: 11/21/20 15:58 DL [id number]) Subjective Physical Therapy Visit Type Type Initial Evaluation Visit Start Time 15:00 Visit Stop Time 15:34 Total Visit Minutes 34 Number of CHIEF LIBRARIAN MUSIC DEPARTMENT Visits 0 Physical Therapy Visit Comments Patient Comments he reports he feels aweful Patient Goals discharge home with assistance from his family Therapy Pain Assessment Pain When Pain Assessed At Rest Pain Present Pain Present Denied Pain M4 PT-IP Mobility and Gait Start: 11/21/20 11:31 Freq: NEEDED Status: Active Protocol: Document 11/21/20 15:34 DLM (Rec: 11/21/20 15:58 DL [id number]) PT-Bed Mobility Assessment Sit to Supine Sit to Supine Standby Assistance Scooting Scooting to Edge of Bed Standby Assistance Scooting Up and Down in Bed Standby Assistance PT-Transfer Assessment Sit to and From Stand Sit to and from Stand Minimal Assistance,Use of Upper Extremities Equipment Transfer Assistive Device Gait Belt,Front Wheeled Walker Transfers Transfer Destination Chair Transfer Technique Stand Step Pivot Transfer Ability Level of Assist Minimal Assistance,Use of Upper Extremities Comments Mobility Comments pt has been up in recliner, returned to bed at this time, stood with fWW at edge of bed couple of minutes before getting too fatigued and needing to sit, pt does not like to use the FWW and asks his Daughter to help hold it during sit-stand to manage his fear of it (he uses a 4WW at home) Gait Assessment Comments Gait Comments he reports feeling too tired and weak to try to walk, mild tremors PT-Balance Assessment Sitting Balance and Reactions Static Sitting Balance Ability Good Standing Balance and Reactions Static Standing Balance Ability Fair Dynamic Standing Balance Ability Fair Device Used FWW M5 PT-IP Objective Assessments Start: 11/21/20 11:31 Freq: NEEDED Status: Active Protocol: Document 11/21/20 15:34 DLM (Rec: 11/21/20 15:58 DL [id number]) Orientation Orientation/Cognition Level of Alertness Alert Orientation Name,Age,Birthday,Month,Date, Year,Day of Week,Place, Situation Gross Range of Motion Upper Extremity ROM Assessment Within Functional Limits Lower Extremity ROM Assessment Within Functional Limits Impairments mild stiffness at ankles with dorsiflexion to neutral only Strength Upper Extremity Strength Assessment Bilaterally Impaired Shoulder generalized weakness Lower Extremity Strength Assessment Bilaterally Impaired Hip hip flexion 3+/5 Knee 4/5 Ankle DF/PF 0/5 bilaterally Coordination Assessment Gross Coordination Gross Coordination Impaired Assessment Coordination Comments mild to moderate tremors that he reports varies during the day Sensation Assessment Sensation Gross Sensation Right LE Impaired,Left LE Impaired Sensation Description Numbness Comments Sensation Comments hx neuropathy below knees bilaterally Muscle Tone Muscle Tone WNL Yes Other Assessments Other Other Assessments pt using 2.5 LPM of oxygen at this time. O2 sats at rest are 94% but with any activity he drops into the 80's with increased respiratory rate M7 PT-IP Assessment and Plan Start: 11/21/20 11:31 Freq: NEEDED Status: Active Protocol: Document 11/21/20 15:34 DLM (Rec: 11/21/20 15:58 DLM [id number]) PT Summary Assessment and Plan Potential Rehabilitation Potential Good Status of Condition at Evaluation Evolving Summary Impairments Strength,Balance,Coordination, Sensation,Bed Mobility, Transfers,Gait,Activity Tolerance Assessment Summary Jimmie reports he is not feeling well this afternoon. He appears sweaty. He has been sitting up in the recliner. Transfered him back to bed with one person assist and fWW . He has mild to mod tremors at this time. He is alert and shows good participation in therapy but his activity tolerance is very low. His oxygen level desats with 2.5 LPM of oxygen with activity. He reports his shortness of breath is better than it was at home before his admission. He repors he wants to return home at discharge. He believes his family will be able to assist him as needed. Will work towards his goal of discharging home. He is below his baseline for mobility and gait. Goals Bed Mobility Goal Independent Transfer Goal Independent,Front Wheeled Walker,Four Wheeled Walker Gait Goal Standby Assistance,Front Wheel Walker,Four Wheel Walker Gait Distance 50 feet Days to Meet Goals 5 Frequency of Treatment Frequency Of Treatment Once a Day Treatment Plan Physical Therapy Treatment Plan Bed Mobility Training,Transfer Training,Gait Training, Therapeutic Exercise,Balance Retraining,Discharge Planning, Neuromuscular Re-ed, Coordination Retraining Recommendations To Nursing Amount of Assist Needed 1 Person Assist Discharge Recommendations PT Discharge Recommendations Home with 24/7 Assist Available,Home Health Other Discharge Recommendations family is able to provide 24/7 assist per pt Transportation Needs at Discharge Private Vehicle
[2020-11-21] MEDS: MAG HYDROX/ALUM/SIMETH 30 ML UDC PO (15:41)
--- NOTE | 2020-11-21 16:14 | OT.IPNOTE ---
Attempted OT eval with pt and pt states too tired and not having energy to try OT eval at this time. To try OT eval tomorrow.
--- NOTE | 2020-11-21 17:54 | PM.PN.1 ---
Subjective Subjective Interval history: This morning he is still feeling short of breath. His oxygen requirement has decreased to 2-3L. Otherwise he is feeling improved, but fatigued. Exam Vital Signs (past 8 hours): - 11/21/20 10:11 11/21/20 10:41 11/21/20 12:01 Temperature 97.4 F L Pulse Rate 68 97 H Respiratory Rate 18 18 Blood Pressure 133/72 Pulse Oximetry 92 92 91 11/21/20 13:39 11/21/20 13:40 11/21/20 15:20 Temperature 98.5 F Pulse Rate 62 Respiratory Rate 20 18 Blood Pressure 134/72 Pulse Oximetry 87 L 93 92 Oxygen Delivery Method Nasal Cannula Oxygen Flow Rate 3 Narrative Exam Narrative: GENERAL APPEARANCE: mild respiratory distress HEENT: Normocephalic, PERRLA, conjunctiva clear, EOMs intact without nystagmus, mucous membranes are moist and pink. NECK/THYROID: neck supple, no JVD, trachea midline. SKIN: [place], warm and dry, venous stasis dermatitis bilateral lower extremities HEART: regular rate and rhythm, S1-S2, no murmur, no rubs or gallops, brisk capillary refill, 2+ edema lower extremities LUNGS: improved lung sound bilaterally, mild left crackles at base ABDOMEN: Soft, no abdominal tenderness,no organomegaly, no flank or suprapubic tenderness, active bowel tones. 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 PSYCH: Good eye contact cooperative, appropriate with stable behavior Objective Labs Result Diagrams: 11/21/20 04:55 11/21/20 04:55 Labs: Laboratory Results - last 24 hr 11/19/20 11/19/20 11/21/20 21:10 22:10 04:55 WBC RBC Hgb Hct MCV MCH MCHC RDW Plt Count PT 32.5 H D INR 2.9 H Sodium Potassium Chloride Carbon Dioxide BUN Creatinine Estimated GFR BUN/Creatinine Ratio Glucose Calcium Total Creatine Kinase 119 CK-MB (CK-2) 1.13 CK-MB (CK-2) Rel Index 0.9 L Troponin I 0.020 NT-Pro-B Natriuret Pep 1150 H Procalcitonin 0.10 A. baumannii (PCR) Not detected Adelina albicans (PCR) Not detected C. glabrata (PCR) Not detected C. krusei (PCR) Not detected C. parapsilosis (PCR) Not detected C. tropicalis (PCR) Not detected Enterobacteriac sp PCR Not detected E. cloacae complex PCR Not detected Enterococcus sp PCR Not detected E. coli (PCR) Not detected H. influenzae (PCR) Not detected Klebsiella oxytoca PCR Not detected Klebsiella pneumoniae Not detected List. monocytogenes PCR Not detected N. meningitidis (PCR) Not detected Proteus species (PCR) Not detected Serratia marcescens PCR Not detected Staphylococcus sp PCR Detected H Staph aureus (PCR) Not detected mecA-Methicil Res Gene Detected H Streptococcus sp PCR Not detected Group A Strep (PCR) Not detected Strep agalactiae (PCR) Not detected Strep pneumoniae (PCR) Not detected P. aeruginosa (PCR) Not detected Wilmer/B-Vanco Res Genes Not Reportable KPC-Carbap Res Gene PCR Not Reportable 11/21/20 11/21/20 04:55 04:55 WBC 6.4 RBC 3.43 L Hgb 11.0 L Hct 33.5 L MCV 97.5 MCH 32.1 MCHC 32.9 RDW 14.0 Plt Count 218 PT INR Sodium 140 Potassium 3.5 D Chloride 107 Carbon Dioxide 27 BUN 22 H Creatinine 0.82 Estimated GFR > 60.0 BUN/Creatinine Ratio 26.8 H Glucose 161 H D Calcium 8.5 Total Creatine Kinase CK-MB (CK-2) CK-MB (CK-2) Rel Index Troponin I NT-Pro-B Natriuret Pep Procalcitonin A. baumannii (PCR) Adelina albicans (PCR) C. glabrata (PCR) C. krusei (PCR) C. parapsilosis (PCR) C. tropicalis (PCR) Enterobacteriac sp PCR E. cloacae complex PCR Enterococcus sp PCR E. coli (PCR) H. influenzae (PCR) Klebsiella oxytoca PCR Klebsiella pneumoniae List. monocytogenes PCR N. meningitidis (PCR) Proteus species (PCR) Serratia marcescens PCR Staphylococcus sp PCR Staph aureus (PCR) mecA-Methicil Res Gene Streptococcus sp PCR Group A Strep (PCR) Strep agalactiae (PCR) Strep pneumoniae (PCR) P. 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 Diabetes DVT (deep venous thrombosis) Emphysema lung GERD (gastroesophageal reflux disease) History of pulmonary embolus (PE) Tremor Venous stasis dermatitis Surgical History (Updated 11/20/20 @ 06:25 by SHARMIN Ferraro) History of arthroscopic knee surgery History of cholecystectomy Family History (Updated 11/20/20 @ 06:26 by SHARMIN Ferraro) Father Heart attack Mother Heart attack Brother Heart attack Sister Diabetes mellitus Social History household members: children Smoking Status: Former smoker alcohol intake: former Assessment & Plan Assessment & Plan narrative: 85-year-old male patient with a past medical history significant for diabetes type 2, GERD, history of multiple PEs, chronic lower extremity edema on Lasix who presents to the ER via EMS with complaints of shortness of breath for 3 days complaining of associated fevers, rigors and chills, worsening dyspnea with activity. 1. Acute on chronic respiratory failure with hypoxia, multifactorial, acute, present on admission, active. -the patient presents with acute dyspnea with respiratory rate of 28 requiring 4 L of oxygen to maintain a saturation 93%. Now improved and down to 2-3L oxygen -cause of shortness of breath include: Congestive heart failure evidence by elevated proBNP at 1150 bilateral extremity swelling with chest x-ray identifying increased interstitial prominence. COPD, evidence by CT of the chest identifying moderate to severe emphysema. Pneumonia, evidence by fevers, rigors and chills, procalcitonin of 0.[address] identifying bronchial thickening. -requested RT to consult evaluate and treat. 2. Acute on chronic congestive heart failure with preserved ejection fraction, present on admission, active. -proBNP is 1150. Troponin is 0.020. Chest x-ray identifies interstitial prominence. -most recent echocardiogram on 09/19/2020 describes increased LV wall thickness, concentric, EF of 50-55% and and repeat is similar -the patient received Lasix 40 mg IV in the emergency department with diuresis of 1 L. will continue Lasix 40 mg IV daily. 3. Hypokalemia, acute, present on admission, resolved -initial labs find potassium of 3.0 and the patient subsequently received Lasix 40 mg IV. -repleted with oral potassium 4. COPD, emphysema, chronic, active. -patient describes episodic difficulty breathing for which he purchased an oxygen concentrator that he will use on an as-needed basis. The patient reports using his oxygen for last 3 days. -requested RT to consult evaluate and treat. -ordered albuterol Atrovent nebulizer twice daily and albuterol MDI every 2 hours as needed. -add prednisone for probable copd exacerbation 5. Community-acquired pneumonia, probable bacterial acute, active. -patient reports fevers, rigors and chills at home presents with a temperature of 99.6? upon arrival the ER. He has bibasilar opacities on chest x-ray. -ordered Rocephin 2 g daily and azithromycin 500 mg daily for 3 days. 6. Atrial fibrillation, probable paroxysmal, present on admission, stable. -12 lead EKG finds atrial fibrillation with a rate of 104 without ectopy, left axis shift and left bundle branch block. Previous tracings identify sinus rhythm. -on telemetry the patient is going in and out of atrial fibrillation helping a sinus mechanism with a biphasic P wave consistent with left atrial enlargement. -will continue anticoagulation with warfarin 5 mg daily and check PT and INR. 7. Diabetes type 2, uncontrolled, chronic, stable -patient previously on metformin but was intolerant to side effects. -He is noncompliant with a diabetic diet request dietitian consult. -ordered fingerstick blood sugars a.c. and hs, coverage with low-dose correctional insulin. VTE prophylaxis: Enoxaparin IV fluid: Saline lock Diet: Small consistent carbohydrate Code status: DO NOT RESUSCITATE, the patient designates his daughter to be his surrogate decision maker.
[2020-11-21] MEDS: WARFARIN 1 MG TABLET 3 MG PO (18:28)
[2020-11-21] MEDS: ACETAMINOPHEN 325 MG TABLET 650 MG PO (23:59)
[2020-11-22] VITALS (7 sets, daily range): BP systolic 100–146; BP diastolic 60–80; PULSE 53–83; RESP 16–20; TEMP 36.1–37; O2SAT 93–97
[2020-11-22 05:19] LABS: Hematocrit 35.6 % (41-53); Hemoglobin 11.6 g/dL (13.5-17.5); Mean Corpuscular HGB Conc 32.7 % (30-36); Mean Corpuscular Hemoglobin 31.8 PG (26-34); Mean Corpuscular Volume 97.3 fL (80-100); Platelet Count 263 X10^3/uL (150-400); Red Blood Cell Count 3.66 X10^6/uL (4.5-5.9); Red Cell Distribution Width 13.7 % (11.6-14.8); White Blood Cell Count 7.3 X10^3/uL (4.5-11.0)
[2020-11-22 05:44] LABS: BUN Creatinine Ratio 26.2 (6-22); Blood Urea Nitrogen 22 mg/dL (9-20); Calcium 8.5 mg/dL (8.4-10.2); Carbon Dioxide 27 mmol/L (22-32); Chloride 105 mmol/L (98-107); Estimated Glomerular Filt Rate > 60.0 mL/min (>60); Glucose 150 mg/dL (80-110); HEMOLYSIS < 15 (0-50); Potassium 4.3 mmol/L (3.4-5.1); Sodium 138 mmol/L (137-145)
[2020-11-22] MEDS: predniSONE 20 MG TABLET 40 MG PO (08:42)
[2020-11-22] MEDS: FUROSEMIDE 40 MG/4 ML VIAL IV (08:42)
[2020-11-22] MEDS: ASPIRIN EC 81 MG TABLET PO (08:42)
[2020-11-22] MEDS: DOCUSATE 100 MG CAPSULE PO (08:42)
[2020-11-22] MEDS: INSULIN ASPART 100 UNIT/ML INSULN PEN SUBCUT ×3 (08:43→16:19)
[2020-11-22] MEDS: ACETAMINOPHEN 325 MG TABLET 650 MG PO (09:03)
[2020-11-22] MEDS: CEFTRIAXONE 2 GM/50 ML FROZ.PIGGY IV (09:04)
[2020-11-22] MEDS: AZITHROMYCIN 500 MG in DEXTROSE 5% IN WATER 250 ML IV (10:10)
--- NOTE | 2020-11-22 10:38 | PT.IPTN ---
Current Diagnoses Unspecified bacterial pneumonia (11/20/20) Physical Therapy Treatment Note M2 PT-IP Current Condition Start: 11/21/20 11:31 Freq: NEEDED Status: Active Protocol: Document 11/21/20 15:34 DLM (Rec: 11/21/20 15:58 DLM [id number]) Physical Therapy Current Condition Current Condition Evaluation Date 11/21/20 Treatment Diagnosis Respiratory failure, PNA, impaired mobility Onset Date 11/20/20 Precautions Other Precautions monitor oxygen needs M3 PT-IP Subjective Start: 11/21/20 11:31 Freq: NEEDED Status: Active Protocol: Document 11/22/20 10:38 AB (Rec: 11/22/20 13:43 AB [id number]) Subjective Physical Therapy Visit Type Type Treatment Note Visit Start Time 10:38 Visit Stop Time 11:12 Total Visit Minutes 34 Number of CLOTH [employer] SUPERVISOR Visits 0 Physical Therapy Visit Comments Patient Comments pt is agreeable to do PT M4 PT-IP Mobility and Gait Start: 11/21/20 11:31 Freq: NEEDED Status: Active Protocol: Document 11/22/20 10:38 AB (Rec: 11/22/20 13:43 AB [id number]) PT-Bed Mobility Assessment Supine to Sit Supine to Sit Minimal Assistance,Head of Bed Elevated,Bedrails PT-Transfer Assessment Sit to and From Stand Sit to and from Stand Contact Guard Assistance, Minimal Assistance,1 Person Assistance,Use of Upper Extremities Equipment Transfer Assistive Device Gait Belt,4 Wheeled Walker Orthotic/Prosthetic Devices or Brace: No Transfers Transfer Destination Chair Transfer Technique ambulated using 4WW Transfer Ability Level of Assist Contact Guard Assistance,1 Person Assistance,Use of Upper Extremities Comments Mobility Comments pt complete supine to sit min A and cues. HOB slightly elevated and pt used bed rail. pt required increase time to complete task and stated that his bed at home is better. pt was able to sit on EOB SBA. completed sit to stand CGA to min A and ambulated using 4WW towards the chair CGA. presents with bilateral foot drop with pt neede to increase hip/knee elevation for clearance off the floor. pt sat on chair. completed another sit to stand from the chair CGA to straighten cushion/pad. positioned pt on chair. call light and table placed within reach. left pt with NAC and spouse in room. O2 sat with 4L/min O2 prior to activity 93-94%. decreased to 76% after ambulation and cued for deep breathing. O2 sat increased to 90% after ~ 15 sec. O2 sat decreased to 86-88% after sit to stand from chair. cued for deep breathing again. left pt with O2 sat at 90% with 4L/min O2. Gait Assessment Gait Gait Assistance Required: Contact Guard Assist,1 Person Assist Distance (Feet) 12 Able to Maintain Weight Bearing Status Yes During Gait Assistive Devices Assistive Device Gait Belt,4 Wheeled Walker Orthotic/Prosthetic Devices or Brace: No Gait Deviations General Gait Pattern Decreased Stride Length, Decreased Feet Clearance,Step- to Gait Factors Limiting Gait Function Factors Limiting Gait Function Decreased Activity Tolerance, Decreased Strength,Poor Balance,Poor Safety Awareness, Respiratory Distress M5 PT-IP Objective Assessments Start: 11/21/20 11:31 Freq: NEEDED Status: Active Protocol: Document 11/21/20 15:34 DLM (Rec: 11/21/20 15:58 DLM [id number]) Orientation Orientation/Cognition Level of Alertness Alert Orientation Name,Age,Birthday,Month,Date, Year,Day of Week,Place, Situation Gross Range of Motion Upper Extremity ROM Assessment Within Functional Limits Lower Extremity ROM Assessment Within Functional Limits Impairments mild stiffness at ankles with dorsiflexion to neutral only Strength Upper Extremity Strength Assessment Bilaterally Impaired Shoulder generalized weakness Lower Extremity Strength Assessment Bilaterally Impaired Hip hip flexion 3+/5 Knee 4/5 Ankle DF/PF 0/5 bilaterally Coordination Assessment Gross Coordination Gross Coordination Impaired Assessment Coordination Comments mild to moderate tremors that he reports varies during the day Sensation Assessment Sensation Gross Sensation Right LE Impaired,Left LE Impaired Sensation Description Numbness Comments Sensation Comments hx neuropathy below knees bilaterally Muscle Tone Muscle Tone WNL Yes Other Assessments Other Other Assessments pt using 2.5 LPM of oxygen at this time. O2 sats at rest are 94% but with any activity he drops into the 80's with increased respiratory rate M6 PT-IP Treatment Start: 11/21/20 11:31 Freq: NEEDED Status: Active Protocol: Document 11/22/20 10:38 AB (Rec: 11/22/20 13:43 AB [email or web address]) Physical Therapy Treatment Education Education Provided Safety M7 PT-IP Assessment and Plan Start: 11/21/20 11:31 Freq: NEEDED Status: Active Protocol: Document 11/22/20 10:38 AB (Rec: 11/22/20 13:43 AB [email or web address]) PT Summary Assessment and Plan Potential Rehabilitation Potential Fair Summary Impairments Pain,ROM,Strength,Balance, Coordination,Sensation,Tone, Cognition,Bed Mobility, Transfers,Gait,Activity Tolerance Progress Towards Goals Slow Progress due to Medical Issues,Slow Progress due to Activity Tolerance Assessment Summary pt requiring CGA to min A with mobility using 4WW. O2 sat decreased to 76% with 4L/min O2 after ambulation and cued for deep breathing. pt has decrease activity tolerance affecting mobility independence. pt plans to go home with family to assist him . Goals Bed Mobility Goal Independent Transfer Goal Independent,Front Wheeled Walker,Four Wheeled Walker Gait Goal Standby Assistance,Front Wheel Walker,Four Wheel Walker Gait Distance 50 feet Days to Meet Goals 5 Frequency of Treatment Frequency Of Treatment Once a Day Treatment Plan Physical Therapy Treatment Plan Bed Mobility Training,Transfer Training,Gait Training, Therapeutic Exercise,Balance Retraining,Discharge Planning, Neuromuscular Re-ed, Coordination Retraining Recommendations To Nursing Amount of Assist Needed 1 Person Assist Discharge Recommendations PT Discharge Recommendations Home with 24/7 Assist Available,Home Health Other Discharge Recommendations family is able to provide 24/7 assist per pt Transportation Needs at Discharge Private Vehicle
[2020-11-22 12:12] LABS: BUN Creatinine Ratio 24.2 (6-22); Blood Urea Nitrogen 22 mg/dL (9-20); Calcium 8.9 mg/dL (8.4-10.2); Carbon Dioxide 25 mmol/L (22-32); Chloride 100 mmol/L (98-107); Estimated Glomerular Filt Rate > 60.0 mL/min (>60); Glucose 266 mg/dL (80-110); HEMOLYSIS < 15 (0-50); Potassium 4.1 mmol/L (3.4-5.1); Sodium 136 mmol/L (137-145)
[2020-11-22 12:13] LABS: Magnesium 1.9 mg/dL (1.6-2.3)
[2020-11-22 12:24] LABS: Troponin I 0.013 ng/mL (0.01-0.034)
--- NOTE | 2020-11-22 14:21 | PM.PN.1 ---
Subjective Subjective Interval history: This morning he states he feels like going home. However he remains short of breath and on 4L oxygen. He had an episode of NSVT, asymptomatic, that resolved. Labs showed slightly low magnesium which is being repleted. Exam Vital Signs (past 8 hours): - 11/22/20 07:56 11/22/20 11:16 Temperature 97.4 F L 96.9 F L Pulse Rate 83 59 L Respiratory Rate 18 20 Blood Pressure 132/80 100/74 Pulse Oximetry 93 94 Oxygen Delivery Method Nasal Cannula,Humidification Oxygen Flow Rate 4 Narrative Exam Narrative: GENERAL APPEARANCE: mild respiratory distress HEENT: Normocephalic, PERRLA, conjunctiva clear, EOMs intact without nystagmus, mucous membranes are moist and pink. NECK/THYROID: neck supple, no JVD, trachea midline. SKIN: [place], warm and dry, venous stasis dermatitis bilateral lower extremities HEART: regular rate and rhythm, S1-S2, no murmur, no rubs or gallops, brisk capillary refill, 2+ edema lower extremities LUNGS: improved lung sound bilaterally, mild left crackles at base ABDOMEN: Soft, no abdominal tenderness,no organomegaly, no flank or suprapubic tenderness, active bowel tones. 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 PSYCH: Good eye contact cooperative, appropriate with stable behavior Objective Labs Result Diagrams: 11/22/20 05:00 11/22/20 11:40 Labs: Laboratory Results - last 24 hr 11/22/20 11/22/20 11/22/20 05:00 05:00 11:40 WBC 7.3 RBC 3.66 L Hgb 11.6 L Hct 35.6 L MCV 97.3 MCH 31.8 MCHC 32.7 RDW 13.7 Plt Count 263 Sodium 138 136 L Potassium 4.3 4.1 Chloride 105 100 Carbon Dioxide 27 25 BUN 22 H 22 H Creatinine 0.84 0.91 Estimated GFR > 60.0 > 60.0 BUN/Creatinine Ratio 26.2 H 24.2 H Glucose 150 H 266 H D Calcium 8.5 8.9 Magnesium 2.0 Troponin I 11/22/20 11:40 WBC RBC Hgb Hct MCV MCH MCHC RDW Plt Count Sodium Potassium Chloride Carbon Dioxide BUN Creatinine Estimated GFR BUN/Creatinine Ratio Glucose Calcium Magnesium 1.9 Troponin I 0.013 [facility] Medical History (Updated 11/20/20 @ 06:25 by SHARMIN Ferraro) Bilateral lower extremity edema Colon cancer Current use of correction anticoagulation Diabetes DVT (deep venous thrombosis) Emphysema lung GERD (gastroesophageal reflux disease) History of pulmonary embolus (PE) Tremor Venous stasis dermatitis Surgical History (Updated 11/20/20 @ 06:25 by SHARMIN Ferraro) History of arthroscopic knee surgery History of cholecystectomy Family History (Updated 11/20/20 @ 06:26 by SHARMIN Ferraro) Father Heart attack Mother Heart attack Brother Heart attack Sister Diabetes mellitus Social History household members: children Smoking Status: Former smoker alcohol intake: former Assessment & Plan Assessment & Plan narrative: 85-year-old male patient with a past medical history significant for diabetes type 2, GERD, history of multiple PEs, chronic lower extremity edema on Lasix who presents to the ER via EMS with complaints of shortness of breath for 3 days complaining of associated fevers, rigors and chills, worsening dyspnea with activity. 1. Acute on chronic respiratory failure with hypoxia, multifactorial, acute, present on admission, active. -the patient presents with acute dyspnea with respiratory rate of 28 requiring 4 L of oxygen to maintain a saturation 93%. -cause of shortness of breath include: Congestive heart failure evidence by elevated proBNP at 1150 bilateral extremity swelling with chest x-ray identifying increased interstitial prominence. COPD exacerbation acute, evidence by CT of the chest identifying moderate to severe emphysema. Pneumonia, evidence by fevers, rigors and chills, procalcitonin of 0.[address] identifying bronchial thickening. -requested RT to consult evaluate and treat. 2. Acute on chronic congestive heart failure with preserved ejection fraction, present on admission, active. -proBNP is 1150. Troponin is 0.020. Chest x-ray identifies interstitial prominence. -recent echocardiogram on 09/19/2020 describes increased LV wall thickness, concentric, EF of 50-55% and and repeat is similar -the patient received Lasix 40 mg IV in the emergency department with diuresis of 1 L. will continue Lasix 40 mg IV daily. 3. Hypokalemia, acute, present on admission, resolved -initial labs find potassium of 3.0 and the patient subsequently received Lasix 40 mg IV. -repleted with oral potassium 4. COPD, emphysema, chronic, active. -patient describes episodic difficulty breathing for which he purchased an oxygen concentrator that he will use on an as-needed basis. The patient reports using his oxygen for last 3 days. -requested RT to consult evaluate and treat. -ordered albuterol Atrovent nebulizer twice daily and albuterol MDI every 2 hours as needed. -add prednisone for probable copd exacerbation 5. Community-acquired pneumonia, probable bacterial acute, active. -patient reports fevers, rigors and chills at home presents with a temperature of 99.6? upon arrival the ER. He has bibasilar opacities on chest x-ray. -ordered Rocephin 2 g daily and azithromycin 500 mg daily for 3 days. 6. Atrial fibrillation, probable paroxysmal, present on admission, stable. -12 lead EKG finds atrial fibrillation with a rate of 104 without ectopy, left axis shift and left bundle branch block. Previous tracings identify sinus rhythm. -on telemetry the patient is going in and out of atrial fibrillation helping a sinus mechanism with a biphasic P wave consistent with left atrial enlargement. -will continue anticoagulation with warfarin 5 mg daily and check PT and INR. 7. Diabetes type 2, uncontrolled, chronic, stable -patient previously on metformin but was intolerant to side effects. -He is noncompliant with a diabetic diet request dietitian consult. -ordered fingerstick blood sugars a.c. and hs, coverage with low-dose correctional insulin. VTE prophylaxis: Enoxaparin IV fluid: Saline lock Diet: Small consistent carbohydrate Code status: DO NOT RESUSCITATE, the patient designates his daughter to be his surrogate decision maker.
--- NOTE | 2020-11-22 14:44 | OT.IP.EVAL ---
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 anticoagulation Diabetes DVT (deep venous thrombosis) Emphysema lung GERD (gastroesophageal reflux disease) History of pulmonary embolus (PE) Tremor Venous stasis dermatitis Surgical History (Last Updated 11/20/20 @ 06:25 by SHARMIN Ferraro) History of arthroscopic knee surgery History of cholecystectomy Occupational Therapy Inpatient Evaluation/Re-Eval M1 PT/OT-IP Prior Functional Status Start: 11/22/20 15:47 Freq: NEEDED Status: Active Protocol: Document 11/22/20 13:35 [facility] (Rec: 11/22/20 16:12 [facility] [id number]) Medical Review Prior Functional Status Medical History Reviewed Yes Diet/Fluid Consistency Regular Communication WNL, glasses Mobility and Gait he ambulates short distances in the house with 4WW, he uses a wheelchair for longer distances and when not feeling well, he reports the wheelchair does not fit through his doors, he got a narrower WC that will fit through doors but it is very tight for him so he leaves it the car and only uses is for appointments Activities of Daily Living and IADL's gets dressed on his own, has help for meals, Daughter does chores and drives him to appointments. Pt's daughter assist with his compression stocking and socks. Prior Functional Level (Other details) sleeps on two pillows, has an oxygen concentrator that he bought but only intermittent use of oxygen at home in the past Social History Household Members children Living Arrangements House Number of Floors (Floors) One Floor Number of Stairs To Enter/Railing? ramp Home Environment High Toilet,Walk in Shower Home Equipment Four Wheel Walker,Manual Wheelchair,Shower Seat with Backrest,Grab Bars Near Toilet ,Grab Bars In Shower Additional Social History Comment has been attending out-pt wound care for his LE edema M2 OT-IP Current Condition Start: 11/22/20 15:47 Freq: Status: Active Protocol: Document 11/22/20 13:35 [facility] (Rec: 11/22/20 16:12 [facility] [id number]) Occupational Therapy Current Condition Current Condition Evaluation Date 11/22/20 Treatment Diagnosis Acute on chronic respiratory failure with hypoxia, PNA, decreased activity Diagnosis Onset Date 11/20/20 Post Operative Precautions Other Precautions Per pt states per wound care not able to wash his leg wounds with city water and has to use distilled water. M3 OT- IP Subjective and Pain Start: 11/22/20 15:47 Freq: Status: Active Protocol: Document 11/22/20 13:35 [facility] (Rec: 11/22/20 16:12 [facility] [id number]) OT- Subjective Occupational Therapy Visit Type Type Initial Evaluation Visit Start Time 13:35 Visit Stop Time 14:44 Total Visit Minutes 69 Occupational Therapy Visit Comments Patient Comments Pt wanting to shower. Patient/Caregiver Goals To go home. OT Pain Assessment Pain When Pain Assessed At Rest Pain Present Pain Present Denied Pain M4 OT- IP ADL's Start: 11/22/20 15:47 Freq: Status: Active Protocol: Document 11/22/20 13:35 [facility] (Rec: 11/22/20 16:12 [facility] [id number]) OT [id number] Comments OT Self-Feeding Comments NOt at meal time. OT ADL-Grooming Comments OT Grooming Comments NOt performed. OT ADL-Oral Care Comments Oral Care Comments NOt performed. OT ADL-Dressing General Eval Lower Body Dressing Ability Maximum Assistance Areas Needing Assistance Socks,Shoes,Support Stockings Comments OT Dressing Comments Pt needing assist for all LB dressing needs. OT ADL-Toileting Comments OT Toileting Comments Pt not having to toilet at the time as osuna just taken out. OT ADL-Bathing Bathing Type Bathing Type Shower General Evaluation Bathing Ability Moderate Assistance,Maximal Assistance Areas Needing Assistance Retrieving/Setting Up Items, Wash/Dry Back,Wash/Dry Lower Extremities Devices Bathing Equipment Shower Chair with Arms Comments OT Bathing Comments Having to cover LE bandages with plastic form keep form getting wet. Pt had another wound on his right LE and called nursing and came to clean and bandage his skin. Pt able to wash his body, arms, face and hair and needing assist for all other needs. Pt not aware would be best for his daughter to assist with showering especially when he is standing up. M5 OT- IP IADL's Start: 11/22/20 15:47 Freq: Status: Active Protocol: Document 11/22/20 13:35 [facility] (Rec: 11/22/20 16:12 [facility] [id number]) OT-Instrumental Activities of Daily Living Medication Management Medication Management Caregiver Administers Meal Preparation Meal Preparation Caregiver Provides Assist Boxcar Weigher Boxcar Weigher Caregiver Provides Assist M6 OT- IP Functional Cognition Start: 11/22/20 15:47 Freq: Status: Active Protocol: Document 11/22/20 13:35 [facility] (Rec: 11/22/20 16:12 [facility] [id number]) Cognitive Factors Limiting Selfcare Function Cognitive Ability Level of Alertness Alert Patient Orientation Name,Place,Situation Attention Span Ability Capable of Focused Attention, Capable of Sustained Attention Ability to Follow Commands Able to Follow One Step Commands Memory Description No Deficits Noted Safety Awareness Underestimates Need for Assistance Cognitive Comments Cognitive Assessment Comments Pt insists that he does not need to use the O2 on the shower. Pt finally agreed to use in the shower. Pt tends to joke around and therefore not sure if pt at baseline for cognitive needs. OT- Vision and Hearing OT- Hearing Assessment OT- Hearing Assessment WFL OT- Vision Assessment Visual Acuity Glasses All The Time M7 OT- IP Mobility and Balance Start: 11/22/20 15:47 Freq: Status: Active Protocol: Document 11/22/20 13:35 [facility] (Rec: 11/22/20 16:12 [facility] [id number]) OT-Transfer Assessment Sit to and From Stand Sit to and from Stand Contact Guard Assistance Transfers Transfer Ability Contact Guard Assistance, Minimal Assistance Technique Transfer Destination Bedside Commode,Chair,Shower Stall Transfer Technique Stand Step Pivot Devices Transfer Assistive Devices Gait Belt,4 Wheeled Walker Comments Mobility Comments CGA for balance and Darren to help step over the threshold of the shower with 4WW. OT- Balance Assessment Sitting Balance and Reactions Static Sitting Balance Ability Normal Dynamic Sitting Balance Ability Good Standing Balance and Reactions Static Standing Balance Ability Fair M8 OT- IP Objective Assessments Start: 11/22/20 15:47 Freq: Status: Active Protocol: Document 11/22/20 13:35 [facility] (Rec: 11/22/20 16:12 [facility] [id number]) OT Gross Range of Motion Upper Extremity Range of Motion Assessment Within Functional Limits OT Strength Upper Extremity Strength Assessment Within Functional Limits OT-Muscle Tone Assessment Muscle Tone WNL Yes M9 OT- IP Assessment and Plan Start: 11/22/20 15:47 Freq: Status: Active Protocol: Document 11/22/20 13:35 [facility] (Rec: 11/22/20 16:12 [facility] [id number]) OT Summary Assessment and Plan Potential Rehabilitation Potential Good Analytic Complexity at Evaluation Low Summary OT Impairments Balance,Functional Cognition, Functional Mobility,Grooming, Dressing,Toileting,Bathing, Toilet Transfers,Shower Transfers,Activity Tolerance Progress Towards Goals Progressing Toward Goals Assessment Summary Pt low complexity and here due to Acute respiratory failure and PNA. Pt's main barrier are decreased activity tolerance, balance, and needing extensive assist for LB dressing. Pt looking to go home with his daughter when medically stable. Pt would benefit from home health as well. Goals Grooming Goal Independent Dressing Goal Moderate Assistance Toileting Goal Independent Bathing Goal Moderate Assistance Toilet Transfer Goal Minimal Assistance Shower Transfer Goal Standby Assistance Patient/Caregiver Education Goal Demonstrate Energy Conservation and Pacing, Caregiver Independent Assisting Patient Days to Meet Goals 7 Frequency of Treatment Frequency Of Treatment Once a Day Treatment Plan OT Treatment Plan ADL Training,Functional Cognition Training,Functional Mobility,Patient/Family Education,Discharge Planning Other Treatment Recommendations and Next Standing ADl's at the sink, Treatment Focus energy conservation. Discharge Recommendations OT Discharge Recommendations Home with 08/03 Assist Available,Home Health Transportation Needs at Discharge Private Vehicle
--- NOTE | 2020-11-22 15:50 | PC.NURSE ---
Pt A&Ox3 this a.m. reports pain and pressure in bladder/ urethra from osuna catheter although draining adequately with good output. Per ok to D/C osuna. Remains on 4l NC, slight SOB with exertion. Noted to have poor appetite today. Shortly after lunch patient with asymptomatic run of Vtach on telemetry. MD notified and STAT labs ordered, BMP, MG, troponin and ekg 12 lead. 12 lead resulting in Sinus joan. Denies CP, dizziness, palpitations. Able to shower with OT this afternoon and tolerating well. Continuous monitoring
[2020-11-22] MEDS: MAGNESIUM SULFATE 2 GM/50 ML PIGGYBACK IV (16:02)
[2020-11-22] MEDS: WARFARIN 5 MG TABLET PO (16:23)
[2020-11-22 22:12] LABS: Bacteria Urine None Seen
[2020-11-22 22:13] LABS: Bilirubin Urine UA NEGATIVE (NEGATIVE); Color Urine UA YELLOW; Glucose Urine UA NEGATIVE (Negative); Ketones Urine UA NEGATIVE (NEGATIVE); Leukocyte Esterase Urine UA TRACE (NEGATIVE); Nitrite Urine UA NEGATIVE (Negative); Occult Blood Urine UA 3+ (Negative); Protein Urine UA TRACE (Negative); Specific Gravity Urine UA >=1.030 (1.000-1.035); Urobilinogen Urine UA 0.2 E.U./dL (0.2)
[2020-11-22 22:36] LABS: Appearance Urine UA Slightly Cloudy
[2020-11-22 23:31] LABS: RBC Urine 30-100/HPF (0-5/HPF); WBC Urine 1-5/HPF (0-5/HPF)
[2020-11-22 23:32] LABS: Culture Indicated Urine Specimen Cultured
[2020-11-23 00:16] VITALS: BP 141/69; PULSE 55; RESP 18; TEMP 36.6; O2SAT 91
[2020-11-23 03:54] VITALS: BP 115/78; PULSE 103; RESP 18; TEMP 36.7; O2SAT 92
[2020-11-23 06:25] LABS: Hematocrit 37.5 % (41-53); Hemoglobin 12.3 g/dL (13.5-17.5); Mean Corpuscular HGB Conc 32.9 % (30-36); Mean Corpuscular Hemoglobin 32.1 PG (26-34); Mean Corpuscular Volume 97.6 fL (80-100); Platelet Count 257 X10^3/uL (150-400); Red Blood Cell Count 3.84 X10^6/uL (4.5-5.9); Red Cell Distribution Width 13.8 % (11.6-14.8); White Blood Cell Count 7.5 X10^3/uL (4.5-11.0)
[2020-11-23 06:36] LABS: INR 2.9 (0.9-1.3)
[2020-11-23 06:37] LABS: BUN Creatinine Ratio 32.5 (6-22); Blood Urea Nitrogen 27 mg/dL (9-20); Calcium 8.5 mg/dL (8.4-10.2); Carbon Dioxide 29 mmol/L (22-32); Chloride 101 mmol/L (98-107); Estimated Glomerular Filt Rate > 60.0 mL/min (>60); Glucose 146 mg/dL (80-110); HEMOLYSIS 16 (0-50); Magnesium 2.5 mg/dL (1.6-2.3); Potassium 3.8 mmol/L (3.4-5.1); Sodium 139 mmol/L (137-145)
[2020-11-23 07:41] VITALS: PULSE 54; RESP 16; O2SAT 94
[2020-11-23 09:00] VITALS: BP 138/82; PULSE 94; RESP 20; TEMP 36.4; O2SAT 92
[2020-11-23] MEDS: INSULIN ASPART 100 UNIT/ML INSULN PEN SUBCUT ×2 (09:16→12:53)
[2020-11-23] MEDS: ASPIRIN EC 81 MG TABLET PO (09:18)
[2020-11-23] MEDS: FUROSEMIDE 20 MG TABLET PO (09:18)
[2020-11-23] MEDS: CEFTRIAXONE 2 GM/50 ML FROZ.PIGGY IV (09:18)
--- NOTE | 2020-11-23 09:55 | OT.IP.TRT ---
Current Diagnoses Unspecified bacterial pneumonia (11/20/20) Occupational Therapy Treatment Note M2 OT-IP Current Condition Start: 11/22/20 15:47 Freq: Status: Active Protocol: Document 11/22/20 13:35 [facility] (Rec: 11/22/20 16:12 [facility] [id number]) Occupational Therapy Current Condition Current Condition Evaluation Date 11/22/20 Treatment Diagnosis Acute on chronic respiratory fialure with hypoxia, PNA, decreased activity Diagnosis Onset Date 11/20/20 Post Operative Precautions Other Precautions Per pt states per wound care not able to wash his leg wounds with city water and has to use distilled water. M3 OT- IP Subjective and Pain Start: 11/22/20 15:47 Freq: Status: Active Protocol: Document 11/23/20 10:01 [facility] (Rec: 11/23/20 10:11 [facility] [id number]) OT- Subjective Occupational Therapy Visit Type Type Progress Note Visit Start Time 09:36 Visit Stop Time 09:55 Total Visit Minutes 19 Notes EKG waiting to see pt. Session limited d/t need for procedure. OT Pain Assessment Pain When Pain Assessed At Rest Pain Present Pain Present Denied Pain M4 OT- IP ADL's Start: 11/22/20 15:47 Freq: Status: Active Protocol: Document 11/23/20 10:01 [facility] (Rec: 11/23/20 10:11 [facility] [id number]) OT [id number] Comments OT Self-Feeding Comments Not meal time OT ADL-Grooming General Evaluation Grooming Ability Standby Assistance Areas Needing Assistance Face Washing Comments OT Grooming Comments seated in chair at sink OT ADL-Oral Care General Eval Oral Care Ability Minimal Assistance Areas of Assistance Brushing Teeth,Retrieving/Set- Up of Items Comments Oral Care Comments Pt needed assist getting top on and off of tooth paste OT ADL-Dressing Comments OT Dressing Comments Not performed OT ADL-Toileting Comments OT Toileting Comments Not performed, pt states that he just returned from toileting with nursing. OT ADL-Bathing Comments OT Bathing Comments Not performed M5 OT- IP IADL's Start: 11/22/20 15:47 Freq: Status: Active Protocol: Document 11/22/20 13:35 [facility] (Rec: 11/22/20 16:12 [facility] [id number]) OT-Instrumental Activities of Daily Living Medication Management Medication Management Caregiver Administers Meal Preparation Meal Preparation Caregiver Provides Assist Face Worker Face Worker Caregiver Provides Assist M6 OT- IP Functional Cognition Start: 11/22/20 15:47 Freq: Status: Active Protocol: Document 11/22/20 13:35 [facility] (Rec: 11/22/20 16:12 [facility] [id number]) Cognitive Factors Limiting Selfcare Function Cognitive Ability Level of Alertness Alert Patient Orientation Name,Place,Situation Attention Span Ability Capable of Focused Attention, Capable of Sustained Attention Ability to Follow Commands Able to Follow One Step Commands Memory Description No Deficits Noted Safety Awareness Underestimates Need for Assistance Cognitive Comments Cognitive Assessment Comments Pt insists that he does not need to use the O2 on the shower. Pt finally agreed to use in the shower. Pt tends to joke around and therefore not sure if pt at baseline for cognitive needs. OT- Vision and Hearing OT- Hearing Assessment OT- Hearing Assessment WFL OT- Vision Assessment Visual Acuity Glasses All The Time M7 OT- IP Mobility and Balance Start: 11/22/20 15:47 Freq: Status: Active Protocol: Document 11/23/20 10:01 [facility] (Rec: 11/23/20 10:11 [facility] [id number]) OT- Bed Mobility Assessment Sit to Supine Sit to Supine Assist Standby Assistance Scooting Scooting to Edge of Bed Standby Assistance OT-Transfer Assessment Sit to and From Stand Sit to and from Stand Standby Assistance Transfers Transfer Ability Standby Assistance,Contact Guard Assistance Technique Transfer Destination Bed,Chair Transfer Technique Stand Step Pivot Devices Transfer Assistive Devices Gait Belt,4 Wheeled Walker Comments Mobility Comments Pt stood for transfer back to bed. OT- Balance Assessment Sitting Balance and Reactions Static Sitting Balance Ability Good Dynamic Sitting Balance Ability Good M8 OT- IP Objective Assessments Start: 11/22/20 15:47 Freq: Status: Active Protocol: Document 11/22/20 13:35 [facility] (Rec: 11/22/20 16:12 [facility] [id number]) OT Gross Range of Motion Upper Extremity Range of Motion Assessment Within Functional Limits OT Strength Upper Extremity Strength Assessment Within Functional Limits OT-Muscle Tone Assessment Muscle Tone WNL Yes M9 OT- IP Assessment and Plan Start: 11/22/20 15:47 Freq: Status: Active Protocol: Document 11/23/20 10:01 [facility] (Rec: 11/23/20 10:11 [facility] [id number]) OT Summary Assessment and Plan Potential Rehabilitation Potential Good Analytic Complexity at Evaluation Low Summary OT Impairments Balance,Functional Cognition, Functional Mobility,Grooming, Dressing,Toileting,Bathing, Toilet Transfers,Shower Transfers,Activity Tolerance Progress Towards Goals Progressing Toward Goals Assessment Summary Pt low complexity and here due to Acute respiratory failure and PNA. Pt's main barrier are decreased activity tolerance, balance, and needing extensive assist for LB dressing. Pt participated in simple ADLs seated at sink but with poor endurance requiring the pt to be pushed over to the sink in the chair and remain sitting for ADLs. Pt was unable to get top off of the tooth paste but then brushed his teeth sitting and washed face before being returned to bedside. Pt then stood with SBA/CGA and transferred to the bed for procedure. Will continue follow for OT services. Goals Grooming Goal Independent Dressing Goal Moderate Assistance Toileting Goal Independent Bathing Goal Moderate Assistance Toilet Transfer Goal Minimal Assistance Shower Transfer Goal Standby Assistance Patient/Caregiver Education Goal Demonstrate Energy Conservation and Pacing, Caregiver Independent Assisting Patient Days to Meet Goals 7 Frequency of Treatment Frequency Of Treatment Once a Day Treatment Plan OT Treatment Plan ADL Training,Functional Cognition Training,Functional Mobility,Patient/Family Education,Discharge Planning Other Treatment Recommendations and Next Standing ADl's at the sink, Treatment Focus energy conservation. Discharge Recommendations OT Discharge Recommendations Home with 24/ Assist Available,Home Health Transportation Needs at Discharge Private Vehicle
--- NOTE | 2020-11-23 11:30 | PT.IPTN ---
Current Diagnoses Unspecified bacterial pneumonia (11/20/20) Physical Therapy Treatment Note M2 PT-IP Current Condition Start: 11/21/20 11:31 Freq: NEEDED Status: Active Protocol: Document 11/21/20 15:34 [facility] (Rec: 11/21/20 15:58 [facility] [id number]) Physical Therapy Current Condition Current Condition Evaluation Date 11/21/20 Treatment Diagnosis Respiratory failure, PNA, impaired mobility Onset Date 11/20/20 Precautions Other Precautions monitor oxygen needs M3 PT-IP Subjective Start: 11/21/20 11:31 Freq: NEEDED Status: Active Protocol: Document 11/23/20 11:09 [facility] (Rec: 11/23/20 14:02 [facility] [id number]) Subjective Physical Therapy Visit Type Type Treatment Note Visit Start Time 11:09 Visit Stop Time 11:30 Total Visit Minutes 21 Number of ABALONE DIVER Visits 1 Physical Therapy Visit Comments Patient Comments Pt needing to use BR Therapy Pain Assessment Pain When Pain Assessed At Rest Pain Present Pain Present Denied Pain M4 PT-IP Mobility and Gait Start: 11/21/20 11:31 Freq: NEEDED Status: Active Protocol: Document 11/23/20 11:09 [facility] (Rec: 11/23/20 14:02 [facility] [id number]) PT-Bed Mobility Assessment Supine to Sit Supine to Sit Standby Assistance,Head of Bed Elevated Scooting Scooting to Edge of Bed Standby Assistance PT-Transfer Assessment Sit to and From Stand Sit to and from Stand Contact Guard Assistance,1 Person Assistance,Use of Upper Extremities Equipment Transfer Assistive Device Gait Belt,4 Wheeled Walker Orthotic/Prosthetic Devices or Brace: No Transfers Transfer Destination Chair,Toilet Transfer Technique ambulated using 4WW Transfer Ability Level of Assist Contact Guard Assistance,1 Person Assistance,Use of Upper Extremities Comments Mobility Comments Pt requires SBA for supine to sit and to EOB. Pt required assist donning shoes. Pt stood CGA and ambulated to BR w/4WW /CGA and assist with O2 lines. Pt sat on toilet SBA with use of wall rail. Pt had BM and required assist with pericare. Pt stood SBA with use of wall rail and ambulate to chair CGA. Pt sat on chair CGA. Pt SpO2 on 3.5 L 88-92% during tx. Pt left in chair with all needs within reach and warm blankets. AUDIENCE DEVELOPMENT MANAGER informed of BM. Gait Assessment Gait Gait Assistance Required: Contact Guard Assist,1 Person Assist Distance (Feet) 20 Able to Maintain Weight Bearing Status Yes During Gait Assistive Devices Assistive Device Gait Belt,4 Wheeled Walker Gait Deviations General Gait Pattern Decreased Stride Length, Decreased Feet Clearance,Step- to Gait Factors Limiting Gait Function Factors Limiting Gait Function Decreased Activity Tolerance, Decreased Strength,Poor Balance,Poor Safety Awareness, Respiratory Distress Comments Gait Comments Pt ambulated ~10ft to toilet and another ~10ft to chair. M5 PT-IP Objective Assessments Start: 11/21/20 11:31 Freq: NEEDED Status: Active Protocol: Document 11/21/20 15:34 [facility] (Rec: 11/21/20 15:58 [facility] [id number]) Orientation Orientation/Cognition Level of Alertness Alert Orientation Name,Age,Birthday,Month,Date, Year,Day of Week,Place, Situation Gross Range of Motion Upper Extremity ROM Assessment Within Functional Limits Lower Extremity ROM Assessment Within Functional Limits Impairments mild stiffness at ankles with dorsiflexion to neutral only Strength Upper Extremity Strength Assessment Bilaterally Impaired Shoulder generalized weakness Lower Extremity Strength Assessment Bilaterally Impaired Hip hip flexion 3+/5 Knee 4/5 Ankle DF/PF 0/5 bilaterally Coordination Assessment Gross Coordination Gross Coordination Impaired Assessment Coordination Comments mild to moderate tremors that he reports varies during the day Sensation Assessment Sensation Gross Sensation Right LE Impaired,Left LE Impaired Sensation Description Numbness Comments Sensation Comments hx neuropathy below knees bilaterally Muscle Tone Muscle Tone WNL Yes Other Assessments Other Other Assessments pt using 2.5 LPM of oxygen at this time. O2 sats at rest are 94% but with any activity he drops into the 80's with increased respiratory rate M6 PT-IP Treatment Start: 11/21/20 11:31 Freq: NEEDED Status: Active Protocol: Document 11/22/20 10:38 [facility] (Rec: 11/22/20 13:43 [facility] [id number]) Physical Therapy Treatment Education Education Provided Safety M7 PT-IP Assessment and Plan Start: 11/21/20 11:31 Freq: NEEDED Status: Active Protocol: Document 11/23/20 11:09 [facility] (Rec: 11/23/20 14:02 [facility] [id number]) PT Summary Assessment and Plan Potential Rehabilitation Potential Fair Summary Impairments Pain,ROM,Strength,Balance, Coordination,Sensation,Tone, Cognition,Bed Mobility, Transfers,Gait,Activity Tolerance Progress Towards Goals Slow Progress due to Medical Issues,Slow Progress due to Activity Tolerance Assessment Summary Pt improving with bed mobility and sit<>stand. Pt SpO2 on 3 .5 L 88-92% during tx. Pt plans to d/c home with assist of family. Goals Bed Mobility Goal Independent Transfer Goal Independent,Front Wheeled Walker,Four Wheeled Walker Gait Goal Standby Assistance,Front Wheel Walker,Four Wheel Walker Gait Distance 50 feet Days to Meet Goals 5 Frequency of Treatment Frequency Of Treatment Once a Day Treatment Plan Physical Therapy Treatment Plan Bed Mobility Training,Transfer Training,Gait Training, Therapeutic Exercise,Balance Retraining,Discharge Planning, Neuromuscular Re-ed, Coordination Retraining Other Recommendations and Next Treatment further gait as able Focus Recommendations To Nursing Amount of Assist Needed 1 Person Assist Discharge Recommendations PT Discharge Recommendations Home with 24/7 Assist Available,Home Health Other Discharge Recommendations family is able to provide 24/7 assist per pt Transportation Needs at Discharge Private Vehicle
[2020-11-23] MEDS: predniSONE 20 MG TABLET 40 MG PO (12:56)
[2020-11-23 13:00] VITALS: BP 140/72; PULSE 80; RESP 18; TEMP 36.6; O2SAT 93
--- NOTE | 2020-11-23 14:28 | P.PN_ITS ---
Subjective Subjective Interval history: He feels his shortness of breath is at his baseline. He does feel very fatigued. Exam Vital Signs (past 8 hours): - 11/23/20 07:41 11/23/20 09:00 Temperature 97.6 F Pulse Rate 54 L 94 H Respiratory Rate 16 20 Blood Pressure 138/82 Pulse Oximetry 94 92 Oxygen Delivery Method Nasal Cannula Oxygen Flow Rate 4 Narrative Exam Narrative: GENERAL APPEARANCE: mild respiratory distress HEENT: Normocephalic, PERRLA, conjunctiva clear, EOMs intact without nystagmus, mucous membranes are moist and pink. NECK/THYROID: neck supple, no JVD, trachea midline. SKIN: [place], warm and dry, venous stasis dermatitis bilateral lower extremities HEART: regular rate and rhythm, S1-S2, no murmur, no rubs or gallops, brisk capillary refill, 2+ edema lower extremities LUNGS: improved lung sound bilaterally, mild left crackles at base ABDOMEN: Soft, no abdominal tenderness,no organomegaly, no flank or suprapubic tenderness, active bowel tones. 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 PSYCH: Good eye contact cooperative, appropriate with stable behavior Objective Labs Result Diagrams: 11/23/20 06:05 11/23/20 06:05 Labs: Laboratory Results - last 24 hr 11/22/20 11/23/20 11/23/20 20:55 06:05 06:05 WBC 7.5 RBC 3.84 L Hgb 12.3 L Hct 37.5 L MCV 97.6 MCH 32.1 MCHC 32.9 RDW 13.8 Plt Count 257 PT INR Sodium 139 Potassium 3.8 Chloride 101 Carbon Dioxide 29 BUN 27 H Creatinine 0.83 Estimated GFR > 60.0 BUN/Creatinine Ratio 32.5 H Glucose 146 H D Calcium 8.5 Magnesium 2.5 H Urine Color Yellow Urine Appearance Slightly cloudy Urine pH 5.0 Ur Specific [place] >=1.030 H Urine Protein Trace H Urine Glucose (UA) Negative Urine Ketones Negative Urine Occult Blood 3+ H Urine Nitrate Negative Urine Bilirubin Negative Urine Urobilinogen 0.2 Ur Leukocyte Esterase Trace H Urine RBC 30-100/hpf H Urine WBC 1-5/hpf Urine Bacteria None seen Ur Culture Indicated? Specimen cultured 11/23/20 06:05 WBC RBC Hgb Hct MCV MCH MCHC RDW Plt Count PT 33.0 H INR 2.9 H Sodium Potassium Chloride Carbon Dioxide BUN Creatinine Estimated GFR BUN/Creatinine Ratio Glucose Calcium Magnesium Urine Color Urine Appearance Urine pH Ur Specific [place] Urine Protein Urine Glucose (UA) Urine Ketones Urine Occult Blood Urine Nitrate Urine Bilirubin Urine Urobilinogen Ur Leukocyte Esterase Urine RBC Urine WBC Urine Bacteria Ur Culture Indicated? [facility] Medical History (Updated 11/20/20 @ 06:25 by SHARMIN Ferraro) Bilateral lower extremity edema Colon cancer Current use of ocean transportation intermediary anticoagulation Diabetes DVT (deep venous thrombosis) Emphysema lung GERD (gastroesophageal reflux disease) History of pulmonary embolus (PE) Tremor Venous stasis dermatitis Surgical History (Updated 11/20/20 @ 06:25 by SHARMIN Ferraro) History of arthroscopic knee surgery History of cholecystectomy Family History (Updated 11/20/20 @ 06:26 by SHARMIN Ferraro) Father Heart attack Mother Heart attack Brother Heart attack Sister Diabetes mellitus Social History household members: children Smoking Status: Former smoker alcohol intake: former Assessment & Plan Assessment & Plan narrative: 85-year-old male patient with a past medical history significant for diabetes type 2, GERD, history of multiple PEs, chronic lower extremity edema on Lasix who presents to the ER via EMS with complaints of shortness of breath for 3 days complaining of associated fevers, rigors and chills, worsening dyspnea with activity. 1. Acute on chronic respiratory failure with hypoxia, multifactorial, acute, present on admission, active. -the patient presents with acute dyspnea with respiratory rate of 28 requiring 4 L of oxygen to maintain a saturation 93%. -cause of shortness of breath include: Congestive heart failure evidence by elevated proBNP at 1150 bilateral extremity swelling with chest x-ray identifying increased interstitial pro minence. COPD exacerbation acute, evidence by CT of the chest identifying moderate to severe emphysema. Pneumonia, evidence by fevers, rigors and chills, procalcitonin of 0.[address] identifying bronchial thickening. -requested RT to consult evaluate and treat. 2. Acute on chronic congestive heart failure with preserved ejection fraction, present on admission, active. -proBNP is 1150. Troponin is 0.020. Chest x-ray identifies interstitial prominence. -recent echocardiogram on 09/19/2020 describes increased LV wall thickness, concentric, EF of 50-55% and and repeat is similar -the patient received Lasix 40 mg IV in the emergency department with diuresis of 1 L. will continue Lasix 40 mg IV daily. 3. Hypokalemia, acute, present on admission, resolved -initial labs find potassium of 3.0 and the patient subsequently received Lasix 40 mg IV. -repleted with oral potassium 4. COPD, emphysema, chronic, active. -patient describes episodic difficulty breathing for which he purchased an oxyg en concentrator that he will use on an as-needed basis. The patient reports using his oxygen for last 3 days. -requested RT to consult evaluate and treat. -ordered albuterol Atrovent nebulizer twice daily and albuterol MDI every 2 hours as needed. -add prednisone for probable copd exacerbation 5. Community-acquired pneumonia, probable bacterial acute, active. -patient reports fevers, rigors and chills at home presents with a temperature of 99.6? upon arrival the ER. He has bibasilar opacities on chest x-ray. -ordered Rocephin 2 g daily and azithromycin 500 mg daily for 3 days. 6. Atrial fibrillation, probable paroxysmal, present on admission, stable. -12 lead EKG finds atrial fibrillation with a rate of 104 without ectopy, left axis shift and left bundle branch block. Previous tracings identify sinus rhythm. -on telemetry the patient is going in and out of atrial fibrillation helping a sinus mechanism with a biphasic P wave consistent with left atrial enlargement. -will continue anticoagulation with warfarin 5 mg daily and check PT and INR. 7. Diabetes type 2, uncontrolled, chronic, stable -patient previously on metformin but was intolerant to side effects. -He is noncompliant with a diabetic diet request dietitian consult. -ordered fingerstick blood sugars a.c. and hs, coverage with low-dose correctional insulin. VTE prophylaxis: Enoxaparin IV fluid: Saline lock Diet: Small consistent carbohydrate Code status: DO NOT RESUSCITATE, the patient designates his daughter to be his surrogate decision maker.
--- NOTE | 2020-11-23 14:44 | PC.NURSE ---
PT A&OX3. noted SOB with exertion. RT at bedside this a.m. evaluating for weaning off of oxygen. Pt recovers quickly to 95-97% on 4 LNC. VSS, afebrile. Pt trialed again this afternoon with improvement. RT discussing with MD that he does have home [address] and feels safe traveling home on RA and applying 02 at home. Pt denies complaints and is anxious to go home. RN reviewed discharge instructions with daughter and patient at bedside. They verbalize agreement and understanding of all discharge follow up instructions and medications. Escorted with all belongings to private car this afternoon.
--- NOTE | 2020-11-23 15:40 | PC.NURSE ---
Pt arrived to the unit rm 219 at approx 1245. A&O x3 forgetful. Moves all extremities. c/o back pain with reclining and slide board transfer. Skin assessment completed. Skin assessment completed. Skin intact. Sensor noted to RUE and B LE edema with skin discoloration. LS dim upper lobes, courseness to B lower lobes 02 sat 95% on 3L NC. Able to tolerate lunch and lethargic reports feeling weak. Allowed to rest this afternoon. A fib on telemetry. Endorsed admission to oncoming RN. Isolation measures in place for COVID +.
--- NOTE | 2020-11-23 18:06 | P.DS_ITS ---
History of Present Illness History of Present Illness Chief complaint: Shortness of breath Narrative: Demian Dinero and P from Faisal Gabriel: Mr. Jimmie Quiroz is an 85-year-old male patient with a past medical history sign ificant for diabetes type 2, GERD, history of multiple PEs, chronic lower extremity edema on Lasix who presents to the ER via EMS with complaints of shortness of breath for 3 days. Patient describes having a chronic shortness of breath for which he bought an O2 concentrator from friend approximately year and half ago that he has used often on. He states when he gets short of breath was concentrated on 70% use for few hours and then turns it off. Additionally the patient endorses having a 2 pillow orthopnea. Three days ago he states he became acutely short of breath with gasping and exertional dyspnea and developed associated rigors and chills. He denies nasal congestion or sore throat h eadaches or dizziness. He denies chest pain or palpitations, he has had shortness of breath as above and reports a nonproductive cough. He has had no abdominal pain, nausea vomiting though describes having a poor appetite. He denies constipation or diarrhea he reports no difficulty urinating. Upon arrival to the ER the patient has a temperature 99.6?, heart rate 107, blood pressure 122/71, respiratory rate of 28 saturating 93% on 4 L nasal cannula. A chest x-ray is taken which finds increased interstitial prominence with faint bibasilar opacities. CTA finds no PE but does identify moderate to severe emphysema with bronchial thickening consistent with bronchitis. Twelve lead EKG: Atrial fibrillation with a ventricular rate of 104, no ectopy, left axis deviation, left bundle branch block. On laboratory analysis he has white count of 7.6 with no shift, hemoglobin of 12.5 and hematocrit of 37.5 and platelets 225. His chemistries are notable for a potassium of 3.0, BUN of 25 and a creatinine of 1.05 and a nonfasting glucose 186. His liver functions are within normal range. His lactic acid of 1.100 procalcitonin of 0.10. His total CK is 119 with a CK-MB of 1.13 for an index is 0.9. He has elevated proBNP of 1150 and a troponin of 0.020. His urine is cloudy has a specific gravity of 1.125 and positive for blood and leukocyte esterase. His COVID screening is negative in the ER the patient received Lasix 40 mg and had a Simmons catheter placed. The patient is admitted to the hospitalist service for multifactorial acute respiratory failure. Discharge Providers Provider Date of admission: 11/20/20 04:46 Discharge Date: 11/23/20 Primary care physician: Ynes Hook PA-C Consults: 11/20/20 05:45 Consult to Discharge Planning Routine Comment: Consult to Respiratory Therapy Evaluate & Treat Comment: Moderate/severe COPD, PNA Physician Instructions: Evaluate and treat 11/21/20 08:56 Consult to Occupational Therapy Evaluate & Treat Comment: Physician Instructions: Evaluate and treat Consult to Physical Therapy Evaluate & Treat Comment: Physician Instructions: Evaluate and Treat Discharge provider: Stephon Phillips MD Summary Hospital Course Discharge Diagnosis: 1. Acute on chronic respiratory failure with hypoxemia 2. Acute on chronic congestive heart failure with preserved EF 3. Probable acute COPD exacerbation 4. Community acquired pneumonia, probable bacteria 5. Atrial fibrillation, paroxysmal 6. Type 2 Diabetes 7. History of DVT 8. GERD Hospital Course: Mr. Quiroz came to the hospital with worsening shortness of breath and orthopnea. His CT showed emphysema and bronchial thickening. His labs showed elevated BNP and bilateral extremity swelling. His ECHO showed preserved EF and unchanged from previous. He was started on antibiotics for pneumonia, and nebulizers and prednisone for COPD exacerbation. In addition he was diuresed with IV lasix with good urine output. He slowly improved from a respiratory standpoint. On day of discharge he was able to be removed from oxygen with saturation remaining greater than 90%. He will be transitioned over to oral lasix. He was given an inhaler for his respiratory symptoms, and he was given prednisone and levofloxacin to complete a course of treatment for COPD and pneumonia. He was not given a beta-ariella here as he was intermittently in sinus bradycardia with periods of what appeared to be afib on tele. The rest of his medical issues remained stable in the hospital. Code status: DNR Discharge Time: 45 minutes Status at Discharge Cognitive/behavioral status at discharge: oriented Functional status at discharge: uses cane/walker Overall status at discharge: patient is progressing back to baseline Exam Vital Signs (past 8 hours): - 11/23/20 13:00 Temperature 98 F Pulse Rate 80 Respiratory Rate 18 Blood Pressure 140/72 Pulse Oximetry 93 Oxygen Delivery Method Nasal Cannula Oxygen Flow Rate 4 Narrative Exam Narrative: GENERAL APPEARANCE: mild respiratory distress HEENT: Normocephalic, PERRLA, conjunctiva clear, EOMs intact without nystagmus, mucous membranes are moist and pink. NECK/THYROID: neck supple, no JVD, trachea midline. SKIN: [place], warm and dry, venous stasis dermatitis bilateral lower extremities HEART: regular rate and rhythm, S1-S2, no murmur, no rubs or gallops, brisk capillary refill, 1+ edema lower extremities, stockings on LUNGS: improved lung sound bilaterally, mild left crackles at base ABDOMEN: Soft, no abdominal tenderness,no organomegaly, no flank or suprapubic tenderness, active bowel tones. 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 PSYCH: Good eye contact cooperative, appropriate with stable behavior Objective Labs Result Diagrams: 11/23/20 06:05 11/23/20 06:05 Labs: Laboratory Results - last 24 hr 11/22/20 11/23/20 11/23/20 20:55 06:05 06:05 WBC 7.5 RBC 3.84 L Hgb 12.3 L Hct 37.5 L MCV 97.6 MCH 32.1 MCHC 32.9 RDW 13.8 Plt Count 257 PT INR Sodium 139 Potassium 3.8 Chloride 101 Carbon Dioxide 29 BUN 27 H Creatinine 0.83 Estimated GFR > 60.0 BUN/Creatinine Ratio 32.5 H Glucose 146 H D Calcium 8.5 Magnesium 2.5 H Urine Color Yellow Urine Appearance Slightly cloudy Urine pH 5.0 Ur Specific [place] >=1.030 H Urine Protein Trace H Urine Glucose (UA) Negative Urine Ketones Negative Urine Occult Blood 3+ H Urine Nitrate Negative Urine Bilirubin Negative Urine Urobilinogen 0.2 Ur Leukocyte Esterase Trace H Urine RBC 30-100/hpf H Urine WBC 1-5/hpf Urine Bacteria None seen Ur Culture Indicated? Specimen cultured 11/23/20 06:05 WBC RBC Hgb Hct MCV MCH MCHC RDW Plt Count PT 33.0 H INR 2.9 H Sodium Potassium Chloride Carbon Dioxide BUN Creatinine Estimated GFR BUN/Creatinine Ratio Glucose Calcium Magnesium Urine Color Urine Appearance Urine pH Ur Specific [place] Urine Protein Urine Glucose (UA) Urine Ketones Urine Occult Blood Urine Nitrate Urine Bilirubin Urine Urobilinogen Ur Leukocyte Esterase Urine RBC Urine WBC Urine Bacteria Ur Culture Indicated? 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 Diabetes DVT (deep venous thrombosis) Emphysema lung GERD (gastroesophageal reflux disease) History of pulmonary embolus (PE) Tremor Venous stasis dermatitis Surgical History (Updated 11/20/20 @ 06:25 by SHARMIN Ferraro) History of arthroscopic knee surgery History of cholecystectomy Family History (Updated 11/20/20 @ 06:26 by SHARMIN Ferraro) Father Heart attack Mother Heart attack Brother Heart attack Sister Diabetes mellitus Social History household members: children Smoking Status: Former smoker alcohol intake: former Discharge Plan Discharge Plan Patient Disposition: Home Provider Discharge Comment: Mr. Quiroz was admitted with shortness of breath. He had fluid overload and was given higher doses of lasix. His ECHO of his heart appeared unchanged from previous. He was also noted to have pneumonia and emphysema on his chest xray. He was given antibiotics for the pneumonia. And he was given breathing treatments and steroids for the emphysema (copd). He is requ iring oxygen on his day of discharge and will be setup with this at home. Discharge orders & Medications Prescriptions: New prednisone 20 mg Tablet 40 mg PO DAILY Qty: 6 RF: 0 albuterol sulfate [Ventolin HFA] 90 mcg/actuation HFA aerosol inhaler 2 puff inhalation Q6H PRN (Reason: shortness of breath or wheezing) Qty: 6.7 RF: 0 levofloxacin 750 mg tablet 750 mg PO DAILY Qty: 3 RF: 0 Continued pantoprazole 40 MG tablet,delayed release (DR/EC) 40 mg PO QAM Qty: 0 RF: 0 doxazosin 4 MG tablet 4 mg PO HS Qty: 0 RF: 0 acetaminophen 650 MG tablet extended release 2 tab PO BID Qty: 0 RF: 0 losartan 50 mg Tablet 50 mg PO BID RF: 0 pioglitazone 15 mg Tablet 15 mg PO QAM RF: 0 warfarin 5 mg Tablet 5 mg PO QPM RF: 0 gabapentin 300 mg Capsule 600 mg PO DAILY RF: 0 furosemide 20 mg Tablet 40 mg PO DAILY RF: 0 Natural Eggshell Membrane 500 mg PO DAILY RF: 0 gabapentin 300 mg capsule 300 mg PO BEDTIME RF: 0 Multi-Vitamins with Iron 1 tab PO DAILY RF: 0 Discontinued doxycycline monohydrate 100 mg Capsule 100 mg PO BID RF: 0 Follow up/Referrals: Ynes Hook PA-C [Primary Care Provider] - Diet/Activity/Treatments Diet: Low-sodium Visit Report/Discharge Packet Instructions: DI for Heart Failure, DI for Chronic Obstructive Pulmonary Disease Discharge Data Primary Care Provider: Ynes Hook Quality MIPS - DC The patient has current or prior documentation of left ventricular ejection fraction (LVEF) less than 40%, or moderate or severely depressed left ventricular systolic function.: No A. The patient was prescribed or already taking an Angiotensin-Converting Enzyme (GABRIEL) Inhibitor, or Angiotensin Receptor Ariella (ARB).: Yes B. The patient was prescribed or already taking a beta-ariella. [If Yes to Both A & B, STOP here]: No Patient not prescribed/taking Beta-ariella for medical/patient/system reason(s) including (ex: allergy, intolerance, contraindication).: bradycardia
== END 2020-11-23 15:00 | disposition home or self-care (01) | DRG 189 ==
LOC: ED 11-20 04:46 → AC 11-20 07:49
PROVIDERS: Internal Medicine; Admitting Provider Nurse Practitioner Adult Health; Emergency Provider Emergency Medicine; PCP Physician Assistant; Visit Provider Nurse Practitioner Adult Health
DX: J96.21 Acute and chronic respiratory failure with hypoxia (principal); I50.33 Acute on chronic diastolic (congestive) heart failure; J15.9 Unspecified bacterial pneumonia; J43.9 Emphysema, unspecified; I48.0 Paroxysmal atrial fibrillation; E11.65 Type 2 diabetes mellitus with hyperglycemia; Z91.11 Patient's noncompliance with dietary regimen; Z20.822 Contact with and (suspected) exposure to COVID-19; E87.6 Hypokalemia; Z86.711 Personal history of pulmonary embolism; Z87.891 Personal history of nicotine dependence
CPT/HCPCS: 36415; 51701; 71045; 71275; 80048; 80053; 80061; 81001; 82550; 82553; 82962; 83036; 83605; 83735; 83880; 84145; 84443; 84484; 85025; 85027; 85610; 87040; 87086; 87147; 87150; 87205; 87635; 93005; 93307; 94640; 94762; 96374; 97116; 97162; 97165; 97530; 97535; 99285; C9803; A9270; J0696; J1940; J3475; J3480; Q9967

== ENCOUNTER → 2020-12-05 18:49 | Outpatient (ROUT) | payer MEDICARE, SELFPAY ==
[2020-11-20 05:26] VITALS: BMI 30.4
[2020-12-05 19:12] LABS: Add Manual Diff / Slide Review NO; Basophils Absolute Auto 0 /uL (0-100); Basophils Percent Auto 0.6 % (0-2); Eosinophils Absolute Auto 100 /uL (0-450); Eosinophils Percent Auto 1.1 % (2-4); Hematocrit 37.4 % (41-53); Hemoglobin 12.2 g/dL (13.5-17.5); Lymphocytes Absolute Auto 1100 /uL (1100-4500); Lymphocytes Percent Auto 14.1 % (25-40); Mean Corpuscular HGB Conc 32.7 % (30-36); Mean Corpuscular Hemoglobin 32.1 PG (26-34); Mean Corpuscular Volume 97.9 fL (80-100); Monocytes Absolute Auto 600 /uL (0-900); Monocytes Percent Auto 7.6 % (3-14); Neutrophils Absolute Auto 6000 /uL (1500-7000); Neutrophils Percent Auto 76.6 % (50-75); Platelet Count 206 X10^3/uL (150-400); Red Blood Cell Count 3.82 X10^6/uL (4.5-5.9); Red Cell Distribution Width 14.1 % (11.6-14.8); White Blood Cell Count 7.9 X10^3/uL (4.5-11.0)
[2020-12-05 19:37] LABS: Alanine Aminotransferase 19 IU/L (<50); Albumin 3.3 g/dL (3.5-5.0); Albumin Globulin Ratio 1.2 (1.0-2.8); Alkaline Phosphatase 71 U/L (38-126); Aspartate Aminotransferase 25 IU/L (17-59); Bilirubin Total 0.9 mg/dL (0.2-1.3); Blood Urea Nitrogen 19 mg/dL (9-20); Calcium 9.3 mg/dL (8.4-10.2); Carbon Dioxide 28 mmol/L (22-32); Chloride 104 mmol/L (98-107); Estimated Glomerular Filt Rate > 60.0 mL/min (>60); Globulin 2.7 g/dL (1.7-4.1); Glucose 153 mg/dL (80-110); HEMOLYSIS < 15 (0-50); Magnesium 1.7 mg/dL (1.6-2.3); Potassium 4.1 mmol/L (3.4-5.1); Sodium 141 mmol/L (137-145)
== END ==
PROVIDERS: PCP Physician Assistant; Visit Provider Physician Assistant
DX: Z86.718 Personal history of other venous thrombosis and embolism (principal); I10 Essential (primary) hypertension; R06.09 Other forms of dyspnea
CPT/HCPCS: 80053; 83735; 85025

== ENCOUNTER 2022-03-14 11:59 | Emergency (ER) | payer MEDICARE, SELFPAY ==
[2020-11-20 05:26] VITALS: BMI 30.4
[2022-03-14 12:10] VITALS: BP 148/78; PULSE 85; RESP 20; TEMP 36.8; O2SAT 95; BMI 26.9
[2022-03-14] MEDS: LIDOCAINE 2% (GLYDO) 6 ML GEL TOP (12:42)
[2022-03-14 12:53] LABS: Appearance Urine UA CLEAR; Bilirubin Urine UA NEGATIVE (NEGATIVE); Color Urine UA YELLOW; Glucose Urine UA NEGATIVE (Negative); Ketones Urine UA NEGATIVE (NEGATIVE); Leukocyte Esterase Urine UA TRACE (NEGATIVE); Nitrite Urine UA NEGATIVE (Negative); Occult Blood Urine UA NEGATIVE (Negative); Protein Urine UA NEGATIVE (Negative); Urobilinogen Urine UA 0.2 E.U./dL (0.2); pH Urine UA 5.5 (4.5-8.0)
[2022-03-14 13:02] LABS: Calcium Oxalate Crystals Urine Few; RBC Urine None Seen (0-5/HPF); Squamous Epithelial Cell Urine 0-1 /HPF (0-5/HPF); WBC Urine 1-5/HPF (0-5/HPF)
[2022-03-14 13:03] LABS: Amorphous Sediment Urine 1+; Bacteria Urine Occasional (0-1); Culture Indicated Urine Specimen Cultured; Mucus Urine 1+ (Negative)
--- NOTE | 2022-03-14 13:43 | DI.CT.S_ITS ---
PROCEDURE: CT KIDNEY URETER BLADDER (KUB) INDICATIONS: urinary retention TECHNIQUE: Axial sections were acquired from the lung bases to the pubic symphysis. Coronal and sagittal reformats were performed. For radiation dose reduction, the following was used: automated exposure control, adjustment of mA and/or kV according to patient size. COMPARISON: None. FINDINGS: Image quality: Excellent. Lung bases: Unremarkable. Heart: No significant findings. URINARY: Right Kidney: No stones or hydronephrosis. There is a simple appearing cyst along the posterior medial right kidney, measuring 3 cm and measuring water density. Right Ureter: No hydroureter. Left Kidney: No stones or hydronephrosis. Left Ureter: No hydroureter. Bladder: A Simmons catheter is seen, which decompresses the bladder. ABDOMEN: Liver: Simple appearing liver cysts are seen. The liver is normal in size and demonstrates no suspicious lesions. Gallbladder: Removed. Biliary ducts: Unremarkable. Pancreas: Unremarkable. Spleen: The spleen is enlarged, measuring 15.3 cm in greatest axial dimension. No focal splenic lesions are seen. Adrenal Glands: Unremarkable. Stomach and Bowel: Stomach, small bowel loops, and colon are unremarkable. Colonic diverticulosis is seen, without findings of active diverticulitis. A normal appendix is incidentally noted. Peritoneum: No abnormal intraperitoneal fluid. No free air. Ventral Wall: No hernia. Abdominal Nodes: No enlarged retroperitoneal or mesenteric lymph nodes. Vessels: Aorta and inferior vena cava are normal in size. Atherosclerotic calcification is noted. PELVIS: Pelvic Organs: The prostate is prominent, measuring 7.1 cm transversely. Prostate calcifications can be seen. Pelvic Nodes: Unremarkable. Miscellaneous: Bilateral fat containing inguinal hernias are seen. Bones: Age-appropriate bony degenerative changes are seen. Mild levoconvex scoliotic curvature is noted. IMPRESSION: A Simmons catheter is seen. The prostate is prominent, measuring 7.1 cm transversely. Negative for kidney stones or obstructive uropathy. Incidental note is made of: Liver cysts Cholecystectomy Splenomegaly Diverticulosis, without active diverticulitis Normal appendix Levoconvex scoliotic curvature Dictated by: Mark Rucker M.D. on 03/14/2022 at 14:07 Approved by: Mark Rucker M.D. on 03/14/2022 at 14:10
[2022-03-14 14:32] LABS: Basophils Absolute Auto 100 /uL (0-100); Basophils Percent Auto 0.7 % (0-2); Eosinophils Absolute Auto 0 /uL (0-450); Hematocrit 32.2 % (41-53); Hemoglobin 10.8 g/dL (13.5-17.5); Lymphocytes Absolute Auto 1800 /uL (1100-4500); Lymphocytes Percent Auto 19.6 % (25-40); Mean Corpuscular HGB Conc 33.4 % (30-36); Mean Corpuscular Hemoglobin 32.9 PG (26-34); Mean Corpuscular Volume 98.7 fL (80-100); Monocytes Absolute Auto 1300 /uL (0-900); Monocytes Percent Auto 14.4 % (3-14); Neutrophils Absolute Auto 5900 /uL (1500-7000); Neutrophils Percent Auto 65.3 % (50-75); Platelet Count 80 X10^3/uL (150-400); Red Blood Cell Count 3.26 X10^6/uL (4.5-5.9); Red Cell Distribution Width 19.3 % (11.6-14.8); White Blood Cell Count 9.1 X10^3/uL (4.5-11.0)
--- NOTE | 2022-03-14 14:37 | ED.MALEGU ---
HPI - Male Genitourinary <SHARMIN Mueller - Last Filed: 03/14/22 16:12> General Chief complaint: Urogenital-Male Stated complaint: cant poop or pee lots of pain Time Seen by Provider: 03/14/22 13:27 Source: patient and family Mode of arrival: Family Vehicle History of Present Illness HPI Narrative: 86-year-old male, former smoker, presents to emergency department with inability to void since last evening or normal defecation x2 weeks. Simmons catheter inserted and obtained 600 mL urine. Patient reports mild improvement of discomfort but does note rectal pain when pushing on his bladder. Patient states that he has not been eating or drinking normally due to his inability to defecate on a normal basis. Patient states that his ability to void significantly deteriorated once he was placed on water pills for his congestive heart failure. Related Data Home Medications Medication Instructions Recorded Confirmed doxazosin 4 mg tablet 4 mg PO HS ##0 08/14/16 11/20/20 pantoprazole 40 mg tablet,delayed 40 mg PO QAM ##0 08/14/16 11/20/20 release acetaminophen 650 mg 2 tab PO BID ##0 07/07/17 11/20/20 tablet,extended release Multi-Vitamins with Iron 1 tab PO DAILY 05/22/18 11/20/20 gabapentin 300 mg capsule 300 mg PO BEDTIME 05/22/18 11/20/20 Natural Eggshell Membrane 500 mg PO DAILY 11/20/20 11/20/20 furosemide 20 mg tablet 40 mg PO DAILY 11/20/20 11/20/20 gabapentin 300 mg capsule 600 mg PO DAILY 11/20/20 11/20/20 losartan 50 mg tablet 50 mg PO BID 11/20/20 11/20/20 pioglitazone 15 mg tablet 15 mg PO QAM 11/20/20 11/20/20 warfarin 5 mg tablet 5 mg PO QPM 11/20/20 11/20/20 Previous Rx's Medication Instructions Recorded albuterol sulfate 90 mcg/actuation 2 puff inhalation Q6H PRN 11/23/20 aerosol inhaler (Ventolin HFA) shortness of breath or wheezing #6.7 grams levofloxacin 750 mg tablet 750 mg PO DAILY #3 tabs 11/23/20 prednisone 20 mg tablet 40 mg PO DAILY #6 tabs 11/23/20 nitrofurantoin 100 mg PO BID uti 10 days #20 caps 03/14/22 monohydrate/macrocrystals 100 mg capsule (Macrobid) Allergies Allergy/AdvReac Type Severity Reaction Status Date / Time Penicillins [PENICILLINS] Allergy Unknown Verified 03/14/22 12:10 Review of Systems <SHARMIN Mueller - Last Filed: 03/14/22 16:12> Review of Systems Narrative: Narrative: GENERAL: Denies chills, fatigue, fever, sweats. See HPI HEENT: Denies sinus pain, ear pain, sore throat, difficulty swallowing, dizziness. RESPIRATORY: Denies dyspnea, cough, wheezing, sputum. CARDIOVASCULAR: Denies chest pain, palpitations, edema. GASTROINTESTINAL: Denies nausea, vomiting, abdominal pain, diarrhea. : Denies dysuria, frequency, hematuria, flank pain. MSK: Denies weakness, joint pain, or bony pain. SKIN: Denies rash, skin lesions, or pruritis. Endorses Bilateral lower extremity edema. NEUROLOGIC: Denies weakness, dizziness, headache, numbness, confusion. PSYCHIATRIC: No concerning psychosocial issues. 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 Diabetes DVT (deep venous thrombosis) Emphysema lung GERD (gastroesophageal reflux disease) History of pulmonary embolus (PE) Tremor Venous stasis dermatitis Surgical History History of arthroscopic knee surgery History of cholecystectomy Family History Father Heart attack Mother Heart attack Brother Heart attack Sister Diabetes mellitus Social History household members: children Smoking Status: Former smoker alcohol intake: former Smoking Status: Former smoker tobacco type: cigarettes alcohol intake frequency: holidays/special occasions only Substance Use Type: does not use Exam <SHARMIN Mueller - Last Filed: 03/14/22 16:12> Narrative Exam Narrative: Exam Narrative: GENERAL: This is a well-nourished, well-developed patient, in no acute distress HEAD: Atraumatic. Normocephalic. EYES: Pupils equal round and reactive. Extraocular motions intact. No scleral icterus, injection or drainage. ENT: Nose without bleeding, purulent drainage. Throat without erythema, tonsillar hypertrophy or exudate. Airway patent. NECK: Trachea midline. No JVD or lymphadenopathy. Nontender. CARDIOVASCULAR: Regular rate and rhythm without murmurs, peripheral pulses intact, cap refill <2 sec. RESPIRATORY: Breath sounds equal and clear bilaterally. No wheezes, rales, or rhonchi. No cough. No increased respiratory effort. No accessory muscle use. GASTROINTESTINAL: Abdomen soft, non-tender, nondistended without guarding or rebound. No suprapubic pain. 15 mL of brown, soft stool evacuated from colon via CANDY. Patient tolerated procedure well. MSK: Moves all extremities. Normal range of motion, no clubbing or edema. Neurovascularly intact. NEURO: A&O x 3. SKIN: Warm, dry, no rashes or lesions noted. Bilateral lower extremity edema 2+. Initial Vital Signs Initial Vital Signs: Vital Signs Temperature 98.3 F 03/14/22 12:10 Pulse Rate 85 03/14/22 12:10 Respiratory Rate 20 03/14/22 12:10 Blood Pressure 148/78 H 03/14/22 12:10 Pulse Oximetry 95 03/14/22 12:10 Oxygen Delivery Method 03/14/22 12:10 Reviewed <Carolyn Francis DO - Last Filed: 03/19/22 21:23> Initial Vital Signs Initial Vital Signs: Vital Signs Temperature 98.3 F 03/14/22 12:10 Pulse Rate 85 03/14/22 12:10 Respiratory Rate 20 03/14/22 12:10 Blood Pressure 148/78 H 03/14/22 12:10 Pulse Oximetry 95 03/14/22 12:10 Oxygen Delivery Method 03/14/22 12:10 Course <SHARMIN Mueller - Last Filed: 03/14/22 16:12> Orders Ordered: Discontinued Medications Lidocaine HCl (Lidocaine 2% (Glydo) 6 Ml Gel) 6 ml TOP NOW ONE Stop: 03/14/22 12:32 Last Admin: 03/14/22 12:42 Dose: 6 ml Documented By: KF Vital Signs Vital signs: Vital Signs - 8 hr 03/14/22 12:10 Temperature 98.3 F Pulse Rate 85 Respiratory Rate 20 Blood Pressure 148/78 H Pulse Oximetry 95 Oxygen Delivery Method Room Air <Carolyn Francis DO - Last Filed: 03/19/22 21:23> Orders Ordered: Discontinued Medications Lidocaine HCl (Lidocaine 2% (Glydo) 6 Ml Gel) 6 ml TOP NOW ONE Stop: 03/14/22 12:32 Last Admin: 03/14/22 12:42 Dose: 6 ml Documented By: KF Vital Signs Vital signs: Vital Signs - 8 hr 03/14/22 12:10 Temperature 98.3 F Pulse Rate 85 Respiratory Rate 20 Blood Pressure 148/78 H Pulse Oximetry 95 Oxygen Delivery Method Room Air MDM - Male Genitourinary <SHARMIN Mueller - Last Filed: 03/14/22 16:12> Differential Diagnosis Differential diagnosis: Likely urinary tract infection, acute retention of urine and other (constipation) Lab Data Result diagrams: 03/14/22 14:21 03/14/22 14:21 Labs: Lab Results 03/14/22 03/14/22 03/14/22 Range/Units 12:45 14:21 14:21 WBC 9.1 (4.5-11.0) X10^3/uL RBC 3.26 L (4.5-5.9) X10^6/uL Hgb 10.8 L (13.5-17.5) g/dL Hct 32.2 L (41-53) % MCV 98.7 (80-100) fL MCH 32.9 (26-34) PG MCHC 33.4 (30-36) % RDW 19.3 H (11.6-14.8) % Plt Count 80 L (150-400) X10^3/uL Neut % (Auto) 65.3 (50-75) % Lymph % (Auto) 19.6 L (25-40) % [place] % (Auto) 14.4 H (3-14) % Eos % (Auto) 0.0 L (2-4) % Baso % (Auto) 0.7 (0-2) % Neut # (Auto) 5900 (4498-3531) /uL Lymph # (Auto) 1800 (7666-1092) /uL [place] # (Auto) 1300 H (0-900) /uL Eos # (Auto) 0 (0-450) /uL Baso # (Auto) 100 (0-100) /uL RBC Morphology Not Reportable Polychromasia 1+ H Anisocytosis 2+ H Macrocytosis 1+ H Spherocytes 1+ H Sodium 137 (137-145) mmol/L Potassium 3.6 (3.4-5.1) mmol/L Chloride 100 (98-107) mmol/L Carbon Dioxide 29 (22-32) mmol/L BUN 18 (9-20) mg/dL Creatinine 0.72 (0.66-1.25) mg/dL Estimated GFR > 60 (>60) mL/min BUN/Creatinine Ratio 25.0 H (6-22) Glucose 124 H (80-110) mg/dL Calcium 8.7 (8.4-10.2) mg/dL Total Bilirubin 2.2 H (0.2-1.3) mg/dL AST 26 (17-59) IU/L ALT 10 (<50) IU/L Alkaline Phosphatase 118 (38-126) U/L Total Protein 6.7 (6.3-8.2) g/dL Albumin 3.3 L (3.5-5.0) g/dL Globulin 3.4 (1.7-4.1) g/dL Albumin/Globulin Ratio 1.0 (1.0-2.8) Urine Color Yellow Urine Appearance Clear Urine pH 5.5 (4.5-8.0) Ur Specific [place] 1.010 (1.000-1.035) Urine Protein Negative (Negative) Urine Glucose (UA) Negative (Negative) g/dL Urine Ketones Negative (NEGATIVE) Urine Occult Blood Negative (Negative) Urine Nitrate Negative (Negative) Urine Bilirubin Negative (NEGATIVE) Urine Urobilinogen 0.2 (0.2) E.U./dL Ur Leukocyte Esterase Trace H (NEGATIVE) Urine RBC None seen (0-5/HPF) Urine WBC 1-5/hpf (0-5/HPF) Ur Squamous Epith Cells 0-1 /hpf (0-5/HPF) Calcium Oxalate Crystal Few H Amorphous Sediment 1+ Urine Bacteria Occasional (0-1) (None) Urine Mucus 1+ H (Negative) Ur Culture Indicated? Specimen cultured Imaging Data CT scan - abdomen/pelvis: Radiologist's Impression: [address] [address] [address] Scan Report Signed Patient: Jimmie Quiroz MR#: [id number] : 1935 Acct:[id number] Age/Sex: 86 / M Date of Service: 03/14/22 Loc: ED Accession Number: [id number] ?? Procedure: CT kidney ureter bladder (KUB) Ordering Provider: Carolyn Francis D.O. PROCEDURE:? CT KIDNEY URETER BLADDER (KUB) ? INDICATIONS:? urinary retention ? TECHNIQUE:? Axial sections were acquired from the lung bases to the pubic symphysis.? Coronal and sagittal reformats were performed.? For radiation dose reduction, the following was used: ?automated exposure control, adjustment of mA and/or kV according to patient size.? ? COMPARISON:? None. ? FINDINGS:? Image quality:? Excellent.? ? Lung bases:? Unremarkable.? ? Heart:? No significant findings. ? URINARY: Right Kidney: ? No stones or hydronephrosis.? There is a simple appearing cyst along the posterior medial right kidney, measuring 3 cm and measuring water density. Right Ureter:? No hydroureter.? ? Left Kidney: ? No stones or hydronephrosis. Left Ureter:? No hydroureter.? ? Bladder:? A Simmons catheter is seen, which decompresses the bladder.? ? ABDOMEN: Liver:? Simple appearing liver cysts are seen. The liver is normal in size and demonstrates no suspicious lesions. Gallbladder:? Removed.? ? Biliary ducts:? Unremarkable.? ? Pancreas:? Unremarkable.? ? Spleen:? The spleen is enlarged, measuring 15.3 cm in greatest axial dimension.? No focal splenic lesions are seen. Adrenal Glands:? Unremarkable.? ? ? Stomach and Bowel:? Stomach, small bowel loops, and colon are unremarkable.? Colonic diverticulosis is seen, without findings of active diverticulitis. A normal appendix is incidentally noted.? Peritoneum:? No abnormal intraperitoneal fluid.? No free air.? ? Ventral Wall: ? No hernia.? Abdominal Nodes:? No enlarged retroperitoneal or mesenteric lymph nodes.? Vessels:? Aorta and inferior vena cava are normal in size.? Atherosclerotic calcification is noted.? ? PELVIS: Pelvic Organs:? The prostate is prominent, measuring 7.1 cm transversely.? Prostate calcifications can be seen. Pelvic Nodes: Unremarkable. Miscellaneous:? Bilateral fat containing inguinal hernias are seen. ? Bones:? Age-appropriate bony degenerative changes are seen.? Mild levoconvex scoliotic curvature is noted.? ? ? IMPRESSION:? ? A Simmons catheter is seen. ? The prostate is prominent, measuring 7.1 cm transversely. ? Negative for kidney stones or obstructive uropathy. ? ? Incidental note is made of: Liver cysts Cholecystectomy Splenomegaly Diverticulosis, without active diverticulitis Normal appendix Levoconvex scoliotic curvature ? ? ? Dictated by: Mark Rucker M.D. on 03/14/2022 at 14:07 ? ? Approved by: Mark Rucker M.D. on 03/14/2022 at 14:10 ? MDM Narrative Medical decision making narrative: 86-year-old male presents emergency department with difficulty defecating x2 weeks and inability to void since last evening. Simmons catheter was inserted and drained 600 mL of urine. Urinalysis reveals increase leukocytes, and will preemptively treat for potential UTI. Will treat with Macrobid due to patient currently on warfarin. CT scan reveals 7.1 cm prostate, but negative for urinary obstruction. Recommended stool softeners to help with bowel movements and will send home with the Simmons catheter and a leg bag. Discussed plan of care and return precautions with patient and spouse, who were agreeable with course of action. <Carolyn Francis, DO - Last Filed: 03/19/22 21:23> Lab Data Labs: Lab Results 03/14/22 03/14/22 03/14/22 Range/Units 12:45 14:21 14:21 WBC 9.1 (4.5-11.0) X10^3/uL RBC 3.26 L (4.5-5.9) X10^6/uL Hgb 10.8 L (13.5-17.5) g/dL Hct 32.2 L (41-53) % MCV 98.7 (80-100) fL MCH 32.9 (26-34) PG MCHC 33.4 (30-36) % RDW 19.3 H (11.6-14.8) % Plt Count 80 L (150-400) X10^3/uL Neut % (Auto) 65.3 (50-75) % Lymph % (Auto) 19.6 L (25-40) % [place] % (Auto) 14.4 H (3-14) % Eos % (Auto) 0.0 L (2-4) % Baso % (Auto) 0.7 (0-2) % Neut # (Auto) 5900 (3220-1528) /uL Lymph # (Auto) 1800 (5784-2503) /uL [place] # (Auto) 1300 H (0-900) /uL Eos # (Auto) 0 (0-450) /uL Baso # (Auto) 100 (0-100) /uL RBC Morphology Not Reportable Polychromasia 1+ H Anisocytosis 2+ H Macrocytosis 1+ H Spherocytes 1+ H Sodium 137 (137-145) mmol/L Potassium 3.6 (3.4-5.1) mmol/L Chloride 100 (98-107) mmol/L Carbon Dioxide 29 (22-32) mmol/L BUN 18 (9-20) mg/dL Creatinine 0.72 (0.66-1.25) mg/dL Estimated GFR > 60 (>60) mL/min BUN/Creatinine Ratio 25.0 H (6-22) Glucose 124 H (80-110) mg/dL Calcium 8.7 (8.4-10.2) mg/dL Total Bilirubin 2.2 H (0.2-1.3) mg/dL AST 26 (17-59) IU/L ALT 10 (<50) IU/L Alkaline Phosphatase 118 (38-126) U/L Total Protein 6.7 (6.3-8.2) g/dL Albumin 3.3 L (3.5-5.0) g/dL Globulin 3.4 (1.7-4.1) g/dL Albumin/Globulin Ratio 1.0 (1.0-2.8) Urine Color Yellow Urine Appearance Clear Urine pH 5.5 (4.5-8.0) Ur Specific [place] 1.010 (1.000-1.035) Urine Protein Negative (Negative) Urine Glucose (UA) Negative (Negative) g/dL Urine Ketones Negative (NEGATIVE) Urine Occult Blood Negative (Negative) Urine Nitrate Negative (Negative) Urine Bilirubin Negative (NEGATIVE) Urine Urobilinogen 0.2 (0.2) E.U./dL Ur Leukocyte Esterase Trace H (NEGATIVE) Urine RBC None seen (0-5/HPF) Urine WBC 1-5/hpf (0-5/HPF) Ur Squamous Epith Cells 0-1 /hpf (0-5/HPF) Calcium Oxalate Crystal Few H Amorphous Sediment 1+ Urine Bacteria Occasional (0-1) (None) Urine Mucus 1+ H (Negative) Ur Culture Indicated? Specimen cultured Discharge Plan Departure Patient Disposition: Home Clinical Impression: Acute retention of urine, Urinary tract infection Instructions: DI for Urinary Retention in Men Activity Restrictions/Additional Instructions: *You have been diagnosed with acute retention of urine. Your CT was normal but does reveal a enlarged prostate. As we discussed, I believe your inability to have a bowel movement has affected your ability to urinate. We have placed a Simmons catheter into your bladder to help drain all urine. Your labs reveal a potential beginnings of a urinary tract infection, for which I will place you on 10 days of antibiotics. As we discussed, please use stool softeners such as MiraLax or magnesium citrate to help you to have a normal bowel movement. I would advise you to obtain a family doctor who can monitor you most closely. For any worsening symptoms, please return to the emergency department. *What to do: *Please continue to take your regular medications as directed. [ x] New medication prescriptions sent to your pharmacy: [[facility] in [place]] [ ] New medication written as a paper prescription [ ] No new medications given *Please follow up with your primary care provider in 2-3 days, call for an appointment. Let them know you were seen in the Emergency Department and that we ask that you be seen in follow up. We will electronically transmit a record of today's note if your PCP is in our system *If you do not have a primary care provider please contact the [facility] Resource line at [phone]. They will ask some questions about your medical history and help get you set up with a doctor in the community. ? Return to ER if you should have any new, worsening or concerning symptoms, such as worsening pain, severe headache, confusion, chest pain, difficulty breathing, fever greater than 101 F, shaking chills, persistent vomiting to the point that you cannot drink fluids, or other new or worsening symptoms. Prescriptions: New nitrofurantoin monohyd/m-cryst [Macrobid] 100 mg capsule 100 mg PO BID 10 Days Qty: 20 0RF Rx Instructions: must administer with a meal/food No Action pantoprazole 40 MG tablet,delayed release (DR/EC) 40 mg PO QAM Qty: 0 doxazosin 4 MG tablet 4 mg PO HS Qty: 0 acetaminophen 650 MG tablet extended release 2 tab PO BID Qty: 0 losartan 50 mg Tablet 50 mg PO BID pioglitazone 15 mg Tablet 15 mg PO QAM warfarin 5 mg Tablet 5 mg PO QPM gabapentin 300 mg Capsule 600 mg PO DAILY furosemide 20 mg Tablet 40 mg PO DAILY Natural Eggshell Membrane 500 mg PO DAILY prednisone 20 mg Tablet 40 mg PO DAILY Qty: 6 0RF albuterol sulfate [Ventolin HFA] 90 mcg/actuation HFA aerosol inhaler 2 puff inhalation Q6H PRN (Reason: shortness of breath or wheezing) Qty: 6.7 0RF levofloxacin 750 mg tablet 750 mg PO DAILY Qty: 3 0RF gabapentin 300 mg capsule 300 mg PO BEDTIME Multi-Vitamins with Iron 1 tab PO DAILY Referrals: Ynes Hook PA-C [Primary Care Provider] - Visit Report Forms: Patient Portal/API <Carolyn Francis DO - Last Filed: 03/19/22 21:23> Cosign ED Attending Cosyeseniaature Attestation: I was immediately available in the department for consultation. Documentation has been reviewed. Patient case was reviewed, as well as imaging, labs and plan.
[2022-03-14 14:44] LABS: Alanine Aminotransferase 10 IU/L (<50); Albumin 3.3 g/dL (3.5-5.0); Alkaline Phosphatase 118 U/L (38-126); Aspartate Aminotransferase 26 IU/L (17-59); Bilirubin Total 2.2 mg/dL (0.2-1.3); Blood Urea Nitrogen 18 mg/dL (9-20); Calcium 8.7 mg/dL (8.4-10.2); Carbon Dioxide 29 mmol/L (22-32); Chloride 100 mmol/L (98-107); Estimated Glomerular Filt Rate > 60 mL/min (>60); Globulin 3.4 g/dL (1.7-4.1); Glucose 124 mg/dL (80-110); HEMOLYSIS < 15 (0-50); Potassium 3.6 mmol/L (3.4-5.1); Sodium 137 mmol/L (137-145); Total Protein 6.7 g/dL (6.3-8.2)
[2022-03-14 15:04] LABS: Add Manual Diff / Slide Review SLIDE REVIEW
[2022-03-14 15:05] LABS: Anisocytosis 2+; Macrocytosis 1+; Polychromasia 1+; Spherocytes 1+
== END 2022-03-14 16:26 | disposition home or self-care (01) ==
PROVIDERS: Emergency Medicine; Emergency Provider Registered Nurse; PCP Physician Assistant
DX: R33.8 Other retention of urine (principal); N39.0 Urinary tract infection, site not specified
CPT/HCPCS: 36415; 74176; 80053; 81001; 85025; 87086; 99283; 99284